=== PATIENT | female | born 1935 | race Caucasian/White ===

== ENCOUNTER 2017-12-07 13:45 | Outpatient (RCR) | payer BC, MEDICARE, SELFPAY ==
[2017-12-07 14:36] VITALS: BP 143/75; PULSE 75; RESP 22; TEMP 36.1; BMI 40.5
--- NOTE | 2017-12-07 19:37 | PCM.WC.HP ---
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 Status: Chronic Current Visit: Yes Code(s): I87.332 - Chronic venous hypertension (idiopathic) with ulcer and inflammation of left lower extremity; L97.929 - Non-pressure chronic ulcer of unspecified part of left lower leg with unspecified severity (3) Chronic kidney disease, stage III (moderate) Status: Chronic Current Visit: Yes Code(s): N18.3 - Chronic kidney disease, stage 3 (moderate) (4) HTN (hypertension) Status: Chronic Current Visit: Yes Qualifiers: Hypertension type: unspecified Qualified Code(s): I10 - Essential (primary) hypertension Code(s): I10 - Essential (primary) hypertension (5) CAD (coronary artery disease) Status: Chronic Current Visit: No Code(s): I25.10 - Atherosclerotic heart disease of [place] coronary artery without angina pectoris History of Present Illness Date of Service: 12/07/17 Chief Complaint: nonhealing wound of left lower leg History of Wound: Stacey presents to the wound healing center for evaluation and treatment of lower extremity edema and nonhealing ulcers of her left lower extremity. She is a poor historian. The wounds have been present for approximately 1 month and she has a long standing history of lower extremity edema preceding the wounds but denies having any vascular testing done in the past. She is on Keflex for treatment of the wounds but has not had improvement. No wound culture has been done prior to her treatment with Keflex. She is unable to wear compression stockings due to not being able to place them. She has erythema of her left great toe but it is not painful. MELISA bandage has been being applied to her leg to keep bandages on the wounds but not for compression. She sits in her recliner with her legs hanging down frequently. She does sleep in a bed. She denies fever or chills. 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) HTN (hypertension) (Chronic) CAD (coronary artery disease) (Chronic) Surgical History: angioplasty, total hip arthroplasty, - Allergies/Adverse Reactions: Allergies No Known Allergies Allergy (Verified 12/07/17 15:07) Home Medications: Ambulatory Orders Medication Instructions Recorded Ferrous Sulfate 325 mg PO DAILY 12/23/15 Metoprolol Tartrate [Lopressor 50 mg PO BID 12/23/15 (beta jignesh)] Omeprazole [Prilosec] 20 mg PO BID 12/23/15 Warfarin [Coumadin] 3.5 mg PO DAILY 12/23/15 Ergocalciferol [Vitamin D] 50,000 unit PO TU 01/13/16 Acetaminophen [Mapap] 500 mg PO DAILY 02/08/17 Guaifenesin [Robitussin] 10 ml PO Q4H PRN PRN 02/08/17 Bisacodyl [Dulcolax] 10 mg PO DAILY PRN #7 tablet 02/11/17 Calcium (Elemental) [Os-Roger 500] 1,000 mg PO DAILY@0800 #30 tablet 02/11/17 Cholecalciferol (VIT D3) [Vitamin 1,000 unit PO DAILY #30 tablet 02/11/17 D3] Docusate Sodium [Colace] 200 mg PO BID #60 capsule 02/11/17 Hydrocodone Bitart/Apap 5-325 1 - 2 tablet PO Q6H PRN PRN #20 02/11/17 [[place] 5/325] tablet Bumetanide 1 mg PO DAILY #30 02/14/17 - Family History Maternal Pulmonary Disease, - Paternal - - father had gangrene in his foot Sibling Diabetes - one with ESRD due to diabetes on HD Lives: Snf Smoking Status: Former smoker Tobacco Use: Non-smoker Alcohol: None Drugs: None Review of Systems Constitutional: Denies: Chills, Fever, Weight Change Eyes: Denies: Pain, Vision Change HEENT: Denies: Difficulty Hearing, Difficulty Swallowing, Sinus Congestion Cardiovascular: Reports: Edema. Denies: Chest Pain, Palpitations Respiratory: Denies: Cough, Shortness of Breath Gastrointestinal: Denies: Diarrhea, Nausea, Vomiting Genitourinary: Denies: Dysuria, Hematuria Skin: Reports: Wounds Hematologic/ Lymphatic: Denies: Easy Bruising, Easy Bleeding - Physical Exam Vital Signs Temp Pulse Resp BP 96.9 F L 75 22 H 143/75 H 12/07/17 14:36 12/07/17 14:36 12/07/17 14:36 12/07/17 14:36 General: Alert, Oriented x3, Cooperative, No apparent distress HEENT: Atraumatic, Normocephalic Oral: Moist Mucosa Lungs: Clear to auscultation Cardiovascular: Regular rate, Regular Rhythm Abdomen: Soft, Non Tender, Obese Extremities: Edema Skin: Ulcer/ Wound Wound Measurements and Assessment WC - Nurse 1 - General Ulcer Measurement Start: 12/07/17 14:23 Freq: Status: Active Protocol: Activity Type Activity Date Activity User E-Sign Co-Sign Detail Recorded Client Recorded Date Recorded By Document 12/07/17 14:36 DL [id number] 12/07/17 15:04 DL 12/07/17 14:36 Wound Center Nurse 1 [Ulcer Assessment] #2 L Post LE -Current Size (cm) - Length 3 -Current Size (cm) - Width 2.6 -Current Size (cm) - Depth 0.2 -Total Square Cm 7.8 -Photo Taken Yes -Classification - Thickness Partial Thickness -Exudate Amt Medium (34-66%) -Exudate Type Serosanguineous -Wound Margin Distinct, Outline Attached -Granulation Amt Medium (34-66%) -Granulation Quality [place] -Necrosis Amt Medium (34-66%) -Necrotic Tissue Type Adherent Slough -Structure Exposed N/A -Texture (Gabby-wound Skin Appearance) Localized Edema Scarring -Moisture (Gabby-wound Skin Appearance No Abnormality ) -Color (Gabyb-wound Skin Appearance) Erythema Hemosiderin Staining -Temperature (Gabby-wound Skin No Abnormality Appearance) (Pt Warm) -Ulcer Cleansing Rinsed/ Irrigated with Saline -Foul Odor after Cleansing No -Anesthetic Used 4% Lidocaine Solution #1 L Med LE -Current Size (cm) - Length 4.2 -Current Size (cm) - Width 5.5 -Current Size (cm) - Depth 0.1 -Total Square Cm 23.10 -Photo Taken Yes -Classification - Thickness Partial Thickness -Exudate Amt Medium (34-66%) -Exudate Type Serosanguineous -Wound Margin Distinct, Outline Attached -Granulation Amt Medium (34-66%) -Granulation Quality [place] -Necrosis Amt Medium (34-66%) -Necrotic Tissue Type Adherent Slough -Structure Exposed N/A -Texture (Gabby-wound Skin Appearance) Localized Edema -Moisture (Gabby-wound Skin Appearance No Abnormality ) -Color (Gabby-wound Skin Appearance) Erythema Hemosiderin Staining -Temperature (Gabby-wound Skin No Abnormality Appearance) (Pt Warm) -Tenderness on Palpation (Gabby-wound No Skin Appearance) -Ulcer Cleansing Rinsed/ Irrigated with Saline -Foul Odor after Cleansing No -Anesthetic Used 4% Lidocaine Solution [Edema Assessment] -Right Calf (cm) 52 -Right Ankle (cm) 28 -Left Calf (cm) 51 -Left Ankle (cm) 27.5 WC - Nurse 2 - General Ulcer CM Notes Start: 12/07/17 14:23 Freq: Status: Active Protocol: Activity Type Activity Date Activity User E-Sign Co-Sign Detail Recorded Client Recorded Date Recorded By Document 12/07/17 15:28 [id number] 12/07/17 15:39 12/07/17 15:28 Wound Center Nurse 2 [Procedure/Treatment] #2 L Post LE -Time 15:33 -Correct Patient Yes -Correct Side, Site, Position Yes -Correct Procedure Yes -Procedure Performed Yes -Type of Procedure Debridement -Clinical Debridement Subcutaneous -Post Debridement Size (cm) - Length 2.7 -Post Debridement Size (cm) - Width 2.3 -Post Debridement Size (cm) - Depth 0.1 -Total Square Cm 6.21 -Wound/Ulcer Outcome Not Healed -Ulcer Cleansing Rinsed/ Irrigated with Saline -Foul Odor after Cleansing No -Bioengineered Tissue No -Bleeding Controlled with NA -Treatment Response Procedure Tolerated Well #1 L Med LE -Time 15:35 -Correct Patient Yes -Correct Side, Site, Position Yes -Correct Procedure Yes -Procedure Performed Yes -Type of Procedure Debridement -Clinical Debridement Subcutaneous -Post Debridement Size (cm) - Length 4.6 -Post Debridement Size (cm) - Width 7.1 -Post Debridement Size (cm) - Depth 0.1 -Total Square Cm 32.66 -Wound/Ulcer Outcome Not Healed -Ulcer Cleansing Rinsed/ Irrigated with Saline -Foul Odor after Cleansing No -Bioengineered Tissue No -Bleeding Controlled with NA -Treatment Response Procedure Tolerated Well [See Physician Procedure note for Specifics] Pain Scale: 0-10 Numeric [Pain] -Is Patient Pain Free? Yes Psych/Mental Status: Normal Affect, Appropriate Debridement Note Post-Debridement Measurements/Treatment WC - Nurse 2 - General Ulcer CM Notes Start: 12/07/17 14:23 Freq: Status: Active Protocol: Activity Type Activity Date Activity User E-Sign Co-Sign Detail Recorded Client Recorded Date Recorded By Document 12/07/17 15:28 [id number] 12/07/17 15:39 12/07/17 15:28 Wound Center Nurse 2 #2 L Post LE -Time 15:33 -Correct Patient Yes -Correct Side, Site, Position Yes -Correct Procedure Yes -Procedure Performed Yes -Type of Procedure Debridement -Clinical Debridement Subcutaneous -Post Debridement Size (cm) - Length 2.7 -Post Debridement Size (cm) - Width 2.3 -Post Debridement Size (cm) - Depth 0.1 -Total Square Cm 6.21 -Wound/Ulcer Outcome Not Healed -Ulcer Cleansing Rinsed/ Irrigated with Saline -Foul Odor after Cleansing No -Bioengineered Tissue No -Bleeding Controlled with NA -Treatment Response Procedure Tolerated Well #1 L Med LE -Time 15:35 -Correct Patient Yes -Correct Side, Site, Position Yes -Correct Procedure Yes -Procedure Performed Yes -Type of Procedure Debridement -Clinical Debridement Subcutaneous -Post Debridement Size (cm) - Length 4.6 -Post Debridement Size (cm) - Width 7.1 -Post Debridement Size (cm) - Depth 0.1 -Total Square Cm 32.66 -Wound/Ulcer Outcome Not Healed -Ulcer Cleansing Rinsed/ Irrigated with Saline -Foul Odor after Cleansing No -Bioengineered Tissue No -Bleeding Controlled with NA -Treatment Response Procedure Tolerated Well Pain Scale: 0-10 Numeric Is Patient Pain Free? Yes Wound debrided: left posterior LE Laterality: Left Type of Debridement: Excisional debridement Anesthesia Used: 4% Lidocaine Solution Depth: Down to and including healthy tissue, in the subcutaneous layer Percentage of wound debrided: 100 Instrument Used: 5mm curette Tissue Removed: yellow slough, devitalized tissue Severity: Fat Layer Exposed Amount of bleeding with debridement: Mild Bleeding Controlled with: Compression and gauze Patient tolerated procedure well - Additional Wound Wound debrided: left medial LE Laterality: Left Type of Debridement: Excisional debridement Anesthesia Used: 4% Lidocaine Solution Depth: Down to and including healthy tissue, in the subcutaneous layer Percentage of wound debrided: 100 Instrument Used: 5mm curette Tissue Removed: yellow slough, devitalized tissue Severity: Fat Layer Exposed Amount of bleeding with debridement: Mild Bleeding Controlled with: Compression and gauze Patient tolerated procedure: Patient tolerated procedure well Assessment/Plan Active Problems Lymphedema of both lower extremities (Chronic) 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) Chronic kidney disease, stage III (moderate) (Chronic) HTN (hypertension) (Chronic) Assessment: lymphedema. venous ulcers of left LE. morbid obesity Plan: Stacey's wounds were evaluated and debrided today. Wound cultures were taken due to odor and erythema which persists although she is taking Keflex for over 1 week. Labs were requested from [facility]. Vascular testing was ordered to be completed prior to her next visit. Will adjust antibiotic based on wound culture results. Will treat her wounds with Aquacel Ag and use Surepress for compression. If her vascular studies are ok would consider using 3M or UNNA compression wraps. F/U in 1 week.
--- NOTE | 2017-12-07 20:40 | HP.PCM_ITS ---
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 Status: Chronic Current Visit: Yes Code(s): I87.332 - Chronic venous hypertension (idiopathic) with ulcer and inflammation of left lower extremity; L97.929 - Non-pressure chronic ulcer of unspecified part of left lower leg with unspecified severity (3) Chronic kidney disease, stage III (moderate) Status: Chronic Current Visit: Yes Code(s): N18.3 - Chronic kidney disease, stage 3 (moderate) (4) HTN (hypertension) Status: Chronic Current Visit: Yes Qualifiers: Hypertension type: unspecified Qualified Code(s): I10 - Essential (primary ) hypertension Code(s): I10 - Essential (primary) hypertension (5) CAD (coronary artery disease) Status: Chronic Current Visit: No Code(s): I25.10 - Atherosclerotic heart disease of [place] coronary artery without angina pectoris History of Present Illness Date of Service: 12/07/17 Chief Complaint: nonhealing wound of left lower leg History of Wound: Stacey presents to the wound healing center for evaluation and treatment of lower extremity edema and nonhealing ulcers of her left lower extremity. She is a poor historian. The wounds have been present for approximately 1 month and she has a long standing history of lower extremity edema preceding the wounds but denies having any vascular testing done in the past. She is on Keflex for treatment of the wounds but has not had improvement. No wound culture has been done prior to her treatment with Keflex. She is unable to wear compression stockings due to not being able to place them. She has erythema of her left great toe but it is not painful. MELISA bandage has been being applied to her leg to keep bandages on the wounds but not for compression. She sits in her recliner with her legs hanging down frequently. She does sleep in a bed. She denies fever or chills. 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) HTN (hypertension) (Chronic) CAD (coronary artery disease) (Chronic) Surgical History: angioplasty, total hip arthroplasty, - Allergies/Adverse Reactions: Allergies No Known Allergies Allergy (Verified 12/07/17 15:07) Home Medications: Ambulatory Orders Medication Instructions Recorded Ferrous Sulfate 325 mg PO DAILY 12/23/15 Metoprolol Tartrate [Lopressor 50 mg PO BID 12/23/15 (beta jignesh)] Omeprazole [Prilosec] 20 mg PO BID 12/23/15 Warfarin [Coumadin] 3.5 mg PO DAILY 12/23/15 Ergocalciferol [Vitamin D] 50,000 unit PO TU 01/13/16 Acetaminophen [Mapap] 500 mg PO DAILY 02/08/17 Guaifenesin [Robitussin] 10 ml PO Q4H PRN PRN 02/08/17 Bisacodyl [Dulcolax] 10 mg PO DAILY PRN #7 tablet 02/11/17 Calcium (Elemental) [Os-Roger 500] 1,000 mg PO DAILY@0800 #30 tablet 02/11/17 Cholecalciferol (VIT D3) [Vitamin 1,000 unit PO DAILY #30 tablet 02/11/17 D3] Docusate Sodium [Colace] 200 mg PO BID #60 capsule 02/11/17 Hydrocodone Bitart/Apap 5-325 1 - 2 tablet PO Q6H PRN PRN #20 02/11/17 [[place] 5/325] tablet Bumetanide 1 mg PO DAILY #30 02/14/17 - Family History Maternal Pulmonary Disease, - Paternal - - father had gangrene in his foot Sibling Diabetes - one with ESRD due to diabetes on HD Lives: [facility] Smoking Status: Former smoker Tobacco Use: Non-smoker Alcohol: None Drugs: None Review of Systems Constitutional: Denies: Chills, Fever, Weight Change Eyes: Denies: Pain, Vision Change HEENT: Denies: Difficulty Hearing, Difficulty Swallowing, Sinus Congestion Cardiovascular: Reports: Edema. Denies: Chest Pain, Palpitations Respiratory: Denies: Cough, Shortness of Breath Gastrointestinal: Denies: Diarrhea, Nausea, Vomiting Genitourinary: Denies: Dysuria, Hematuria Skin: Reports: Wounds Hematologic/ Lymphatic: Denies: Easy Bruising, Easy Bleeding - Physical Exam Vital Signs Temp Pulse Resp BP 96.9 F L 75 22 H 143/75 H 12/07/17 14:36 12/07/17 14:36 12/07/17 14:36 12/07/17 14:36 General: Alert, Oriented x3, Cooperative, No apparent distress HEENT: Atraumatic, Normocephalic Oral: Moist Mucosa Lungs: Clear to auscultation Cardiovascular: Regular rate, Regular Rhythm Abdomen: Soft, Non Tender, Obese Extremities: Edema Skin: Ulcer/ Wound Wound Measurements and Assessment WC - Nurse 1 - General Ulcer Measurement Start: 12/07/17 14:23 Freq: Status: Active Protocol: Activity Type Activity Date Activity User E-Sign Co-Sign Detail Recorded Client Recorded Date Recorded By Document 12/07/17 14:36 DL [id number] 12/07/17 15:04 DL 12/07/17 14:36 Wound Center Nurse 1 [Ulcer Assessment] #2 L Post LE -Current Size (cm) - Length 3 -Current Size (cm) - Width 2.6 -Current Size (cm) - Depth 0.2 -Total Square Cm 7.8 -Photo Taken Yes -Classification - Thickness Partial Thickness -Exudate Amt Medium (34-66%) -Exudate Type Serosanguineous -Wound Margin Distinct, Outline Attached -Granulation Amt Medium (34-66%) -Granulation Quality [place] -Necrosis Amt Medium (34-66%) -Necrotic Tissue Type Adherent Slough -Structure Exposed N/A -Texture (Gabby-wound Skin Appearance) Localized Edema Scarring -Moisture (Gabby-wound Skin Appearance No Abnormality ) -Color (Gabby-wound Skin Appearance) Erythema Hemosiderin Staining -Temperature (Gabby-wound Skin No Abnormality Appearance) (Pt Warm) -Ulcer Cleansing Rinsed/ Irrigated with Saline -Foul Odor after Cleansing No -Anesthetic Used 4% Lidocaine Solution #1 L Med LE -Current Size (cm) - Length 4.2 -Current Size (cm) - Width 5.5 -Current Size (cm) - Depth 0.1 -Total Square Cm 23.10 -Photo Taken Yes -Classification - Thickness Partial Thickness -Exudate Amt Medium (34-66%) -Exudate Type Serosanguineous -Wound Margin Distinct, Outline Attached -Granulation Amt Medium (34-66%) -Granulation Quality [place] -Necrosis Amt Medium (34-66%) -Necrotic Tissue Type Adherent Slough -Structure Exposed N/A -Texture (Gabby-wound Skin Appearance) Localized Edema -Moisture (Gabby-wound Skin Appearance No Abnormality ) -Color (Gabby-wound Skin Appearance) Erythema Hemosiderin Staining -Temperature (Gabby-wound Skin No Abnormality Appearance) (Pt Warm) -Tenderness on Palpation (Gabby-wound No Skin Appearance) -Ulcer Cleansing Rinsed/ Irrigated with Saline -Foul Odor after Cleansing No -Anesthetic Used 4% Lidocaine Solution [Edema Assessment] -Right Calf (cm) 52 -Right Ankle (cm) 28 -Left Calf (cm) 51 -Left Ankle (cm) 27.5 WC - Nurse 2 - General Ulcer CM Notes Start: 12/07/17 14:23 Freq: Status: Active Protocol: Activity Type Activity Date Activity User E-Sign Co-Sign Detail Recorded Client Recorded Date Recorded By Document 12/07/17 15:28 [id number] 12/07/17 15:39 12/07/17 15:28 Wound Center Nurse 2 [Procedure/Treatment] #2 L Post LE -Time 15:33 -Correct Patient Yes -Correct Side, Site, Position Yes -Correct Procedure Yes -Procedure Performed Yes -Type of Procedure Debridement -Clinical Debridement Subcutaneous -Post Debridement Size (cm) - Length 2.7 -Post Debridement Size (cm) - Width 2.3 -Post Debridement Size (cm) - Depth 0.1 -Total Square Cm 6.21 -Wound/Ulcer Outcome Not Healed -Ulcer Cleansing Rinsed/ Irrigated with Saline -Foul Odor after Cleansing No -Bioengineered Tissue No -Bleeding Controlled with NA -Treatment Response Procedure Tolerated Well #1 L Med LE -Time 15:35 -Correct Patient Yes -Correct Side, Site, Position Yes -Correct Procedure Yes -Procedure Performed Yes -Type of Procedure Debridement -Clinical Debridement Subcutaneous -Post Debridement Size (cm) - Length 4.6 -Post Debridement Size (cm) - Width 7.1 -Post Debridement Size (cm) - Depth 0.1 -Total Square Cm 32.66 -Wound/Ulcer Outcome Not Healed -Ulcer Cleansing Rinsed/ Irrigated with Saline -Foul Odor after Cleansing No -Bioengineered Tissue No -Bleeding Controlled with NA -Treatment Response Procedure Tolerated Well [See Physician Procedure note for Specifics] Pain Scale: 0-10 Numeric [Pain] -Is Patient Pain Free? Yes Psych/Mental Status: Normal Affect, Appropriate Debridement Note Post-Debridement Measurements/Treatment WC - Nurse 2 - General Ulcer CM Notes Start: 12/07/17 14:23 Freq: Status: Active Protocol: Activity Type Activity Date Activity User E-Sign Co-Sign Detail Recorded Client Recorded Date Recorded By Document 12/07/17 15:28 [id number] 12/07/17 15:39 12/07/17 15:28 Wound Center Nurse 2 #2 L Post LE -Time 15:33 -Correct Patient Yes -Correct Side, Site, Position Yes -Correct Procedure Yes -Procedure Performed Yes -Type of Procedure Debridement -Clinical Debridement Subcutaneous -Post Debridement Size (cm) - Length 2.7 -Post Debridement Size (cm) - Width 2.3 -Post Debridement Size (cm) - Depth 0.1 -Total Square Cm 6.21 -Wound/Ulcer Outcome Not Healed -Ulcer Cleansing Rinsed/ Irrigated with Saline -Foul Odor after Cleansing No -Bioengineered Tissue No -Bleeding Controlled with NA -Treatment Response Procedure Tolerated Well #1 L Med LE -Time 15:35 -Correct Patient Yes -Correct Side, Site, Position Yes -Correct Procedure Yes -Procedure Performed Yes -Type of Procedure Debridement -Clinical Debridement Subcutaneous -Post Debridement Size (cm) - Length 4.6 -Post Debridement Size (cm) - Width 7.1 -Post Debridement Size (cm) - Depth 0.1 -Total Square Cm 32.66 -Wound/Ulcer Outcome Not Healed -Ulcer Cleansing Rinsed/ Irrigated with Saline -Foul Odor after Cleansing No -Bioengineered Tissue No -Bleeding Controlled with NA -Treatment Response Procedure Tolerated Well Pain Scale: 0-10 Numeric Is Patient Pain Free? Yes Wound debrided: left posterior LE Laterality: Left Type of Debridement: Excisional debridement Anesthesia Used: 4% Lidocaine Solution Depth: Down to and including healthy tissue, in the subcutaneous layer Percentage of wound debrided: 100 Instrument Used: 5mm curette Tissue Removed: yellow slough, devitalized tissue Severity: Fat Layer Exposed Amount of bleeding with debridement: Mild Bleeding Controlled with: Compression and gauze Patient tolerated procedure well - Additional Wound Wound debrided: left medial LE Laterality: Left Type of Debridement: Excisional debridement Anesthesia Used: 4% Lidocaine Solution Depth: Down to and including healthy tissue, in the subcutaneous layer Percentage of wound debrided: 100 Instrument Used: 5mm curette Tissue Removed: yellow slough, devitalized tissue Severity: Fat Layer Exposed Amount of bleeding with debridement: Mild Bleeding Controlled with: Compression and gauze Patient tolerated procedure: Patient tolerated procedure well Assessment/Plan Active Problems Lymphedema of both lower extremities (Chronic) 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) Chronic kidney disease, stage III (moderate) (Chronic) HTN (hypertension) (Chronic) Assessment: lymphedema. venous ulcers of left LE. morbid obesity Plan: Stacey's wounds were evaluated and debrided today. Wound cultures were taken due to odor and erythema which persists although she is taking Keflex for over 1 week. Labs were requested from [facility]. Vascular testing was ordered to be completed prior to her next visit. Will adjust antibiotic based on wound culture results. Will treat her wounds with Aquacel Ag and use Surepress for compression. If her vascular studies are ok would consider using 3M or UNNA compression wraps. F/U in 1 week.
== END 2017-12-15 23:59 ==
LOC: WC 13:45
PROVIDERS: Family Provider Internal Medicine; PCP Internal Medicine; Visit Provider Family Medicine
DX: I87.332 Chronic venous hypertension (idiopathic) with ulcer and inflammation of left lower extremity (principal); L97.822 Non-pressure chronic ulcer of other part of left lower leg with fat layer exposed; I12.9 Hypertensive chronic kidney disease with stage 1 through stage 4 chronic kidney disease, or unspecified chronic kidney disease; N18.3 Chronic kidney disease, stage 3 (moderate); I89.0 Lymphedema, not elsewhere classified; E66.01 Morbid (severe) obesity due to excess calories; Z68.41 Body mass index [BMI] 40.0-44.9, adult; Z71.3 Dietary counseling and surveillance; I25.10 Atherosclerotic heart disease of native coronary artery without angina pectoris; Z87.891 Personal history of nicotine dependence
CPT/HCPCS: 11042; 87070; 87075; 87076; 87077; 87186; 87205; 99214; G0463

== ENCOUNTER 2018-01-11 14:00 | Outpatient (RCR) | payer BC, MEDICARE, SELFPAY ==
[2017-12-16 01:14] VITALS: BP 143/75; PULSE 75; RESP 22; TEMP 36.1
[2017-12-28 13:49] VITALS: BP 159/74; PULSE 76; RESP 18; TEMP 36.7
--- NOTE | 2017-12-28 18:13 | PCM.WC.PN ---
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 Status: Chronic Current Visit: Yes Code(s): I87.332 - Chronic venous hypertension (idiopathic) with ulcer and inflammation of left lower extremity; L97.929 - Non-pressure chronic ulcer of unspecified part of left lower leg with unspecified severity Type of Wound Date of Service: 12/28/17 Chief Complaint: nonhealing wound of left lower leg History of Wound: Stacey presents to the wound healing center for evaluation and treatment of lower extremity edema and nonhealing ulcers of her left lower extremity. She is a poor historian. The wounds have been present for approximately 1 month and she has a long standing history of lower extremity edema preceding the wounds but denies having any vascular testing done in the past. She is on Keflex for treatment of the wounds but has not had improvement. No wound culture has been done prior to her treatment with Keflex. She is unable to wear compression stockings due to not being able to place them. She has erythema of her left great toe but it is not painful. MELISA bandage has been being applied to her leg to keep bandages on the wounds but not for compression. She sits in her recliner with her legs hanging down frequently. She does sleep in a bed. She denies fever or chills. Progress of Wound: Stacey's wounds have improved. She completed course of Bactrim DS but was unable to tolerate Flagyl due to itching. She has been having her legs wrapped with MELISA bandages. She denies fever, chills or increased pain. - Physical Exam Vital Signs Temp Pulse Resp BP 98.0 F 76 18 159/74 H 12/28/17 13:49 12/28/17 13:49 12/28/17 13:49 12/28/17 13:49 General: Alert, Oriented x3, Cooperative, No apparent distress HEENT: Atraumatic, Normocephalic Oral: Moist Mucosa Abdomen: Soft, Non-Distended, Obese Extremities: Edema Skin: Ulcer/ Wound Wound Measurements and Assessment WC - Nurse 1 - General Ulcer Measurement Start: 12/28/17 10:38 Freq: Status: Active Protocol: Activity Type Activity Date Activity User E-Sign Co-Sign Detail Recorded Client Recorded Date Recorded By Document 12/28/17 13:49 [id number] 12/28/17 13:53 CS 12/28/17 13:49 Wound Center Nurse 1 [Ulcer Assessment] #2 L Post LE -Combined with other wound No -Current Size (cm) - Length 2.4 -Current Size (cm) - Width 2.2 -Current Size (cm) - Depth 0 -Total Square Cm 5.28 -Photo Taken No -Epithelialization Small 1-33% -Tunneling No -Undermining/Tunneling No -Circular Undermining No -Exudate Amt Small (1-33%) -Exudate Type Serosanguineous -Wound Margin Distinct, Outline Attached -Granulation Amt Small (1-33%) -Granulation Quality [place] -Necrosis Amt None Present (0 %) -Necrotic Tissue Type Adherent Slough -Structure Exposed None/Limited to Skin Breakdown -Texture (Gabby-wound Skin Appearance) Assessed Not Assessed -Moisture (Gabby-wound Skin Appearance Assessed ) Maceration -Color (Gabby-wound Skin Appearance) Assessed Erythema -Temperature (Gabby-wound Skin No Abnormality Appearance) (Pt Warm) -Tenderness on Palpation (Gabby-wound No Skin Appearance) -Ulcer Cleansing Wound Cleanser -Foul Odor after Cleansing No -Anesthetic Used 4% Lidocaine Solution #1 L Med LE -Combined with other wound No -Current Size (cm) - Length 4.5 -Current Size (cm) - Width 3.4 -Current Size (cm) - Depth 0 -Total Square Cm 15.30 -Photo Taken No -Epithelialization Medium 34-66% -Tunneling No -Undermining/Tunneling No -Circular Undermining No -Exudate Amt Small (1-33%) -Exudate Type Serosanguineous -Wound Margin Distinct, Outline Attached -Granulation Amt Large (67-100%) -Granulation Quality [place] -Slough/Fibrin No -Necrosis Amt None Present (0 %) -Necrotic Tissue Type Adherent Slough -Structure Exposed None/Limited to Skin Breakdown -Texture (Gabby-wound Skin Appearance) Assessed Scarring -Moisture (Gabby-wound Skin Appearance No Abnormality ) Assessed -Color (Gabby-wound Skin Appearance) Assessed Erythema -Temperature (Gabby-wound Skin No Abnormality Appearance) (Pt Warm) -Tenderness on Palpation (Gabby-wound No Skin Appearance) -Ulcer Cleansing Wound Cleanser -Foul Odor after Cleansing No -Anesthetic Used 4% Lidocaine Solution [Edema Assessment] -Lower Limb Edema Present Yes -Right Calf (cm) 45.4 -Right Ankle (cm) 28.2 -Left Calf (cm) 45.0 -Left Ankle (cm) 28.5 WC - Nurse 2 - General Ulcer CM Notes Start: 12/28/17 10:38 Freq: Status: Active Protocol: Activity Type Activity Date Activity User E-Sign Co-Sign Detail Recorded Client Recorded Date Recorded By Document 12/28/17 14:48 [id number] 12/28/17 14:54 12/28/17 14:48 Wound Center Nurse 2 [Procedure/Treatment] #2 L Post LE -Time 14:53 -Correct Patient Yes -Correct Side, Site, Position Yes -Correct Procedure Yes -Procedure Performed Yes -Type of Procedure Debridement -Clinical Debridement Subcutaneous -Post Debridement Size (cm) - Length 1.4 -Post Debridement Size (cm) - Width 0.5 -Post Debridement Size (cm) - Depth 0.1 -Total Square Cm 0.70 -Wound/Ulcer Outcome Not Healed -Ulcer Cleansing Rinsed/ Irrigated with Saline -Foul Odor after Cleansing No -Bioengineered Tissue No -Topical Lidocaine (%) 4 -Bleeding Controlled with Pressure -Treatment Response Procedure Tolerated Well #1 L Med LE -Time 14:53 -Correct Patient Yes -Correct Side, Site, Position Yes -Correct Procedure Yes -Procedure Performed Yes -Type of Procedure Debridement -Clinical Debridement Subcutaneous -Post Debridement Size (cm) - Length 1.2 -Post Debridement Size (cm) - Width 4.8 -Post Debridement Size (cm) - Depth 0.1 -Total Square Cm 5.76 -Wound/Ulcer Outcome Not Healed -Ulcer Cleansing Rinsed/ Irrigated with Saline -Foul Odor after Cleansing No -Bioengineered Tissue No -Topical Lidocaine (%) 4 -Bleeding Controlled with Pressure -Treatment Response Procedure Tolerated Well [See Physician Procedure note for Specifics] Pain Scale: 0-10 Numeric [Pain] -Is Patient Pain Free? Yes Psych/Mental Status: Normal Affect, Appropriate Debridement Note Post-Debridement Measurements/Treatment VALENTINA - Nurse 2 - General Ulcer CM Notes Start: 12/28/17 10:38 Freq: Status: Active Protocol: Activity Type Activity Date Activity User E-Sign Co-Sign Detail Recorded Client Recorded Date Recorded By Document 12/28/17 14:48 [id number] 12/28/17 14:54 12/28/17 14:48 Wound Center Nurse 2 #2 L Post LE -Time 14:53 -Correct Patient Yes -Correct Side, Site, Position Yes -Correct Procedure Yes -Procedure Performed Yes -Type of Procedure Debridement -Clinical Debridement Subcutaneous -Post Debridement Size (cm) - Length 1.4 -Post Debridement Size (cm) - Width 0.5 -Post Debridement Size (cm) - Depth 0.1 -Total Square Cm 0.70 -Wound/Ulcer Outcome Not Healed -Ulcer Cleansing Rinsed/ Irrigated with Saline -Foul Odor after Cleansing No -Bioengineered Tissue No -Topical Lidocaine (%) 4 -Bleeding Controlled with Pressure -Treatment Response Procedure Tolerated Well #1 L Med LE -Time 14:53 -Correct Patient Yes -Correct Side, Site, Position Yes -Correct Procedure Yes -Procedure Performed Yes -Type of Procedure Debridement -Clinical Debridement Subcutaneous -Post Debridement Size (cm) - Length 1.2 -Post Debridement Size (cm) - Width 4.8 -Post Debridement Size (cm) - Depth 0.1 -Total Square Cm 5.76 -Wound/Ulcer Outcome Not Healed -Ulcer Cleansing Rinsed/ Irrigated with Saline -Foul Odor after Cleansing No -Bioengineered Tissue No -Topical Lidocaine (%) 4 -Bleeding Controlled with Pressure -Treatment Response Procedure Tolerated Well Pain Scale: 0-10 Numeric Is Patient Pain Free? Yes Wound debrided: left posterior LE Laterality: Left Type of Debridement: Excisional debridement Anesthesia Used: 4% Lidocaine Solution Depth: Down to and including healthy tissue, in the subcutaneous layer Percentage of wound debrided: 100 Instrument Used: 5mm curette Tissue Removed: yellow slough, devitalized tissue Severity: Fat Layer Exposed Amount of bleeding with debridement: Mild Bleeding Controlled with: Compression and gauze Patient tolerated procedure well - Additional Wound Wound debrided: left medial LE cluster Laterality: Left Type of Debridement: Excisional debridement Anesthesia Used: 4% Lidocaine Solution Depth: Down to and including healthy tissue, in the subcutaneous layer Percentage of wound debrided: 100 Instrument Used: 5mm curette Tissue Removed: yellow slough, devitalized tissue Severity: Fat Layer Exposed Amount of bleeding with debridement: Mild Bleeding Controlled with: Compression and gauze Patient tolerated procedure: Patient tolerated procedure well Assessment/Plan Active Problems Lymphedema of both lower extremities (Chronic) 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) Assessment: lymphedema. venous ulcers of left LE. morbid obesity Plan: [place]'s wounds were evaluated and debrided today. Labs were requested from [facility] but have not been received. Vascular testing was ordered to be completed prior to her next visit but this was not done. Will continue to treat her wounds with Aquacel Ag and use Surepress for compression. Encouraged increased protein and offloading of her posterior left leg. F/U in 1 week.
--- NOTE | 2017-12-28 18:19 | PN.PCM_ITS ---
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 Status: Chronic Current Visit: Yes Code(s): I87.332 - Chronic venous hypertension (idiopathic) with ulcer and inflammation of left lower extremity; L97.929 - Non-pressure chronic ulcer of unspecified part of left lower leg with unspecified severity Type of Wound Date of Service: 12/28/17 Chief Complaint: nonhealing wound of left lower leg History of Wound: Stacey presents to the wound healing center for evaluation and treatment of lower extremity edema and nonhealing ulcers of her left lower extremity. She is a poor historian. The wounds have been present for approximately 1 month and she has a long standing history of lower extremity edema preceding the wounds but denies having any vascular testing done in the past. She is on Keflex for treatment of the wounds but has not had improvement. No wound culture has been done prior to her treatment with Keflex. She is unable to wear compression stockings due to not being able to place them. She has erythema of her left great toe but it is not painful. MELISA bandage has been being applied to her leg to keep bandages on the wounds but not for compression. She sits in her recliner with her legs hanging down frequently. She does sleep in a bed. She denies fever or chills. Progress of Wound: Stacey's wounds have improved. She completed course of Bactrim DS but was unable to tolerate Flagyl due to itching. She has been having her legs wrapped with MELISA bandages. She denies fever, chills or increased pain. - Physical Exam Vital Signs Temp Pulse Resp BP 98.0 F 76 18 159/74 H 12/28/17 13:49 12/28/17 13:49 12/28/17 13:49 12/28/17 13:49 General: Alert, Oriented x3, Cooperative, No apparent distress HEENT: Atraumatic, Normocephalic Oral: Moist Mucosa Abdomen: Soft, Non-Distended, Obese Extremities: Edema Skin: Ulcer/ Wound Wound Measurements and Assessment WC - Nurse 1 - General Ulcer Measurement Start: 12/28/17 10:38 Freq: Status: Active Protocol: Activity Type Activity Date Activity User E-Sign Co-Sign Detail Recorded Client Recorded Date Recorded By Document 12/28/17 13:49 [id number] 12/28/17 13:53 CS 12/28/17 13:49 Wound Center Nurse 1 [Ulcer Assessment] #2 L Post LE -Combined with other wound No -Current Size (cm) - Length 2.4 -Current Size (cm) - Width 2.2 -Current Size (cm) - Depth 0 -Total Square Cm 5.28 -Photo Taken No -Epithelialization Small 1-33% -Tunneling No -Undermining/Tunneling No -Circular Undermining No -Exudate Amt Small (1-33%) -Exudate Type Serosanguineous -Wound Margin Distinct, Outline Attached -Granulation Amt Small (1-33%) -Granulation Quality [place] -Necrosis Amt None Present (0 %) -Necrotic Tissue Type Adherent Slough -Structure Exposed None/Limited to Skin Breakdown -Texture (Gabby-wound Skin Appearance) Assessed Not Assessed -Moisture (Gabby-wound Skin Appearance Assessed ) Maceration -Color (Gabby-wound Skin Appearance) Assessed Erythema -Temperature (Gabby-wound Skin No Abnormality Appearance) (Pt Warm) -Tenderness on Palpation (Gabby-wound No Skin Appearance) -Ulcer Cleansing Wound Cleanser -Foul Odor after Cleansing No -Anesthetic Used 4% Lidocaine Solution #1 L Med LE -Combined with other wound No -Current Size (cm) - Length 4.5 -Current Size (cm) - Width 3.4 -Current Size (cm) - Depth 0 -Total Square Cm 15.30 -Photo Taken No -Epithelialization Medium 34-66% -Tunneling No -Undermining/Tunneling No -Circular Undermining No -Exudate Amt Small (1-33%) -Exudate Type Serosanguineous -Wound Margin Distinct, Outline Attached -Granulation Amt Large (67-100%) -Granulation Quality [place] -Slough/Fibrin No -Necrosis Amt None Present (0 %) -Necrotic Tissue Type Adherent Slough -Structure Exposed None/Limited to Skin Breakdown -Texture (Gabby-wound Skin Appearance) Assessed Scarring -Moisture (Gabby-wound Skin Appearance No Abnormality ) Assessed -Color (Gabby-wound Skin Appearance) Assessed Erythema -Temperature (Gabby-wound Skin No Abnormality Appearance) (Pt Warm) -Tenderness on Palpation (Gabby-wound No Skin Appearance) -Ulcer Cleansing Wound Cleanser -Foul Odor after Cleansing No -Anesthetic Used 4% Lidocaine Solution [Edema Assessment] -Lower Limb Edema Present Yes -Right Calf (cm) 45.4 -Right Ankle (cm) 28.2 -Left Calf (cm) 45.0 -Left Ankle (cm) 28.5 WC - Nurse 2 - General Ulcer CM Notes Start: 12/28/17 10:38 Freq: Status: Active Protocol: Activity Type Activity Date Activity User E-Sign Co-Sign Detail Recorded Client Recorded Date Recorded By Document 12/28/17 14:48 [id number] 12/28/17 14:54 12/28/17 14:48 Wound Center Nurse 2 [Procedure/Treatment] #2 L Post LE -Time 14:53 -Correct Patient Yes -Correct Side, Site, Position Yes -Correct Procedure Yes -Procedure Performed Yes -Type of Procedure Debridement -Clinical Debridement Subcutaneous -Post Debridement Size (cm) - Length 1.4 -Post Debridement Size (cm) - Width 0.5 -Post Debridement Size (cm) - Depth 0.1 -Total Square Cm 0.70 -Wound/Ulcer Outcome Not Healed -Ulcer Cleansing Rinsed/ Irrigated with Saline -Foul Odor after Cleansing No -Bioengineered Tissue No -Topical Lidocaine (%) 4 -Bleeding Controlled with Pressure -Treatment Response Procedure Tolerated Well #1 L Med LE -Time 14:53 -Correct Patient Yes -Correct Side, Site, Position Yes -Correct Procedure Yes -Procedure Performed Yes -Type of Procedure Debridement -Clinical Debridement Subcutaneous -Post Debridement Size (cm) - Length 1.2 -Post Debridement Size (cm) - Width 4.8 -Post Debridement Size (cm) - Depth 0.1 -Total Square Cm 5.76 -Wound/Ulcer Outcome Not Healed -Ulcer Cleansing Rinsed/ Irrigated with Saline -Foul Odor after Cleansing No -Bioengineered Tissue No -Topical Lidocaine (%) 4 -Bleeding Controlled with Pressure -Treatment Response Procedure Tolerated Well [See Physician Procedure note for Specifics] Pain Scale: 0-10 Numeric [Pain] -Is Patient Pain Free? Yes Psych/Mental Status: Normal Affect, Appropriate Debridement Note Post-Debridement Measurements/Treatment VALENTINA - Nurse 2 - General Ulcer CM Notes Start: 12/28/17 10:38 Freq: Status: Active Protocol: Activity Type Activity Date Activity User E-Sign Co-Sign Detail Recorded Client Recorded Date Recorded By Document 12/28/17 14:48 [id number] 12/28/17 14:54 12/28/17 14:48 Wound Center Nurse 2 #2 L Post LE -Time 14:53 -Correct Patient Yes -Correct Side, Site, Position Yes -Correct Procedure Yes -Procedure Performed Yes -Type of Procedure Debridement -Clinical Debridement Subcutaneous -Post Debridement Size (cm) - Length 1.4 -Post Debridement Size (cm) - Width 0.5 -Post Debridement Size (cm) - Depth 0.1 -Total Square Cm 0.70 -Wound/Ulcer Outcome Not Healed -Ulcer Cleansing Rinsed/ Irrigated with Saline -Foul Odor after Cleansing No -Bioengineered Tissue No -Topical Lidocaine (%) 4 -Bleeding Controlled with Pressure -Treatment Response Procedure Tolerated Well #1 L Med LE -Time 14:53 -Correct Patient Yes -Correct Side, Site, Position Yes -Correct Procedure Yes -Procedure Performed Yes -Type of Procedure Debridement -Clinical Debridement Subcutaneous -Post Debridement Size (cm) - Length 1.2 -Post Debridement Size (cm) - Width 4.8 -Post Debridement Size (cm) - Depth 0.1 -Total Square Cm 5.76 -Wound/Ulcer Outcome Not Healed -Ulcer Cleansing Rinsed/ Irrigated with Saline -Foul Odor after Cleansing No -Bioengineered Tissue No -Topical Lidocaine (%) 4 -Bleeding Controlled with Pressure -Treatment Response Procedure Tolerated Well Pain Scale: 0-10 Numeric Is Patient Pain Free? Yes Wound debrided: left posterior LE Laterality: Left Type of Debridement: Excisional debridement Anesthesia Used: 4% Lidocaine Solution Depth: Down to and including healthy tissue, in the subcutaneous layer Percentage of wound debrided: 100 Instrument Used: 5mm curette Tissue Removed: yellow slough, devitalized tissue Severity: Fat Layer Exposed Amount of bleeding with debridement: Mild Bleeding Controlled with: Compression and gauze Patient tolerated procedure well - Additional Wound Wound debrided: left medial LE cluster Laterality: Left Type of Debridement: Excisional debridement Anesthesia Used: 4% Lidocaine Solution Depth: Down to and including healthy tissue, in the subcutaneous layer Percentage of wound debrided: 100 Instrument Used: 5mm curette Tissue Removed: yellow slough, devitalized tissue Severity: Fat Layer Exposed Amount of bleeding with debridement: Mild Bleeding Controlled with: Compression and gauze Patient tolerated procedure: Patient tolerated procedure well Assessment/Plan Active Problems Lymphedema of both lower extremities (Chronic) 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) Assessment: lymphedema. venous ulcers of left LE. morbid obesity Plan: [place]'s wounds were evaluated and debrided today. Labs were requested from [facility] but have not been received. Vascular testing was ordered to be completed prior to her next visit but this was not done. Will continue to treat her wounds with Aquacel Ag and use Surepress for compression. Encouraged increased protein and offloading of her posterior left leg. F/U in 1 week.
[2018-01-11 14:23] VITALS: BP 152/76; PULSE 83; RESP 18; TEMP 36.4
--- NOTE | 2018-01-11 18:56 | PCM.WC.PN ---
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 Status: Chronic Current Visit: Yes Code(s): I87.332 - Chronic venous hypertension (idiopathic) with ulcer and inflammation of left lower extremity; L97.929 - Non-pressure chronic ulcer of unspecified part of left lower leg with unspecified severity Type of Wound Date of Service: 01/11/18 Chief Complaint: nonhealing wound of left lower leg History of Wound: Stacey presents to the wound healing center for evaluation and treatment of lower extremity edema and nonhealing ulcers of her left lower extremity. She is a poor historian. The wounds have been present for approximately 1 month and she has a long standing history of lower extremity edema preceding the wounds but denies having any vascular testing done in the past. She is on Keflex for treatment of the wounds but has not had improvement. No wound culture has been done prior to her treatment with Keflex. She is unable to wear compression stockings due to not being able to place them. She has erythema of her left great toe but it is not painful. MELISA bandage has been being applied to her leg to keep bandages on the wounds but not for compression. She sits in her recliner with her legs hanging down frequently. She does sleep in a bed. She denies fever or chills. Progress of Wound: Stacey's wounds have improved. Her medial LE is healed. Posterior calf is being offloaded per patient. She has been having her legs wrapped with MELISA bandages. She denies fever, chills or increased pain. - Physical Exam Vital Signs Temp Pulse Resp BP 97.5 F L 83 18 152/76 H 01/11/18 14:23 01/11/18 14:23 01/11/18 14:23 01/11/18 14:23 General: Alert, Oriented x3, Cooperative, No apparent distress HEENT: Atraumatic, Normocephalic Oral: Moist Mucosa Neck: Supple Lungs: Clear to auscultation Abdomen: Obese Extremities: Edema Skin: Ulcer/ Wound Wound Measurements and Assessment WC - Nurse 1 - General Ulcer Measurement Start: 12/28/17 10:38 Freq: Status: Active Protocol: Activity Type Activity Date Activity User E-Sign Co-Sign Detail Recorded Client Recorded Date Recorded By Document 01/11/18 14:23 [id number] 01/11/18 14:25 01/11/18 14:23 Wound Center Nurse 1 [Ulcer Assessment] #2 L Post LE -Combined with other wound No -Current Size (cm) - Length 2.3 -Current Size (cm) - Width 2.2 -Current Size (cm) - Depth 0.1 -Total Square Cm 5.06 -Date of Last Picture (Recall this 01/11/18 field) -Photo Taken Yes -Epithelialization None Present -Tunneling No -Undermining/Tunneling No -Circular Undermining No -Exudate Amt Small (1-33%) -Exudate Type Serosanguineous -Wound Margin Distinct, Outline Attached -Granulation Amt Small (1-33%) -Granulation Quality [place] Red -Temperature (Gabby-wound Skin No Abnormality Appearance) (Pt Warm) -Tenderness on Palpation (Gabby-wound No Skin Appearance) -Ulcer Cleansing Rinsed/ Irrigated with Saline -Foul Odor after Cleansing No -Anesthetic Used 4% Lidocaine Solution #1 L Med LE -Combined with other wound No -Current Size (cm) - Length 0.1 -Current Size (cm) - Width 0.1 -Current Size (cm) - Depth 0.1 -Total Square Cm 0.01 -Date of Last Picture (Recall this 01/11/18 field) -Photo Taken Yes -Epithelialization Large 67-100% -Tunneling No -Undermining/Tunneling No -Circular Undermining No [Edema Assessment] -Lower Limb Edema Present Yes -Left Calf (cm) 52.5 -Left Ankle (cm) 27.6 WC - Nurse 2 - General Ulcer CM Notes Start: 12/28/17 10:38 Freq: Status: Active Protocol: Activity Type Activity Date Activity User E-Sign Co-Sign Detail Recorded Client Recorded Date Recorded By Document 01/11/18 15:10 [id number] 01/11/18 15:12 01/11/18 15:10 Wound Center Nurse 2 [Procedure/Treatment] #2 L Post LE -Time 15:11 -Correct Patient Yes -Correct Side, Site, Position Yes -Correct Procedure Yes -Procedure Performed Yes -Type of Procedure Debridement -Clinical Debridement Subcutaneous -Post Debridement Size (cm) - Length 1.8 -Post Debridement Size (cm) - Width 2.4 -Post Debridement Size (cm) - Depth 0.1 -Total Square Cm 4.32 -Wound/Ulcer Outcome Not Healed -Ulcer Cleansing Rinsed/ Irrigated with Saline -Foul Odor after Cleansing No -Bioengineered Tissue No -Topical Lidocaine (%) 4 -Bleeding Controlled with Pressure -Treatment Response Procedure Tolerated Well #1 L Med LE -Time 15:11 -Correct Patient Yes -Correct Side, Site, Position Yes -Correct Procedure Yes -Procedure Performed Yes -Post Debridement Size (cm) - Length 0 -Post Debridement Size (cm) - Width 0 -Post Debridement Size (cm) - Depth 0 -Total Square Cm 0 -Wound/Ulcer Outcome Healed- Epithelialized -Ulcer Cleansing Rinsed/ Irrigated with Saline -Foul Odor after Cleansing No -Bioengineered Tissue No -Topical Lidocaine (%) 4 -Bleeding Controlled with NA -Treatment Response Procedure Tolerated Well [See Physician Procedure note for Specifics] Pain Scale: 0-10 Numeric [Pain] -Is Patient Pain Free? Yes Psych/Mental Status: Normal Affect, Appropriate Debridement Note Post-Debridement Measurements/Treatment WC - Nurse 2 - General Ulcer CM Notes Start: 12/28/17 10:38 Freq: Status: Active Protocol: Activity Type Activity Date Activity User E-Sign Co-Sign Detail Recorded Client Recorded Date Recorded By Document 12/28/17 14:48 [id number] 12/28/17 14:54 TM Document 01/11/18 15:10 [id number] 01/11/18 15:12 TM 12/28/17 01/11/18 14:48 15:10 Wound Center Nurse 2 #2 L Post LE -Time 14:53 15:11 -Correct Patient Yes Yes -Correct Side, Site, Position Yes Yes -Correct Procedure Yes Yes -Procedure Performed Yes Yes -Type of Procedure Debridement Debridement -Clinical Debridement Subcutaneous Subcutaneous -Post Debridement Size (cm) - Length 1.4 1.8 -Post Debridement Size (cm) - Width 0.5 2.4 -Post Debridement Size (cm) - Depth 0.1 0.1 -Total Square Cm 0.70 4.32 -Wound/Ulcer Outcome Not Healed Not Healed -Ulcer Cleansing Rinsed/ Rinsed/ Irrigated with Irrigated with Saline Saline -Foul Odor after Cleansing No No -Bioengineered Tissue No No -Topical Lidocaine (%) 4 4 -Bleeding Controlled with Pressure Pressure -Treatment Response Procedure Procedure Tolerated Well Tolerated Well #1 L Med LE -Time 14:53 15:11 -Correct Patient Yes Yes -Correct Side, Site, Position Yes Yes -Correct Procedure Yes Yes -Procedure Performed Yes Yes -Type of Procedure Debridement -Clinical Debridement Subcutaneous -Post Debridement Size (cm) - Length 1.2 0 -Post Debridement Size (cm) - Width 4.8 0 -Post Debridement Size (cm) - Depth 0.1 0 -Total Square Cm 5.76 0 -Wound/Ulcer Outcome Not Healed Healed- Epithelialized -Ulcer Cleansing Rinsed/ Rinsed/ Irrigated with Irrigated with Saline Saline -Foul Odor after Cleansing No No -Bioengineered Tissue No No -Topical Lidocaine (%) 4 4 -Bleeding Controlled with Pressure NA -Treatment Response Procedure Procedure Tolerated Well Tolerated Well Pain Scale: 0-10 Numeric Is Patient Pain Free? Yes Yes Wound debrided: left medial LE Laterality: Left No debridement was completed today - due to wound is healed - Additional Wound Wound debrided: left posterior calf Laterality: Left Type of Debridement: Excisional debridement Anesthesia Used: 4% Lidocaine Solution Depth: Down to and including healthy tissue, in the subcutaneous layer Percentage of wound debrided: 100 Instrument Used: 5mm curette Tissue Removed: yellow slough, devitalized tissue Severity: Fat Layer Exposed Amount of bleeding with debridement: Mild Bleeding Controlled with: Compression and gauze Patient tolerated procedure: Patient tolerated procedure well Assessment/Plan Active Problems Lymphedema of both lower extremities (Chronic) 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) Assessment: lymphedema. venous ulcers of left LE. morbid obesity Plan: [place] wounds were evaluated and debrided today. Vascular testing was ordered to be completed prior to her next visit but this was not done. Will continue to treat her wounds with Aquacel Ag and use Surepress for compression. Encouraged increased protein and offloading of her posterior left leg. F/U in 1 week.
== END 2018-01-15 23:59 ==
LOC: WC 14:00
PROVIDERS: Family Provider Internal Medicine; PCP Internal Medicine; Visit Provider Family Medicine
DX: I87.332 Chronic venous hypertension (idiopathic) with ulcer and inflammation of left lower extremity (principal); L97.822 Non-pressure chronic ulcer of other part of left lower leg with fat layer exposed; I89.0 Lymphedema, not elsewhere classified; E66.01 Morbid (severe) obesity due to excess calories; Z68.41 Body mass index [BMI] 40.0-44.9, adult; Z71.3 Dietary counseling and surveillance
CPT/HCPCS: 11042

== ENCOUNTER 2018-02-08 15:00 | Outpatient (RCR) | payer BC, MEDICARE, SELFPAY ==
[2018-01-16 01:09] VITALS: BP 152/76; PULSE 83; RESP 18; TEMP 36.4
[2018-01-18 14:09] VITALS: BP 121/60; PULSE 85; RESP 18; TEMP 36.3
[2018-01-25 14:35] VITALS: BP 140/62; PULSE 75; RESP 18; TEMP 36.7
--- NOTE | 2018-01-25 18:00 | PN.PCM_ITS ---
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 Status: Chronic Current Visit: Yes Code(s): I87.332 - Chronic venous hypertension (idiopathic) with ulcer and inflammation of left lower extremity; L97.929 - Non-pressure chronic ulcer of unspecified part of left lower leg with unspecified severity (3) On anticoagulant therapy Status: Chronic Current Visit: Yes Code(s): Z79.01 - moth exterminator (current) use of anticoagulants Type of Wound Date of Service: 01/25/18 Chief Complaint: nonhealing wound of left lower leg History of Wound: Stacey presents to the wound healing center for evaluation and treatment of lower extremity edema and nonhealing ulcers of her left lower extremity. She is a poor historian. The wounds have been present for approximately 1 month and she has a long standing history of lower extremity edema preceding the wounds but denies having any vascular testing done in the past. She is on Keflex for treatment of the wounds but has not had improvement. No wound culture has been done prior to her treatment with Keflex. She is unable to wear compression stockings due to not being able to place them. She has erythema of her left great toe but it is not painful. MELISA bandage has been being applied to her leg to keep bandages on the wounds but not for compression. She sits in her recliner with her legs hanging down frequently. She does sleep in a bed. She denies fever or chills. Progress of Wound: Stacey's wound has improved minimally. Her medial LE is healed. Posterior calf is being offloaded per patient. She has been having her legs wrapped with MELISA bandages. She denies fever, chills or increased pain. - Physical Exam Vital Signs Temp Pulse Resp BP 98.0 F 75 18 140/62 H 01/25/18 14:35 01/25/18 14:35 01/25/18 14:35 01/25/18 14:35 General: Alert, Oriented x3, Cooperative, No apparent distress HEENT: Atraumatic, Normocephalic Oral: Moist Mucosa Abdomen: Obese Extremities: Edema Skin: Ulcer/ Wound Wound Measurements and Assessment WC - Nurse 1 - General Ulcer Measurement Start: 01/18/18 13:59 Freq: Status: Active Protocol: Activity Type Activity Date Activity User E-Sign Co-Sign Detail Recorded Client Recorded Date Recorded By Document 01/25/18 14:35 [id number] 01/25/18 14:38 01/25/18 14:35 Wound Center Nurse 1 [Ulcer Assessment] #2 L Post LE -Current Size (cm) - Length 1.3 -Current Size (cm) - Width 2.4 -Current Size (cm) - Depth 0.1 -Total Square Cm 3.12 -Photo Taken No -Epithelialization Small 1-33% -Tunneling No -Undermining/Tunneling No -Circular Undermining No -Exudate Amt Small (1-33%) -Exudate Type Serosanguineous -Wound Margin Distinct, Outline Attached -Granulation Amt Medium (34-66%) -Granulation Quality [place] -Slough/Fibrin Yes -Necrosis Amt None Present (0 %) -Necrotic Tissue Type Adherent Slough -Structure Exposed None/Limited to Skin Breakdown -Texture (Gabby-wound Skin Appearance) No Abnormality Assessed -Moisture (Gabby-wound Skin Appearance No Abnormality ) Assessed -Temperature (Gabby-wound Skin No Abnormality Appearance) (Pt Warm) -Tenderness on Palpation (Gabby-wound Yes Skin Appearance) -Ulcer Cleansing Rinsed/ Irrigated with Saline -Foul Odor after Cleansing No -Anesthetic Used 5% Lidocaine Gel [Edema Assessment] -Lower Limb Edema Present Yes -Right Calf (cm) 49 -Right Ankle (cm) 29.5 -Left Calf (cm) 51.5 -Left Ankle (cm) 30 WC - Nurse 2 - General Ulcer CM Notes Start: 01/18/18 13:59 Freq: Status: Active Protocol: Activity Type Activity Date Activity User E-Sign Co-Sign Detail Recorded Client Recorded Date Recorded By Document 01/25/18 15:12 [id number] 01/25/18 15:15 01/25/18 15:12 Wound Center Nurse 2 [Procedure/Treatment] #2 L Post LE -Time 15:14 -Correct Patient Yes -Correct Side, Site, Position Yes -Correct Procedure Yes -Procedure Performed Yes -Type of Procedure Debridement -Clinical Debridement Subcutaneous -Post Debridement Size (cm) - Length 2.2 -Post Debridement Size (cm) - Width 2.4 -Post Debridement Size (cm) - Depth 0.1 -Total Square Cm 5.28 -Wound/Ulcer Outcome Not Healed -Ulcer Cleansing Rinsed/ Irrigated with Saline -Foul Odor after Cleansing No -Bioengineered Tissue No -Topical Lidocaine (%) 4 -Bleeding Controlled with Pressure -Treatment Response Procedure Tolerated Well [See Physician Procedure note for Specifics] Pain Scale: 0-10 Numeric [Pain] -Is Patient Pain Free? Yes Psych/Mental Status: Normal Affect, Appropriate Debridement Note Post-Debridement Measurements/Treatment WC - Nurse 2 - General Ulcer CM Notes Start: 01/18/18 13:59 Freq: Status: Active Protocol: Activity Type Activity Date Activity User E-Sign Co-Sign Detail Recorded Client Recorded Date Recorded By Document 01/25/18 15:12 [id number] 01/25/18 15:15 01/25/18 15:12 Wound Center Nurse 2 #2 L Post LE -Time 15:14 -Correct Patient Yes -Correct Side, Site, Position Yes -Correct Procedure Yes -Procedure Performed Yes -Type of Procedure Debridement -Clinical Debridement Subcutaneous -Post Debridement Size (cm) - Length 2.2 -Post Debridement Size (cm) - Width 2.4 -Post Debridement Size (cm) - Depth 0.1 -Total Square Cm 5.28 -Wound/Ulcer Outcome Not Healed -Ulcer Cleansing Rinsed/ Irrigated with Saline -Foul Odor after Cleansing No -Bioengineered Tissue No -Topical Lidocaine (%) 4 -Bleeding Controlled with Pressure -Treatment Response Procedure Tolerated Well Pain Scale: 0-10 Numeric Is Patient Pain Free? Yes Wound debrided: left posterior LE Laterality: Left Type of Debridement: Excisional debridement Anesthesia Used: 4% Lidocaine Solution Depth: Down to and including healthy tissue, in the subcutaneous layer Percentage of wound debrided: 100 Instrument Used: 5mm curette Tissue Removed: yellow slough, devitalized tissue Severity: Fat Layer Exposed Amount of bleeding with debridement: Mild Bleeding Controlled with: Compression and gauze Patient tolerated procedure well Assessment/Plan Active Problems Lymphedema of both lower extremities (Chronic) 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) On anticoagulant therapy (Chronic) Assessment: lymphedema. venous ulcers of left LE. morbid obesity Plan: [place]'s wounds were evaluated and debrided today. Will change treatment to [place] and continue to use Surepress for compression. Encouraged increased protein and offloading of her posterior left leg. F/U in 1 week.
== END 2018-02-15 23:59 ==
LOC: WC 15:00
PROVIDERS: Family Provider Internal Medicine; PCP Internal Medicine; Visit Provider Family Medicine
DX: I87.332 Chronic venous hypertension (idiopathic) with ulcer and inflammation of left lower extremity (principal); I89.0 Lymphedema, not elsewhere classified; L97.822 Non-pressure chronic ulcer of other part of left lower leg with fat layer exposed
CPT/HCPCS: 11042; 99213; G0463

== ENCOUNTER 2018-03-15 15:00 | Outpatient (RCR) | payer BC, MEDICARE, SELFPAY ==
[2018-02-16 01:14] VITALS: BP 140/62; PULSE 75; RESP 18; TEMP 36.7
[2018-02-22 15:20] VITALS: BP 141/67; PULSE 72; RESP 20; TEMP 36.4
--- NOTE | 2018-02-22 18:10 | PCM.WC.PN ---
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 Status: Chronic Current Visit: Yes Code(s): I87.332 - Chronic venous hypertension (idiopathic) with ulcer and inflammation of left lower extremity; L97.929 - Non-pressure chronic ulcer of unspecified part of left lower leg with unspecified severity Type of Wound Date of Service: 02/22/18 Chief Complaint: nonhealing wound of left lower leg History of Wound: Stacey presents to the wound healing center for evaluation and treatment of lower extremity edema and nonhealing ulcers of her left lower extremity. She is a poor historian. The wounds have been present for approximately 1 month and she has a long standing history of lower extremity edema preceding the wounds but denies having any vascular testing done in the past. She is on Keflex for treatment of the wounds but has not had improvement. No wound culture has been done prior to her treatment with Keflex. She is unable to wear compression stockings due to not being able to place them. She has erythema of her left great toe but it is not painful. MELISA bandage has been being applied to her leg to keep bandages on the wounds but not for compression. She sits in her recliner with her legs hanging down frequently. She does sleep in a bed. She denies fever or chills. Progress of Wound: Stacey's wound has gotten slightly larger. She has not been seen for 3 weeks. Her medial LE remains healed. Posterior calf is being offloaded per patient. She has been having her legs wrapped with Surepress. She denies fever, chills or increased pain. - Physical Exam Vital Signs Temp Pulse Resp BP 97.5 F L 72 20 H 141/67 H 02/22/18 15:20 02/22/18 15:20 02/22/18 15:20 02/22/18 15:20 General: Alert, Oriented x3, Cooperative, No apparent distress HEENT: Atraumatic, Normocephalic Oral: Moist Mucosa Abdomen: Obese Extremities: Edema Skin: Ulcer/ Wound Wound Measurements and Assessment WC - Nurse 1 - General Ulcer Measurement Start: 02/22/18 15:20 Freq: Status: Active Protocol: Activity Type Activity Date Activity User E-Sign Co-Sign Detail Recorded Client Recorded Date Recorded By Document 02/22/18 15:20 [id number] 02/22/18 15:23 Document 02/22/18 16:24 [id number] 02/22/18 16:24 02/22/18 02/22/18 15:20 16:24 Wound Center Nurse 1 [Ulcer Assessment] #2 L Post LE -Combined with other wound No -Current Size (cm) - Length 3.0 -Current Size (cm) - Width 2.3 -Current Size (cm) - Depth 0.1 -Total Square Cm 6.90 -Date of Last Picture (Recall this 02/22/18 field) -Photo Taken Yes -Epithelialization None Present -Tunneling No -Undermining/Tunneling No -Circular Undermining No -Exudate Amt Medium (34-66%) -Exudate Type Serosanguineous -Wound Margin Distinct, Outline Attached -Granulation Amt Medium (34-66%) -Granulation Quality [place] -Slough/Fibrin Yes -Necrosis Amt Medium (34-66%) -Necrotic Tissue Type Adherent Slough -Structure Exposed None/Limited to Skin Breakdown -Texture (Gabby-wound Skin Appearance) No Abnormality Assessed -Moisture (Gabby-wound Skin Appearance No Abnormality ) Assessed -Color (Gabby-wound Skin Appearance) No Abnormality Assessed -Temperature (Gabby-wound Skin No Abnormality Appearance) (Pt Warm) -Tenderness on Palpation (Gabby-wound No Skin Appearance) -Ulcer Cleansing Rinsed/ Irrigated with Saline -Foul Odor after Cleansing No -Anesthetic Used 4% Lidocaine Solution [Edema Assessment] -Lower Limb Edema Present Yes Yes -Right Calf (cm) 52.3 -Right Ankle (cm) 27.5 -Left Calf (cm) 52.6 -Left Ankle (cm) 26.6 WC - Nurse 2 - General Ulcer CM Notes Start: 02/22/18 15:20 Freq: Status: Active Protocol: Activity Type Activity Date Activity User E-Sign Co-Sign Detail Recorded Client Recorded Date Recorded By Document 02/22/18 16:06 [id number] 02/22/18 16:10 02/22/18 16:06 Wound Center Nurse 2 [Procedure/Treatment] #2 L Post LE -Time 16:07 -Correct Patient Yes -Correct Side, Site, Position Yes -Correct Procedure Yes -Procedure Performed Yes -Type of Procedure Debridement -Clinical Debridement Subcutaneous -Post Debridement Size (cm) - Length 2.5 -Post Debridement Size (cm) - Width 2.5 -Post Debridement Size (cm) - Depth 0.1 -Total Square Cm 6.25 -Wound/Ulcer Outcome Not Healed -Ulcer Cleansing Rinsed/ Irrigated with Saline -Foul Odor after Cleansing No -Bioengineered Tissue No -Topical Lidocaine (%) 4 -Lidocaine (ml) 5 -Bleeding Controlled with NA -Treatment Response Procedure Tolerated Well [See Physician Procedure note for Specifics] Pain Scale: 0-10 Numeric [Pain] -Is Patient Pain Free? Yes Psych/Mental Status: Normal Affect, Appropriate Debridement Note Post-Debridement Measurements/Treatment WC - Nurse 2 - General Ulcer CM Notes Start: 02/22/18 15:20 Freq: Status: Active Protocol: Activity Type Activity Date Activity User E-Sign Co-Sign Detail Recorded Client Recorded Date Recorded By Document 02/22/18 16:06 ALINA [id number] 02/22/18 16:10 ALINA 02/22/18 16:06 Wound Center Nurse 2 #2 L Post LE -Time 16:07 -Correct Patient Yes -Correct Side, Site, Position Yes -Correct Procedure Yes -Procedure Performed Yes -Type of Procedure Debridement -Clinical Debridement Subcutaneous -Post Debridement Size (cm) - Length 2.5 -Post Debridement Size (cm) - Width 2.5 -Post Debridement Size (cm) - Depth 0.1 -Total Square Cm 6.25 -Wound/Ulcer Outcome Not Healed -Ulcer Cleansing Rinsed/ Irrigated with Saline -Foul Odor after Cleansing No -Bioengineered Tissue No -Topical Lidocaine (%) 4 -Lidocaine (ml) 5 -Bleeding Controlled with NA -Treatment Response Procedure Tolerated Well Pain Scale: 0-10 Numeric Is Patient Pain Free? Yes Wound debrided: left posterior LE Laterality: Left Type of Debridement: Excisional debridement Anesthesia Used: 4% Lidocaine Solution Depth: Down to and including healthy tissue, in the subcutaneous layer Percentage of wound debrided: 100 Instrument Used: 5mm curette Tissue Removed: yellow slough, devitalized tissue Severity: Fat Layer Exposed Amount of bleeding with debridement: Mild Bleeding Controlled with: Compression and gauze Patient tolerated procedure well Assessment/Plan Active Problems Lymphedema of both lower extremities (Chronic) 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) Assessment: lymphedema. venous ulcers of left LE. morbid obesity Plan: [place]'s wounds were evaluated and debrided today. Will change treatment to Aquacel Extra and continue to use Surepress for compression. Encouraged increased protein and offloading of her posterior left leg. F/U in 1 week.
[2018-03-01 16:16] VITALS: BP 137/71; PULSE 69; RESP 18; TEMP 36.9
--- NOTE | 2018-03-01 18:59 | PCM.WC.PN ---
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 Status: Chronic Current Visit: Yes Code(s): I87.332 - Chronic venous hypertension (idiopathic) with ulcer and inflammation of left lower extremity; L97.929 - Non-pressure chronic ulcer of unspecified part of left lower leg with unspecified severity Type of Wound Date of Service: 03/01/18 Chief Complaint: nonhealing wound of left lower leg History of Wound: Stacey presents to the wound healing center for evaluation and treatment of lower extremity edema and nonhealing ulcers of her left lower extremity. She is a poor historian. The wounds have been present for approximately 1 month and she has a long standing history of lower extremity edema preceding the wounds but denies having any vascular testing done in the past. She is on Keflex for treatment of the wounds but has not had improvement. No wound culture has been done prior to her treatment with Keflex. She is unable to wear compression stockings due to not being able to place them. She has erythema of her left great toe but it is not painful. MELISA bandage has been being applied to her leg to keep bandages on the wounds but not for compression. She sits in her recliner with her legs hanging down frequently. She does sleep in a bed. She denies fever or chills. Progress of Wound: Stacey's wound has not improved. Her medial LE remains healed. Posterior calf is being offloaded per patient. She has been having her legs wrapped with Surepress. She denies fever, chills or increased pain. - Physical Exam Vital Signs Temp Pulse Resp BP 98.4 F 69 18 137/71 H 03/01/18 16:16 03/01/18 16:16 03/01/18 16:16 03/01/18 16:16 General: Alert, Oriented x3, Cooperative, No apparent distress HEENT: Atraumatic, Normocephalic Oral: Moist Mucosa Abdomen: Obese Extremities: Edema Skin: Ulcer/ Wound Wound Measurements and Assessment WC - Nurse 1 - General Ulcer Measurement Start: 02/22/18 15:20 Freq: Status: Active Protocol: Activity Type Activity Date Activity User E-Sign Co-Sign Detail Recorded Client Recorded Date Recorded By Document 03/01/18 16:16 [id number] 03/01/18 16:17 03/01/18 16:16 Wound Center Nurse 1 [Ulcer Assessment] #2 L Post LE -Combined with other wound No -Current Size (cm) - Length 2.9 -Current Size (cm) - Width 3 -Current Size (cm) - Depth 0.1 -Total Square Cm 8.7 -Photo Taken No -Epithelialization Small 1-33% -Tunneling No -Undermining/Tunneling No -Circular Undermining No -Exudate Amt Medium (34-66%) -Exudate Type Serosanguineous -Wound Margin Distinct, Outline Attached -Granulation Amt Medium (34-66%) -Granulation Quality Pale [place] -Necrosis Amt Medium (34-66%) -Necrotic Tissue Type Adherent Slough -Structure Exposed None/Limited to Skin Breakdown -Moisture (Gabby-wound Skin Appearance Maceration ) Weeping -Color (Gabby-wound Skin Appearance) No Abnormality Assessed -Temperature (Gabby-wound Skin No Abnormality Appearance) (Pt Warm) -Tenderness on Palpation (Gabby-wound No Skin Appearance) -Ulcer Cleansing Wound Cleanser -Foul Odor after Cleansing No -Anesthetic Used 4% Lidocaine Solution [Edema Assessment] -Lower Limb Edema Present Yes -Left Calf (cm) 51 -Left Ankle (cm) 28 WC - Nurse 2 - General Ulcer CM Notes Start: 02/22/18 15:20 Freq: Status: Active Protocol: Activity Type Activity Date Activity User E-Sign Co-Sign Detail Recorded Client Recorded Date Recorded By Document 03/01/18 16:39 [id number] 03/01/18 16:40 03/01/18 16:39 Wound Center Nurse 2 [Procedure/Treatment] #2 L Post LE -Time 16:39 -Correct Patient Yes -Correct Side, Site, Position Yes -Correct Procedure Yes -Procedure Performed Yes -Type of Procedure Debridement -Clinical Debridement Subcutaneous -Post Debridement Size (cm) - Length 3.3 -Post Debridement Size (cm) - Width 3.5 -Post Debridement Size (cm) - Depth 0.1 -Total Square Cm 11.55 -Wound/Ulcer Outcome Not Healed -Ulcer Cleansing Rinsed/ Irrigated with Saline -Foul Odor after Cleansing No -Bioengineered Tissue No -Topical Lidocaine (%) 5 -Bleeding Controlled with Pressure -Treatment Response Procedure Tolerated Well [See Physician Procedure note for Specifics] Pain Scale: 0-10 Numeric [Pain] -Is Patient Pain Free? Yes Psych/Mental Status: Normal Affect, Appropriate Debridement Note Post-Debridement Measurements/Treatment WC - Nurse 2 - General Ulcer CM Notes Start: 02/22/18 15:20 Freq: Status: Active Protocol: Activity Type Activity Date Activity User E-Sign Co-Sign Detail Recorded Client Recorded Date Recorded By Document 02/22/18 16:06 JS [id number] 02/22/18 16:10 JS Document 03/01/18 16:39 TM [id number] 03/01/18 16:40 TM 02/22/18 03/01/18 16:06 16:39 Wound Center Nurse 2 #2 L Post LE -Time 16:07 16:39 -Correct Patient Yes Yes -Correct Side, Site, Position Yes Yes -Correct Procedure Yes Yes -Procedure Performed Yes Yes -Type of Procedure Debridement Debridement -Clinical Debridement Subcutaneous Subcutaneous -Post Debridement Size (cm) - Length 2.5 3.3 -Post Debridement Size (cm) - Width 2.5 3.5 -Post Debridement Size (cm) - Depth 0.1 0.1 -Total Square Cm 6.25 11.55 -Wound/Ulcer Outcome Not Healed Not Healed -Ulcer Cleansing Rinsed/ Rinsed/ Irrigated with Irrigated with Saline Saline -Foul Odor after Cleansing No No -Bioengineered Tissue No No -Topical Lidocaine (%) 4 5 -Lidocaine (ml) 5 -Bleeding Controlled with NA Pressure -Treatment Response Procedure Procedure Tolerated Well Tolerated Well Pain Scale: 0-10 Numeric Is Patient Pain Free? Yes Yes Wound debrided: Left posterior LE Laterality: Left Type of Debridement: Excisional debridement Anesthesia Used: 4% Lidocaine Solution Depth: Down to and including healthy tissue, in the subcutaneous layer Percentage of wound debrided: 100 Instrument Used: 5mm curette Tissue Removed: yellow slough, devitalized tissue Severity: Fat Layer Exposed Amount of bleeding with debridement: Mild Bleeding Controlled with: Compression and gauze Patient tolerated procedure well Assessment/Plan Active Problems Lymphedema of both lower extremities (Chronic) 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) Assessment: lymphedema. venous ulcers of left LE. morbid obesity Plan: [facility] wounds were evaluated and debrided today. Will change treatment to Hydrofera blue and continue to use Surepress for compression. Encouraged increased protein and offloading of her posterior left leg. F/U in 2 weeks.
[2018-03-15 15:12] VITALS: BP 135/81; PULSE 81; RESP 16; TEMP 35.9
--- NOTE | 2018-03-15 18:19 | PCM.WC.PN ---
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 Status: Chronic Current Visit: Yes Code(s): I87.332 - Chronic venous hypertension (idiopathic) with ulcer and inflammation of left lower extremity; L97.929 - Non-pressure chronic ulcer of unspecified part of left lower leg with unspecified severity Type of Wound Chief Complaint: nonhealing wound of left lower leg History of Wound: Stacey presents to the wound healing center for evaluation and treatment of lower extremity edema and nonhealing ulcers of her left lower extremity. She is a poor historian. The wounds have been present for approximately 1 month and she has a long standing history of lower extremity edema preceding the wounds but denies having any vascular testing done in the past. She is on Keflex for treatment of the wounds but has not had improvement. No wound culture has been done prior to her treatment with Keflex. She is unable to wear compression stockings due to not being able to place them. She has erythema of her left great toe but it is not painful. MELISA bandage has been being applied to her leg to keep bandages on the wounds but not for compression. She sits in her recliner with her legs hanging down frequently. She does sleep in a bed. She denies fever or chills. Progress of Wound: Stacey's wound has not improved. Her medial LE remains healed. Posterior calf is being offloaded per patient. She has been having her legs wrapped with Surepress. She denies fever, chills or increased pain. - Physical Exam Vital Signs Temp Pulse Resp BP 96.6 F L 81 16 135/81 H 03/15/18 15:12 03/15/18 15:12 03/15/18 15:12 03/15/18 15:12 General: Alert, Oriented x3, Cooperative, No apparent distress HEENT: Atraumatic, Normocephalic Oral: Moist Mucosa Abdomen: Obese Extremities: Edema Skin: Ulcer/ Wound Wound Measurements and Assessment WC - Nurse 1 - General Ulcer Measurement Start: 02/22/18 15:20 Freq: Status: Active Protocol: Activity Type Activity Date Activity User E-Sign Co-Sign Detail Recorded Client Recorded Date Recorded By Document 03/15/18 15:12 [id number] 03/15/18 15:17 03/15/18 15:12 Wound Center Nurse 1 [Ulcer Assessment] #2 L Post LE -Combined with other wound No -Current Size (cm) - Length 3.3 -Current Size (cm) - Width 2.5 -Current Size (cm) - Depth 0.2 -Total Square Cm 8.25 -Photo Taken No -Tunneling No -Undermining/Tunneling No -Circular Undermining No -Exudate Amt Small (1-33%) -Exudate Type Serous -Wound Margin Distinct, Outline Attached -Granulation Amt Medium (34-66%) -Granulation Quality Red -Slough/Fibrin Yes -Necrosis Amt Medium (34-66%) -Necrotic Tissue Type Adherent Slough -Texture (Gabby-wound Skin Appearance) Scarring -Moisture (Gabby-wound Skin Appearance Dry/Scaly ) -Color (Gabby-wound Skin Appearance) Hemosiderin Staining -Temperature (Gabby-wound Skin No Abnormality Appearance) (Pt Warm) -Tenderness on Palpation (Gabby-wound No Skin Appearance) -Ulcer Cleansing Rinsed/ Irrigated with Saline -Foul Odor after Cleansing No -Anesthetic Used 4% Lidocaine Solution [Edema Assessment] -Lower Limb Edema Present Yes -Left Calf (cm) 50 -Left Ankle (cm) 27 WC - Nurse 2 - General Ulcer CM Notes Start: 02/22/18 15:20 Freq: Status: Active Protocol: Activity Type Activity Date Activity User E-Sign Co-Sign Detail Recorded Client Recorded Date Recorded By Document 03/15/18 15:57 [id number] 03/15/18 15:58 03/15/18 15:57 Wound Center Nurse 2 [Procedure/Treatment] #2 L Post LE -Time 15:57 -Correct Patient Yes -Correct Side, Site, Position Yes -Correct Procedure Yes -Procedure Performed Yes -Type of Procedure Debridement -Clinical Debridement Subcutaneous -Post Debridement Size (cm) - Length 3.3 -Post Debridement Size (cm) - Width 2.5 -Post Debridement Size (cm) - Depth 0.1 -Total Square Cm 8.25 -Wound/Ulcer Outcome Not Healed -Ulcer Cleansing Rinsed/ Irrigated with Saline -Foul Odor after Cleansing No -Bioengineered Tissue No -Topical Lidocaine (%) 4 -Bleeding Controlled with Pressure -Treatment Response Procedure Tolerated Well [See Physician Procedure note for Specifics] Pain Scale: 0-10 Numeric [Pain] -Is Patient Pain Free? Yes Psych/Mental Status: Normal Affect, Appropriate Debridement Note Post-Debridement Measurements/Treatment WC - Nurse 2 - General Ulcer CM Notes Start: 02/22/18 15:20 Freq: Status: Active Protocol: Activity Type Activity Date Activity User E-Sign Co-Sign Detail Recorded Client Recorded Date Recorded By Document 02/22/18 16:06 [id number] 02/22/18 16:10 Document 03/01/18 16:39 [id number] 03/01/18 16:40 Document 03/15/18 15:57 [id number] 03/15/18 15:58 02/22/18 03/01/18 03/15/18 16:06 16:39 15:57 Wound Center Nurse 2 #2 L Post LE -Time 16:07 16:39 15:57 -Correct Patient Yes Yes Yes -Correct Side, Site, Position Yes Yes Yes -Correct Procedure Yes Yes Yes -Procedure Performed Yes Yes Yes -Type of Procedure Debridement Debridement Debridement -Clinical Debridement Subcutaneous Subcutaneous Subcutaneous -Post Debridement Size (cm) - Length 2.5 3.3 3.3 -Post Debridement Size (cm) - Width 2.5 3.5 2.5 -Post Debridement Size (cm) - Depth 0.1 0.1 0.1 -Total Square Cm 6.25 11.55 8.25 -Wound/Ulcer Outcome Not Healed Not Healed Not Healed -Ulcer Cleansing Rinsed/ Rinsed/ Rinsed/ Irrigated with Irrigated with Irrigated with Saline Saline Saline -Foul Odor after Cleansing No No No -Bioengineered Tissue No No No -Topical Lidocaine (%) 4 5 4 -Lidocaine (ml) 5 -Bleeding Controlled with NA Pressure Pressure -Treatment Response Procedure Procedure Procedure Tolerated Well Tolerated Well Tolerated Well Pain Scale: 0-10 Numeric Is Patient Pain Free? Yes Yes Yes Wound debrided: left posterior LE Laterality: Left Type of Debridement: Excisional debridement Anesthesia Used: 4% Lidocaine Solution Depth: Down to and including healthy tissue, in the subcutaneous layer Percentage of wound debrided: 100 Instrument Used: 5mm curette Tissue Removed: yellow slough, devitalized tissue Severity: Fat Layer Exposed Amount of bleeding with debridement: Mild Bleeding Controlled with: Compression and gauze Patient tolerated procedure well Assessment/Plan Active Problems Lymphedema of both lower extremities (Chronic) 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) Assessment: lymphedema. venous ulcers of left LE. morbid obesity Plan: [place]'s wounds were evaluated and debrided today. Will continue treatment with Hydrofera blue and continue to use Surepress for compression. Encouraged increased protein and offloading of her posterior left leg. F/U in 2 weeks.
== END 2018-03-17 23:59 ==
LOC: WC 15:00
PROVIDERS: Family Provider Internal Medicine; PCP Internal Medicine; Visit Provider Family Medicine
DX: I87.332 Chronic venous hypertension (idiopathic) with ulcer and inflammation of left lower extremity (principal); L97.822 Non-pressure chronic ulcer of other part of left lower leg with fat layer exposed; E66.01 Morbid (severe) obesity due to excess calories; Z68.41 Body mass index [BMI] 40.0-44.9, adult; Z71.3 Dietary counseling and surveillance; I89.0 Lymphedema, not elsewhere classified
CPT/HCPCS: 11042; 29581; 87070; 87075; 87077; 87186; 87205

== ENCOUNTER 2018-04-12 12:30 | Outpatient (RCR) | payer BC, MEDICARE, SELFPAY ==
[2018-03-18 00:57] VITALS: BP 135/81; PULSE 81; RESP 16; TEMP 35.9
[2018-04-05 14:34] VITALS: BP 143/69; PULSE 79; RESP 20; TEMP 36.4
--- NOTE | 2018-04-05 18:10 | PCM.WC.PN ---
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 Status: Chronic Current Visit: Yes Code(s): I87.332 - Chronic venous hypertension (idiopathic) with ulcer and inflammation of left lower extremity; L97.929 - Non-pressure chronic ulcer of unspecified part of left lower leg with unspecified severity (3) Chronic kidney disease, stage III (moderate) Status: Chronic Current Visit: Yes Code(s): N18.3 - Chronic kidney disease, stage 3 (moderate) (4) On anticoagulant therapy Status: Chronic Current Visit: Yes Code(s): Z79.01 - [facility] (current) use of anticoagulants Type of Wound Date of Service: 04/05/18 Chief Complaint: nonhealing ulcer of left lower leg History of Wound: Stacey presents to the wound healing center for evaluation and treatment of lower extremity edema and nonhealing ulcers of her left lower extremity. She is a poor historian. The wounds have been present for approximately 1 month and she has a long standing history of lower extremity edema preceding the wounds but denies having any vascular testing done in the past. She is on Keflex for treatment of the wounds but has not had improvement. No wound culture has been done prior to her treatment with Keflex. She is unable to wear compression stockings due to not being able to place them. She has erythema of her left great toe but it is not painful. MELISA bandage has been being applied to her leg to keep bandages on the wounds but not for compression. She sits in her recliner with her legs hanging down frequently. She does sleep in a bed. She denies fever or chills. Progress of Wound: Stacey's ulcer/wound has not improved. Her medial LE remains healed. Posterior calf is being offloaded per patient. She has been having her legs wrapped with Surepress but still appear very edematous. She denies fever, chills or increased pain. She did not have vascular testing completed. Scheduled previously but she was hospitalized and it was cancelled and not rescheduled. - Physical Exam Vital Signs Temp Pulse Resp BP 97.5 F L 79 20 H 143/69 H 04/05/18 14:34 04/05/18 14:34 04/05/18 14:34 04/05/18 14:34 General: Alert, Oriented x3, Cooperative, No apparent distress HEENT: Atraumatic, Normocephalic Oral: Moist Mucosa Abdomen: Obese Extremities: Edema Skin: Ulcer/ Wound Wound Measurements and Assessment WC - Nurse 1 - General Ulcer Measurement Start: 04/02/18 16:41 Freq: Status: Active Protocol: Activity Type Activity Date Activity User E-Sign Co-Sign Detail Recorded Client Recorded Date Recorded By Document 04/05/18 14:34 DL [id number] 04/05/18 14:46 DL 04/05/18 14:34 Wound Center Nurse 1 [Ulcer Assessment] #2 L Post LE -Current Size (cm) - Length 2.4 -Current Size (cm) - Width 2.5 -Current Size (cm) - Depth 0.2 -Total Square Cm 6.00 -Photo Taken No -Exudate Amt Large (67-100%) -Exudate Type Serosanguineous -Wound Margin Thickened & Rolled Under -Granulation Amt Medium (34-66%) -Granulation Quality Pale [place] -Necrosis Amt Medium (34-66%) -Necrotic Tissue Type Adherent Slough -Structure Exposed N/A -Texture (Gabby-wound Skin Appearance) Scarring -Moisture (Gabby-wound Skin Appearance Maceration ) -Color (Gabby-wound Skin Appearance) Erythema Hemosiderin Staining Rubor -Temperature (Gabby-wound Skin Cool/Cold Appearance) -Tenderness on Palpation (Gabby-wound No Skin Appearance) -Ulcer Cleansing Wound Cleanser -Foul Odor after Cleansing No -Anesthetic Used 4% Lidocaine Solution [Edema Assessment] -Right Calf (cm) 48.5 -Right Ankle (cm) 28 -Left Calf (cm) 50 -Left Ankle (cm) 28.5 WC - Nurse 2 - General Ulcer CM Notes Start: 04/02/18 16:41 Freq: Status: Active Protocol: Activity Type Activity Date Activity User E-Sign Co-Sign Detail Recorded Client Recorded Date Recorded By Document 04/05/18 14:57 CS [id number] 04/05/18 14:58 CS 04/05/18 14:57 Wound Center Nurse 2 [Procedure/Treatment] #2 L Post LE -Time 14:57 -Correct Patient Yes -Correct Side, Site, Position Yes -Correct Procedure Yes -Procedure Performed Yes -Type of Procedure Debridement -Clinical Debridement Subcutaneous -Post Debridement Size (cm) - Length 2.9 -Post Debridement Size (cm) - Width 2.5 -Post Debridement Size (cm) - Depth 0.1 -Total Square Cm 7.25 -Wound/Ulcer Outcome Not Healed -Ulcer Cleansing Not Cleansed -Foul Odor after Cleansing No -Bioengineered Tissue No -Bleeding Controlled with NA -Treatment Response Procedure Tolerated Well [See Physician Procedure note for Specifics] Pain Scale: 0-10 Numeric [Pain] -Is Patient Pain Free? Yes Psych/Mental Status: Normal Affect, Appropriate Debridement Note Post-Debridement Measurements/Treatment WC - Nurse 2 - General Ulcer CM Notes Start: 04/02/18 16:41 Freq: Status: Active Protocol: Activity Type Activity Date Activity User E-Sign Co-Sign Detail Recorded Client Recorded Date Recorded By Document 04/05/18 14:57 [id number] 04/05/18 14:58 04/05/18 14:57 Wound Center Nurse 2 #2 L Post LE -Time 14:57 -Correct Patient Yes -Correct Side, Site, Position Yes -Correct Procedure Yes -Procedure Performed Yes -Type of Procedure Debridement -Clinical Debridement Subcutaneous -Post Debridement Size (cm) - Length 2.9 -Post Debridement Size (cm) - Width 2.5 -Post Debridement Size (cm) - Depth 0.1 -Total Square Cm 7.25 -Wound/Ulcer Outcome Not Healed -Ulcer Cleansing Not Cleansed -Foul Odor after Cleansing No -Bioengineered Tissue No -Bleeding Controlled with NA -Treatment Response Procedure Tolerated Well Pain Scale: 0-10 Numeric Is Patient Pain Free? Yes Wound debrided: left posterior LE Laterality: Left Type of Debridement: Excisional debridement Anesthesia Used: 4% Lidocaine Solution Depth: Down to and including healthy tissue, in the subcutaneous layer Percentage of wound debrided: 100 Instrument Used: 7mm curette Tissue Removed: yellow slough, devitalized tissue Severity: Fat Layer Exposed Amount of bleeding with debridement: Mild Bleeding Controlled with: Compression and gauze Patient tolerated procedure well Assessment/Plan Active Problems Lymphedema of both lower extremities (Chronic) 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) Chronic kidney disease, stage III (moderate) (Chronic) On anticoagulant therapy (Chronic) Assessment: lymphedema. venous ulcers of left LE. morbid obesity Plan: [place]'s wounds were evaluated and debrided today. Will continue treatment with Hydrofera blue but will incraese compression with 3M compression wrap applied lightly. Will have this changed on Sunday. IF her SNF is unable to change then she will come here for a nurse visit to have her 3 M dressing changed. Discussed ongoing treatment of her chronic venous insufficiency and lymphedema with Circaids and these were demonstrated to her. She feels that this may be a good option for treatment for her. Will send order for Circaids with measurements after treatment with 3M x 1 week. Encouraged increased protein intake and offloading of her posterior left leg as well as elevation of legs and avoiding idle standing. F/U in 1 week.
--- NOTE | 2018-04-05 18:17 | PN.PCM_ITS ---
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 Status: Chronic Current Visit: Yes Code(s): I87.332 - Chronic venous hypertension (idiopathic) with ulcer and inflammation of left lower extremity; L97.929 - Non-pressure chronic ulcer of unspecified part of left lower leg with unspecified severity (3) Chronic kidney disease, stage III (moderate) Status: Chronic Current Visit: Yes Code(s): N18.3 - Chronic kidney disease, stage 3 (moderate) (4) On anticoagulant therapy Status: Chronic Current Visit: Yes Code(s): Z79.01 - [facility] (current[facility] use of anticoagulants Type of Wound Date of Service: 04/05/18 Chief Complaint: nonhealing ulcer of left lower leg History of Wound: Stacey presents to the wound healing center for evaluation and treatment of lower extremity edema and nonhealing ulcers of her left lower extremity. She is a poor historian. The wounds have been present for approximately 1 month and she has a long standing history of lower extremity edema preceding the wounds but denies having any vascular testing done in the past. She is on Keflex for treatment of the wounds but has not had improvement. No wound culture has been done prior to her treatment with Keflex. She is unable to wear compression stockings due to not being able to place them. She has erythema of her left great toe but it is not painful. MELISA bandage has been being applied to her leg to keep bandages on the wounds but not for compression. She sits in her recliner with her legs hanging down frequently. She does sleep in a bed. She denies fever or chills. Progress of Wound: Stacey's ulcer/wound has not improved. Her medial LE remains healed. Posterior calf is being offloaded per patient. She has been having her legs wrapped with Surepress but still appear very edematous. She denies fever, chills or increased pain. She did not have vascular testing completed. Scheduled previously but she was hospitalized and it was cancelled and not rescheduled. - Physical Exam Vital Signs Temp Pulse Resp BP 97.5 F L 79 20 H 143/69 H 04/05/18 14:34 04/05/18 14:34 04/05/18 14:34 04/05/18 14:34 General: Alert, Oriented x3, Cooperative, No apparent distress HEENT: Atraumatic, Normocephalic Oral: Moist Mucosa Abdomen: Obese Extremities: Edema Skin: Ulcer/ Wound Wound Measurements and Assessment WC - Nurse 1 - General Ulcer Measurement Start: 04/02/18 16:41 Freq: Status: Active Protocol: Activity Type Activity Date Activity User E-Sign Co-Sign Detail Recorded Client Recorded Date Recorded By Document 04/05/18 14:34 DL [id number] 04/05/18 14:46 DL 04/05/18 14:34 Wound Center Nurse 1 [Ulcer Assessment] #2 L Post LE -Current Size (cm) - Length 2.4 -Current Size (cm) - Width 2.5 -Current Size (cm) - Depth 0.2 -Total Square Cm 6.00 -Photo Taken No -Exudate Amt Large (67-100%) -Exudate Type Serosanguineous -Wound Margin Thickened & Rolled Under -Granulation Amt Medium (34-66%) -Granulation Quality Pale [place] -Necrosis Amt Medium (34-66%) -Necrotic Tissue Type Adherent Slough -Structure Exposed N/A -Texture (Gabby-wound Skin Appearance) Scarring -Moisture (Gabby-wound Skin Appearance Maceration ) -Color (Gabby-wound Skin Appearance) Erythema Hemosiderin Staining Rubor -Temperature (Gabby-wound Skin Cool/Cold Appearance) -Tenderness on Palpation (Gabby-wound No Skin Appearance) -Ulcer Cleansing Wound Cleanser -Foul Odor after Cleansing No -Anesthetic Used 4% Lidocaine Solution [Edema Assessment] -Right Calf (cm) 48.5 -Right Ankle (cm) 28 -Left Calf (cm) 50 -Left Ankle (cm) 28.5 WC - Nurse 2 - General Ulcer CM Notes Start: 04/02/18 16:41 Freq: Status: Active Protocol: Activity Type Activity Date Activity User E-Sign Co-Sign Detail Recorded Client Recorded Date Recorded By Document 04/05/18 14:57 CS [id number] 04/05/18 14:58 CS 04/05/18 14:57 Wound Center Nurse 2 [Procedure/Treatment] #2 L Post LE -Time 14:57 -Correct Patient Yes -Correct Side, Site, Position Yes -Correct Procedure Yes -Procedure Performed Yes -Type of Procedure Debridement -Clinical Debridement Subcutaneous -Post Debridement Size (cm) - Length 2.9 -Post Debridement Size (cm) - Width 2.5 -Post Debridement Size (cm) - Depth 0.1 -Total Square Cm 7.25 -Wound/Ulcer Outcome Not Healed -Ulcer Cleansing Not Cleansed -Foul Odor after Cleansing No -Bioengineered Tissue No -Bleeding Controlled with NA -Treatment Response Procedure Tolerated Well [See Physician Procedure note for Specifics] Pain Scale: 0-10 Numeric [Pain] -Is Patient Pain Free? Yes Psych/Mental Status: Normal Affect, Appropriate Debridement Note Post-Debridement Measurements/Treatment WC - Nurse 2 - General Ulcer CM Notes Start: 04/02/18 16:41 Freq: Status: Active Protocol: Activity Type Activity Date Activity User E-Sign Co-Sign Detail Recorded Client Recorded Date Recorded By Document 04/05/18 14:57 [id number] 04/05/18 14:58 04/05/18 14:57 Wound Center Nurse 2 #2 L Post LE -Time 14:57 -Correct Patient Yes -Correct Side, Site, Position Yes -Correct Procedure Yes -Procedure Performed Yes -Type of Procedure Debridement -Clinical Debridement Subcutaneous -Post Debridement Size (cm) - Length 2.9 -Post Debridement Size (cm) - Width 2.5 -Post Debridement Size (cm) - Depth 0.1 -Total Square Cm 7.25 -Wound/Ulcer Outcome Not Healed -Ulcer Cleansing Not Cleansed -Foul Odor after Cleansing No -Bioengineered Tissue No -Bleeding Controlled with NA -Treatment Response Procedure Tolerated Well Pain Scale: 0-10 Numeric Is Patient Pain Free? Yes Wound debrided: left posterior LE Laterality: Left Type of Debridement: Excisional debridement Anesthesia Used: 4% Lidocaine Solution Depth: Down to and including healthy tissue, in the subcutaneous layer Percentage of wound debrided: 100 Instrument Used: 7mm curette Tissue Removed: yellow slough, devitalized tissue Severity: Fat Layer Exposed Amount of bleeding with debridement: Mild Bleeding Controlled with: Compression and gauze Patient tolerated procedure well Assessment/Plan Active Problems Lymphedema of both lower extremities (Chronic) 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) Chronic kidney disease, stage III (moderate) (Chronic) On anticoagulant therapy (Chronic) Assessment: lymphedema. venous ulcers of left LE. morbid obesity Plan: [place]'s wounds were evaluated and debrided today. Will continue treatment with Hydrofera blue but will incraese compression with 3M compression wrap applied lightly. Will have this changed on Sunday. IF her SNF is unable to change then she will come here for a nurse visit to have her 3 M dressing change d. Discussed ongoing treatment of her chronic venous insufficiency and lymphedema with Circaids and these were demonstrated to her. She feels that this may be a good option for treatment for her. Will send order for Circaids with measurements after treatment with 3M x 1 week. Encouraged increased protein intake and offloading of her posterior left leg as well as elevation of legs and avoiding idle standing. F/U in 1 week.
[2018-04-12 12:38] VITALS: BP 104/48; PULSE 84; RESP 16; TEMP 36.1
--- NOTE | 2018-04-12 17:15 | PCM.WC.PN ---
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 Status: Chronic Current Visit: Yes Code(s): I87.332 - Chronic venous hypertension (idiopathic) with ulcer and inflammation of left lower extremity; L97.929 - Non-pressure chronic ulcer of unspecified part of left lower leg with unspecified severity (3) Chronic kidney disease, stage III (moderate) Status: Chronic Current Visit: Yes Code(s): N18.3 - Chronic kidney disease, stage 3 (moderate) (4) On anticoagulant therapy Status: Chronic Current Visit: Yes Code(s): Z79.01 - [facility] (current) use of anticoagulants Type of Wound Date of Service: 04/12/18 Chief Complaint: nonhealing ulcer of left lower leg History of Wound: Stacey presents to the wound healing center for evaluation and treatment of lower extremity edema and nonhealing ulcers of her left lower extremity. She is a poor historian. The wounds have been present for approximately 1 month and she has a long standing history of lower extremity edema preceding the wounds but denies having any vascular testing done in the past. She was on Keflex for treatment of the wounds but has not had improvement. No wound culture had been done prior to her treatment with Keflex. She is unable to wear compression stockings due to not being able to place them. She has erythema of her left great toe but it is not painful. MELISA bandage has been being applied to her leg to keep bandages on the wounds but not for compression. She sits in her recliner with her legs hanging down frequently. She does sleep in a bed. She denies fever or chills. Progress of Wound: Stacey's ulcer/wound has not improved. Her medial LE remains healed. Posterior calf is being offloaded per patient. She has been having her legs wrapped with 3M compression but still appear very edematous. She denies fever, chills or increased pain. She did not have vascular testing completed. Scheduled previously but she was hospitalized and it was cancelled and not rescheduled. This was reordered but she has not had this done yet. She states that she can't tolerate the 3M on her right leg. She states that it is too painful. - Physical Exam Vital Signs Temp Pulse Resp BP 96.9 F L 84 16 104/48 L 04/12/18 12:38 04/12/18 12:38 04/12/18 12:38 04/12/18 12:38 General: Alert, Oriented x3, Cooperative, No apparent distress HEENT: Atraumatic, Normocephalic Oral: Moist Mucosa Abdomen: Soft, Non Tender, Obese Extremities: Edema Skin: Ulcer/ Wound Wound Measurements and Assessment WC - Nurse 1 - General Ulcer Measurement Start: 04/02/18 16:41 Freq: Status: Active Protocol: Activity Type Activity Date Activity User E-Sign Co-Sign Detail Recorded Client Recorded Date Recorded By Document 04/12/18 12:38 [facility] [id number] 04/12/18 12:49 [facility] 04/12/18 12:38 Wound Center Nurse 1 [Ulcer Assessment] #2 L Post LE -Combined with other wound No -Current Size (cm) - Length 2.1 -Current Size (cm) - Width 2.4 -Current Size (cm) - Depth 0.2 -Total Square Cm 5.04 -Photo Taken No -Epithelialization None Present -Tunneling No -Undermining/Tunneling No -Circular Undermining No -Exudate Amt Medium (34-66%) -Exudate Type Serosanguineous -Wound Margin Distinct, Outline Attached -Granulation Amt Small (1-33%) -Granulation Quality Red -Slough/Fibrin Yes -Necrosis Amt Large (67-100%) -Necrotic Tissue Type Adherent Slough -Texture (Gabby-wound Skin Appearance) Scarring -Moisture (Gabby-wound Skin Appearance Weeping ) Dry/Scaly -Color (Gabby-wound Skin Appearance) Hemosiderin Staining -Temperature (Gabby-wound Skin No Abnormality Appearance) (Pt Warm) -Tenderness on Palpation (Gabby-wound No Skin Appearance) -Ulcer Cleansing Wound Cleanser -Foul Odor after Cleansing No -Anesthetic Used 4% Lidocaine Solution [Edema Assessment] -Lower Limb Edema Present Yes -Right Calf (cm) 46.6 -Right Ankle (cm) 28 -Left Calf (cm) 50.4 -Left Ankle (cm) 30 WC - Nurse 2 - General Ulcer CM Notes Start: 04/02/18 16:41 Freq: Status: Active Protocol: Activity Type Activity Date Activity User E-Sign Co-Sign Detail Recorded Client Recorded Date Recorded By Document 04/12/18 13:20 MW [id number] 04/12/18 13:21 MW 04/12/18 13:20 Wound Center Nurse 2 [Procedure/Treatment] #2 L Post LE -Time 13:20 -Correct Patient Yes -Correct Side, Site, Position Yes -Correct Procedure Yes -Procedure Performed Yes -Type of Procedure Debridement -Clinical Debridement Subcutaneous -Post Debridement Size (cm) - Length 3.0 -Post Debridement Size (cm) - Width 2.5 -Post Debridement Size (cm) - Depth 0.1 -Total Square Cm 7.50 -Wound/Ulcer Outcome Not Healed -Ulcer Cleansing Rinsed/ Irrigated with Saline -Foul Odor after Cleansing No -Bioengineered Tissue No -Bleeding Controlled with Pressure -Treatment Response Procedure Tolerated Well [See Physician Procedure note for Specifics] Pain Scale: 0-10 Numeric [Pain] -Is Patient Pain Free? Yes Psych/Mental Status: Normal Affect, Appropriate Debridement Note Post-Debridement Measurements/Treatment WC - Nurse 2 - General Ulcer CM Notes Start: 04/02/18 16:41 Freq: Status: Active Protocol: Activity Type Activity Date Activity User E-Sign Co-Sign Detail Recorded Client Recorded Date Recorded By Document 04/05/18 14:57 CS [id number] 04/05/18 14:58 CS Document 04/12/18 13:20 MW [id number] 04/12/18 13:21 MW 04/05/18 04/12/18 14:57 13:20 Wound Center Nurse 2 #2 L Post LE -Time 14:57 13:20 -Correct Patient Yes Yes -Correct Side, Site, Position Yes Yes -Correct Procedure Yes Yes -Procedure Performed Yes Yes -Type of Procedure Debridement Debridement -Clinical Debridement Subcutaneous Subcutaneous -Post Debridement Size (cm) - Length 2.9 3.0 -Post Debridement Size (cm) - Width 2.5 2.5 -Post Debridement Size (cm) - Depth 0.1 0.1 -Total Square Cm 7.25 7.50 -Wound/Ulcer Outcome Not Healed Not Healed -Ulcer Cleansing Not Cleansed Rinsed/ Irrigated with Saline -Foul Odor after Cleansing No No -Bioengineered Tissue No No -Bleeding Controlled with NA Pressure -Treatment Response Procedure Procedure Tolerated Well Tolerated Well Pain Scale: 0-10 Numeric Is Patient Pain Free? Yes Yes Wound debrided: left posterior LE Laterality: Left Type of Debridement: Excisional debridement Anesthesia Used: 4% Lidocaine Solution Depth: Down to and including healthy tissue, in the subcutaneous layer Percentage of wound debrided: 100 Instrument Used: 5mm curette Tissue Removed: devitalized tissue, yellow slough Severity: Fat Layer Exposed Amount of bleeding with debridement: Mild Bleeding Controlled with: Compression and gauze Patient tolerated procedure well Assessment/Plan Active Problems Lymphedema of both lower extremities (Chronic) 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) Chronic kidney disease, stage III (moderate) (Chronic) On anticoagulant therapy (Chronic) Assessment: lymphedema. venous ulcers of left LE. morbid obesity Plan: Stacey's wounds were evaluated and debrided today. Will continue treatment with Hydrofera blue but will increase compression with 3M compression wrap applied lightly. Will have her keep on for the entire week since she was able to tolerate it this week. Discussed ongoing treatment of her chronic venous insufficiency and lymphedema with Circaids or Farrow wraps and these were demonstrated to her. She feels that this may be a good option for treatment for her. Will send order for Circaids/Farrow wraps. Encouraged increased protein intake and offloading of her posterior left leg as well as elevation of legs and avoiding idle standing. F/U in 1 week.
--- NOTE | 2018-04-12 17:19 | PN.PCM_ITS ---
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 Status: Chronic Current Visit: Yes Code(s): I87.332 - Chronic venous hypertension (idiopathic) with ulcer and inflammation of left lower extremity; L97.929 - Non-pressure chronic ulcer of unspecified part of left lower leg with unspecified severity (3) Chronic kidney disease, stage III (moderate) Status: Chronic Current Visit: Yes Code(s): N18.3 - Chronic kidney disease, stage 3 (moderate) (4) On anticoagulant therapy Status: Chronic Current Visit: Yes Code(s): Z79.01 - [facility] (current) use of anticoagulants Type of Wound Date of Service: 04/12/18 Chief Complaint: nonhealing ulcer of left lower leg History of Wound: Stacey presents to the wound healing center for evaluation and treatment of lower extremity edema and nonhealing ulcers of her left lower extremity. She is a poor historian. The wounds have been present for approximately 1 month and she has a long standing history of lower extremity edema preceding the wounds but denies having any vascular testing done in the past. She was on Keflex for treatment of the wounds but has not had improvement. No wound culture had been done prior to her treatment with Keflex. She is unable to wear compression stockings due to not being able to place them. She has erythema of her left great toe but it is not painful. MELISA bandage has been being applied to her leg to keep bandages on the wounds but not for compression. She sits in her recliner with her legs hanging down frequently. She does sleep in a bed. She denies fever or chills. Progress of Wound: Stacey's ulcer/wound has not improved. Her medial LE remains healed. Posterior calf is being offloaded per patient. She has been having her legs wrapped with 3M compression but still appear very edematous. She denies fever, chills or increased pain. She did not have vascular testing completed. Scheduled previously but she was hospitalized and it was cancelled and not rescheduled. This was reordered but she has not had this done yet. She states that she can't tolerate the 3M on her right leg. She states that it is too painful. - Physical Exam Vital Signs Temp Pulse Resp BP 96.9 F L 84 16 104/48 L 04/12/18 12:38 04/12/18 12:38 04/12/18 12:38 04/12/18 12:38 General: Alert, Oriented x3, Cooperative, No apparent distress HEENT: Atraumatic, Normocephalic Oral: Moist Mucosa Abdomen: Soft, Non Tender, Obese Extremities: Edema Skin: Ulcer/ Wound Wound Measurements and Assessment WC - Nurse 1 - General Ulcer Measurement Start: 04/02/18 16:41 Freq: Status: Active Protocol: Activity Type Activity Date Activity User E-Sign Co-Sign Detail Recorded Client Recorded Date Recorded By Document 04/12/18 12:38 [facility] [id number] 04/12/18 12:49 [facility] 04/12/18 12:38 Wound Center Nurse 1 [Ulcer Assessment] #2 L Post LE -Combined with other wound No -Current Size (cm) - Length 2.1 -Current Size (cm) - Width 2.4 -Current Size (cm) - Depth 0.2 -Total Square Cm 5.04 -Photo Taken No -Epithelialization None Present -Tunneling No -Undermining/Tunneling No -Circular Undermining No -Exudate Amt Medium (34-66%) -Exudate Type Serosanguineous -Wound Margin Distinct, Outline Attached -Granulation Amt Small (1-33%) -Granulation Quality Red -Slough/Fibrin Yes -Necrosis Amt Large (67-100%) -Necrotic Tissue Type Adherent Slough -Texture (Gabby-wound Skin Appearance) Scarring -Moisture (Gabby-wound Skin Appearance Weeping ) Dry/Scaly -Color (Gabby-wound Skin Appearance) Hemosiderin Staining -Temperature (Gabby-wound Skin No Abnormality Appearance) (Pt Warm) -Tenderness on Palpation (Gabby-wound No Skin Appearance) -Ulcer Cleansing Wound Cleanser -Foul Odor after Cleansing No -Anesthetic Used 4% Lidocaine Solution [Edema Assessment] -Lower Limb Edema Present Yes -Right Calf (cm) 46.6 -Right Ankle (cm) 28 -Left Calf (cm) 50.4 -Left Ankle (cm) 30 WC - Nurse 2 - General Ulcer CM Notes Start: 04/02/18 16:41 Freq: Status: Active Protocol: Activity Type Activity Date Activity User E-Sign Co-Sign Detail Recorded Client Recorded Date Recorded By Document 04/12/18 13:20 MW [id number] 04/12/18 13:21 MW 04/12/18 13:20 Wound Center Nurse 2 [Procedure/Treatment] #2 L Post LE -Time 13:20 -Correct Patient Yes -Correct Side, Site, Position Yes -Correct Procedure Yes -Procedure Performed Yes -Type of Procedure Debridement -Clinical Debridement Subcutaneous -Post Debridement Size (cm) - Length 3.0 -Post Debridement Size (cm) - Width 2.5 -Post Debridement Size (cm) - Depth 0.1 -Total Square Cm 7.50 -Wound/Ulcer Outcome Not Healed -Ulcer Cleansing Rinsed/ Irrigated with Saline -Foul Odor after Cleansing No -Bioengineered Tissue No -Bleeding Controlled with Pressure -Treatment Response Procedure Tolerated Well [See Physician Procedure note for Specifics] Pain Scale: 0-10 Numeric [Pain] -Is Patient Pain Free? Yes Psych/Mental Status: Normal Affect, Appropriate Debridement Note Post-Debridement Measurements/Treatment WC - Nurse 2 - General Ulcer CM Notes Start: 04/02/18 16:41 Freq: Status: Active Protocol: Activity Type Activity Date Activity User E-Sign Co-Sign Detail Recorded Client Recorded Date Recorded By Document 04/05/18 14:57 CS [id number] 04/05/18 14:58 CS Document 04/12/18 13:20 MW [id number] 04/12/18 13:21 MW 04/05/18 04/12/18 14:57 13:20 Wound Center Nurse 2 #2 L Post LE -Time 14:57 13:20 -Correct Patient Yes Yes -Correct Side, Site, Position Yes Yes -Correct Procedure Yes Yes -Procedure Performed Yes Yes -Type of Procedure Debridement Debridement -Clinical Debridement Subcutaneous Subcutaneous -Post Debridement Size (cm) - Length 2.9 3.0 -Post Debridement Size (cm) - Width 2.5 2.5 -Post Debridement Size (cm) - Depth 0.1 0.1 -Total Square Cm 7.25 7.50 -Wound/Ulcer Outcome Not Healed Not Healed -Ulcer Cleansing Not Cleansed Rinsed/ Irrigated with Saline -Foul Odor after Cleansing No No -Bioengineered Tissue No No -Bleeding Controlled with NA Pressure -Treatment Response Procedure Procedure Tolerated Well Tolerated Well Pain Scale: 0-10 Numeric Is Patient Pain Free? Yes Yes Wound debrided: left posterior LE Laterality: Left Type of Debridement: Excisional debridement Anesthesia Used: 4% Lidocaine Solution Depth: Down to and including healthy tissue, in the subcutaneous layer Percentage of wound debrided: 100 Instrument Used: 5mm curette Tissue Removed: devitalized tissue, yellow slough Severity: Fat Layer Exposed Amount of bleeding with debridement: Mild Bleeding Controlled with: Compression and gauze Patient tolerated procedure well Assessment/Plan Active Problems Lymphedema of both lower extremities (Chronic) 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) Chronic kidney disease, stage III (moderate) (Chronic) On anticoagulant therapy (Chronic) Assessment: lymphedema. venous ulcers of left LE. morbid obesity Plan: Stacey's wounds were evaluated and debrided today. Will continue treatment with Hydrofera blue but will increase compression with 3M compression wrap applied lightly. Will have her keep on for the entire week since she was able to tolerate it this week. Discussed ongoing treatment of her chronic venous insufficiency and lymphedema with Circaids or Farrow wraps and these were demonstrated to her. She feels that this may be a good option for treatment for her. Will send order for Circaids/Farrow wraps. Encouraged increased protein intake and offloading of her posterior left leg as well as elevation of legs and avoiding idle standing. F/U in 1 week.
== END 2018-04-17 23:59 ==
LOC: WC 12:30
PROVIDERS: Family Provider Internal Medicine; PCP Internal Medicine; Visit Provider Family Medicine
DX: I87.332 Chronic venous hypertension (idiopathic) with ulcer and inflammation of left lower extremity (principal); L97.822 Non-pressure chronic ulcer of other part of left lower leg with fat layer exposed; I89.0 Lymphedema, not elsewhere classified; Z79.01 Long term (current) use of anticoagulants; N18.3 Chronic kidney disease, stage 3 (moderate); R60.0 Localized edema; E66.01 Morbid (severe) obesity due to excess calories; Z68.41 Body mass index [BMI] 40.0-44.9, adult; Z71.3 Dietary counseling and surveillance
CPT/HCPCS: 11042; 29581

== ENCOUNTER 2018-04-13 11:37 | Inpatient (IN) | payer MEDICARE, SELFPAY ==
[2018-04-13] VITALS (16 sets, daily range): BP systolic 92–110; BP diastolic 55–90; PULSE 79–101; RESP 12–35; TEMP 36.7–37.8; O2SAT 90–98; BMI 49.6; BMI 40.4
--- NOTE | 2018-04-13 12:41 | EKG12_ITS ---
Test Reason : SOB Blood Pressure : / mmHG Vent. Rate : 094 BPM Atrial Rate : 102 BPM P-R Int : 000 ms QRS Dur : 084 ms QT Int : 380 ms P-R-T Axes : 000 079 061 degrees QTc Int : 475 ms Normal sinus rhythm Low voltage QRS Nonspecific ST abnormality Abnormal ECG Confirmed by CASSIE FISHER, REBECA ([id number]), content editor REGINA LINTON ([id number] on 04/22/2018 3:59:56 PM Referred By: HERSON Confirmed By:REBECA MATTHEWS MD
--- NOTE | 2018-04-13 12:55 | RAD_ITS ---
STUDY: X-RAY CHEST REASON FOR EXAM: Female, 82 years old. Shortness of breath. TECHNIQUE: Single AP portable view of the chest. COMPARISON: 02/08/2017. FINDINGS: There are prominent markings in the perihilar and lower lung zones bilaterally worse than the previous exam by hypoventilatory changes. No focal infiltrate is seen. There is no demonstrated pleural abnormality. Sternal cerclage wires are present from a prior sternotomy. There is a prostatic valve likely mitral. Normal mediastinum and alva. Normal visualized pulmonary arteries. There is atherosclerotic tortuosity of the aortic arch and descending thoracic aorta. The thoracic spine is obscured. There is degenerative osteoarthritis of the bilateral shoulders. There is no demonstrated abnormality of the visualized soft tissue structures of the upper abdomen. RAD/Chest 1 View (Portable) IMPRESSION: 1. Prominent markings consistent with mild pulmonary venous congestion. 2. Status post mediastinotomy and valve replacement. Electronically Signed: Elijah Milner MD at 13:23 EDT Tel , Service support ,
--- NOTE | 2018-04-13 13:05 | ED.RN ---
BIPAP: 05/23, RATE 14 AND DECREASED TO 35% BY RT
[2018-04-13 13:16] LABS: Prothrombin Time (Protime)PT. 39.5 SECONDS (11.7-14.9)
[2018-04-13 13:17] LABS: Absolute Lymphocyte Count 0.55 X10^3/ul (0.83-4.51); Absolute Neutrophil Count 26.5 X10^3/uL (2.0-7.7); Basophil# 0.01 X10^3/uL; Hematocrit 37.9 % (37-47); Hemoglobin 12.1 g/dl (12.0-15.0); Lymphocyte # 0.55 X10^3/ul (4.0); Lymphocyte % 1.9 % (19-41); Mean Corp Hgb Conc 31.9 g/gl (32-36); Mean Corpuscular Hgb 28.6 pg (27.0-32.0); Mean Corpuscular Volume 89.6 fL (81-99); Monocyte# 0.79 X10^3/uL; Monocyte% 2.8 % (0-10); Neutrophil # 26.52 X10^3/uL (2.7-7.7); Neutrophil % 93.2 % (47-70); Partial Thromboplast Time 45.2 Seconds (24.1-36.2); Platelet Count 127 K/mm3 (150-450); RBC Distribution Width SD 48.9 fl (35.1-43.9); Red Blood Count 4.23 M/mm3 (4.2-5.4); White Blood Count 28.5 K/mm3 (4.4-11.0)
[2018-04-13 13:21] LABS: Differential Indicated SCAN CRITERIA MET; POSITIVE COUNT NO; POSITIVE DIFFERENTIAL YES; POSITIVE MORPHOLOGY YES
[2018-04-13 13:22] LABS: Absolute Nucleated RBC Count 0.05 10^3/uL (0-5); NRBC Flagged by Analyzer 0.2 % (0-5)
[2018-04-13 13:28] LABS: ALB/GLOB Ratio 0.5 RATIO (0.9-2.4); AST(SGOT) 42 U/L (15-37); Alanine Aminotransfer ALT/SGPT 19 U/L (13-56); Albumin, Serum 2.6 g/dL (3.2-5.0); Alkaline Phosphatase 168 U/L (45-117); Anion Gap 17 (5-15); BUN 91 mg/dL (7-18); BUN/Creat Ratio 22.1 RATIO (10-20); Calcium,Total 8.8 mg/dL (8.5-10.1); Chloride 91 mmol/L (98-107); Creatinine, Serum 4.12 mg/dL (0.55-1.02); EST Glomerular Filtration Rate 11 mL/min (>60); Est Glom Filt Rate - Afr Amer 13 mL/min (>60); Estimated Creatinine Clearance 7.69 ml/min; Globulin 5.2 g/dL (2.2-4.2); Glucose 91 mg/dL (74-106); Potassium 3.5 mmol/L (3.5-5.1); Protein, Total 7.8 g/dL (6.4-8.2); Sodium Level 135 mmol/L (136-145)
--- NOTE | 2018-04-13 13:35 | CT_ITS ---
STUDY: CT CHEST WITHOUT CONTRAST REASON FOR EXAM: Female, 82 years old. SOB RADIATION DOSAGE (If Supplied By Facility): CTDIvol = ( 20.15 ) mGy, DLP = ( 629.31 ) mGycm TECHNIQUE: Transaxial imaging was performed without the administration of intravenous contrast material. Individualized dose optimization techniques were used for this CT. COMPARISON: None. FINDINGS: Median sternotomy wires. Chronic interstitial lung changes without superimposed acute alveolar disease. There is no demonstrated pleural abnormality. Cardiomegaly. Prosthetic mitral valve. Tracheobronchial calcifications. Normal mediastinum. Normal hilar regions. Normal unenhanced pulmonary arteries. Normal aorta arch and descending thoracic aorta. Degenerative shoulder changes. Multiple remote thoracic and lumbar compression fractures, including T5, T6, T7, and T12. Moderate retropulsion at the T12 level. Remote left rib trauma. There is no demonstrated abnormality of the visualized upper abdomen. CT/Chest without Contrast IMPRESSION: Chronic interstitial lung changes without superimposed acute alveolar disease. Cardiomegaly. Multiple remote thoracic and lumbar compression fractures, including T5, T6, T7, and T12. Moderate retropulsion at the T12 level. Electronically Signed: Dean Medina MD at 15:29 EDT Tel , Service support ,
[2018-04-13 13:43] LABS: Lactic Acid 3.1 mmol/L (0.4-2.0)
[2018-04-13] MEDS: 0.9% Normal Saline 1,000 ML 999 ML IV (13:43)
[2018-04-13 14:50] LABS: Mucous, Urine 0 SEEN /hpf (<or=2+); Red Blood Cells-Urine 0 SEEN /hpf (0-5)
[2018-04-13 14:53] LABS: Color, Urine Yellow (Yellow); Glucose, Dipstick Normal (Normal); Ketone-Dipstick Negative (Negative); Leukocyte Esterase-Dipstick 500 /ul (Negative); Nitrite-Dipstick Positive (Negative); Occult Blood-Urine 150 /ul (Negative); Protein-Dipstick 30 mg/dl (Negative); Urine Clarity Sl. Cloudy (Clear); Urine Urobilinogen 1 mg/dl (Normal)
[2018-04-13 14:56] LABS: Urine Bilirubin Dipstick 3 mg/dL (Negative)
[2018-04-13 15:05] LABS: Bacteria 3+ /hpf (None Seen); Squamous Epithelial Cells - UA 0-5 SEEN /hpf (5-10); White Blood Cells 0-5 SEEN /hpf (0-5)
--- NOTE | 2018-04-13 15:37 | ED.VISSUMM ---
- ER Visit Summary Date of Service: 04/13/18 Chief Complaint: Shortness of breath History of Present Illness: The patient is a 82 F had a cough for about a week. Today found to be very short of breath and continued cough. Noted leg swelling. History of A. fib, coronary artery disease, hypertension, stage III chronic kidney disease, pulmonary hypertension. She has had prior aortic valve placement and mitral valve repair. She is on Coumadin. Physical Examination: On my oral temperature is 100.0. She is 82% on room air. Heart rate of 100. Respirations are 30. Blood pressure 110/90. Gen: Well-nourished well-developed obese Head: Normocephalic atraumatic Eyes: Perrl EOMI ENT: TMs clear no rhinorrhea moist mucous membranes Neck: Supple no lymphadenopathy no JVD nontender CVS: Irregularly irregular rhythm and tachycardic Respiratory: Patient is tachypneic clear to auscultation bilaterally chest nontender Abdomen: Soft nontender nondistended normal bowel sounds no masses Back: Nontender Extremity: Bilateral leg swelling. Left anterior thigh erythematous. The lower legs show chronic changes. Skin: Normal color no rash Neuro: alert orientated ?3 CN II-XII intact Psych: Normal affect normal mood Test Results: Chest x-ray shows no obvious infiltrative changes. EKG shows A. fib at a rate of 94. White count 28.5. Creatinine 4.12 which is significantly off its baseline and constitutes re-acute renal failure. Troponin 0 0.412. Lactic acid 3.1. INR supratherapeutic at 4. CT of the chest noncontrast shows no obvious infiltrate or significant vascular congestion. Emergency Department Course and Treatment: Patient was initially placed on BiPAP and then weaned to nasal cannula. Blood and urine cultures obtained. She received fluids and vancomycin. Plan is admission into the hospital. Impression: 1. Dyspnea 2. Left leg cellulitis 3. Sepsis 4. Hypoxemia 5. Supratherapeutic INR 6. Acute renal failure 7. Elevated troponin This note was generated with Freebee dictation software. It may contain incorrect words, spelling, and punctuation that were not noted in review of the chart prior to signing ED Disposition - Plan for ED Patient: Chief Complaint: Shortness of Breath Referrals: Shelby Pena MD [Primary Care Provider] -
--- NOTE | 2018-04-13 15:53 | NURSING ---
PCU [facility] LEFT LEG CELLULITIS, ACUTE RENAL FAILURE, HYPOXEMIA, SEPSIS
--- NOTE | 2018-04-13 16:58 | PCM.HP.STD ---
Problem List (1) Shortness of breath Status: Acute History of Present Illness Date of Admission: 04/13/18 Chief Complaint: shortness of breath The patient is a 82 year old F with an extensive past medical history as listed below. She was admitted to the ED on 04/13/2018 from extended care facility with complaint of shortness of breath which started about a few days ago. Patient could not give much of history and history was mainly taken from her [id number]. States she was called the patient was getting short of breath and requiring increasing amounts of oxygen and so they decided to bring her here. She had noted that she had a cough but I do not that it been productive. Patient was able to nod her head and respond to questions as a speech was not very clear which is chronic. She denied any fever or chills, any chest pain, any abdominal pain, any diarrhea vomiting. She did have lower extremity edema which is chronic but [id number] had noticed that the swelling had become worse and she had redness on the left lower extremity. Patient was noted to have fever of 100 Fahrenheit in the ED D and she was breathing at 33 at time of review. Labs were significant for sodium of 135 and creatinine of 4.12 with baseline being less than 1. Lactic acid was elevated at 3.1 initial troponin was 0.412. CBC showed white cell count of 28.5 and platelets of 127. INR was supratherapeutic at 4 chest x-ray showed pulmonary congestion with CT of the chest showing no obvious infiltrate or significant vascular congestion. She was started on BiPAP in the ED on account of hypoxia which was saturating at 82% on room air at time of admission in the ED and she was gradually weaned to 4 L of oxygen by nasal cannula. She received a dose of IV vancomycin and she is been admitted to be managed for severe sepsis possibly due to left lower extremity cellulitis, shortness of breath as well as KIMBERLEY. 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) HTN (hypertension) (Chronic) CAD (coronary artery disease) (Chronic) Allergies No Known Allergies Allergy (Verified 04/13/18 11:41) Home Medications: Ambulatory Orders Medication Instructions Recorded Ferrous Sulfate 325 mg PO DAILY 12/23/15 Metoprolol Tartrate [Lopressor 50 mg PO BID 12/23/15 (beta jignesh)] Ergocalciferol [Vitamin D] 50,000 unit PO TU 01/13/16 Acetaminophen [Mapap] 1,000 mg PO DINNER 02/08/17 Cholecalciferol (VIT D3) [Vitamin 1,000 unit PO DAILY #30 tablet 02/11/17 D3] Docusate Sodium [Colace] 200 mg PO BID #60 capsule 02/11/17 Bumetanide 1 mg PO DAILY #30 02/14/17 Bumetanide [Bumex] 2 mg NG LUNCH 04/13/18 Calcium (Elemental) [Os-Roger 500] 1,000 mg PO DAILY 04/13/18 Magnesium Oxide [Mag-Ox 400] 400 mg PO QODAY 04/13/18 Omeprazole [Prilosec] 20 mg PO BID 04/13/18 Spironolactone [Aldactone] 25 mg PO BID 04/13/18 Warfarin Sodium [Coumadin] 4 mg PO [id number] 04/13/18 Warfarin [Coumadin (PBKC)] 6 mg PO DILLON@1700 04/13/18 Surgical History: angioplasty, total hip arthroplasty, - Lives: - - extended care facility Smoking Status: Former smoker Alcohol: None - *Family History Maternal History Items: Pulmonary Disease, - Paternal History Items: - - father had gangrene in his foot Sibling History Items: Diabetes - one with ESRD due to diabetes on HD Review of Systems Constitutional: Denies: Chills, Fever, Weight Change Eyes: Denies: Blurred vision HEENT: Denies: Head Aches, Sinus Congestion, Sinus Drainage Cardiovascular: Reports: Edema. Denies: Chest Pain, Orthopnea, Palpitations, Paroxysmal Noc. Dyspnea, Syncope Respiratory: Reports: Cough, Shortness of Breath, Shortness of breath at rest. Denies: Shortness of breath upon exertion, Sputum production, Wheezing Gastrointestinal: Denies: Abdominal Pain, Nausea, Vomiting Genitourinary: Denies: Dysuria Musculoskeletal: Denies: Joint Pain, Joint Tenderness Skin: Denies: Rash, Wounds Neurological: Denies: Numbness, Tingling, Focal weakness Psychiatric: Denies: Anxiety, Depression, Homicidal Ideations, Suicidal Ideations Hematologic/ Lymphatic: Denies: Easy Bruising, Easy Bleeding VTE Information - Inpt Only VTE Present on Admission: No VTE Mechan Device Prophylaxis: SCD's Patient Problems: Active and Suspected Problems Shortness of breath (Acute) - Physical Exam General: Alert, Cooperative, No apparent distress HEENT: Atraumatic, PERRLA, EOMI, Normocephalic Oral: Dry Mucosa Neck: Supple, No JVD, Negative Carotid Bruits Lungs: - - mildly decreased breath sounds bibasally, with few crackles and Cardiovascular: Regular rate, Normal S1, Normal S2, - - grade 3 systolic murmur in aortic and pulmonary valve areas Abdomen: Bowel Sounds Present, Soft, Non Tender, Non-Distended, No Hepato-splenomegaly Extremities: No clubbing, No cyanosis, Edema, - - bilateral 2+ LE pitting pedal edema; erythema of the LLE, extending up to the knee; LLE wrapped in bandage Skin: No rashes, No breakdown Musculoskeletal: No Tenderness to Palpation of Joints or Extremities Lymphatic: No Cervical, Supraclavicular, or Inguinal Adenopathy Neurological: Cranial nerves II-XII grossly intact Psych/Mental Status: Normal Affect, Appropriate, Alert and oriented to time, place, person, mood and affect Vital Signs Temp Pulse Resp BP Pulse Ox 100.0 F H 93 33 H 103/63 95 04/13/18 13:03 04/13/18 16:04 04/13/18 16:04 04/13/18 16:04 04/13/18 16:04 Oxygen Flow Rate (L/min) 4 Oxygen Delivery Method Nasal Cannula Weight: 254 lb 3.2 oz Body Mass Index (BMI) 49.6 Laboratory Tests Past 24 Hrs 04/13/18 04/13/18 04/13/18 12:05 12:05 12:05 WBC 28.5 H RBC 4.23 Hgb 12.1 Hct 37.9 MCV 89.6 MCH 28.6 MCHC 31.9 L RDW 15.0 H RDW Differential 48.9 H Plt Count 127 L MPV 11.0 Immature Gran % (Auto) 2.100 H Neut % (Auto) 93.2 H Lymph % (Auto) 1.9 L [place] % (Auto) 2.8 Eos % (Auto) 0.0 Baso % (Auto) 0.0 Absolute Neuts (auto) 26.5 H Absolute Lymphs (auto) 0.55 L Total Counted Not Reportable Nucleated RBC % 0.2 Differential Comment COMMENT Diff Path Review May foll Absolute Retic 0.05 PT 39.5 H INR 4.0 H* APTT 45.2 H Sodium 135 L Potassium 3.5 Chloride 91 L Carbon Dioxide 27.0 Anion Gap 17 H BUN 91 H Creatinine 4.12 H Estim Creat Clear Calc 7.69 Est GFR (MDRD) Af Amer 13 L Est GFR (MDRD) Non-Af 11 L BUN/Creatinine Ratio 22.1 H Glucose 91 Lactic Acid Calcium 8.8 Total Bilirubin 1.00 AST 42 H ALT 19 Alkaline Phosphatase 168 H Troponin I 0.412 H Total Protein 7.8 Albumin 2.6 L Globulin 5.2 H Albumin/Globulin Ratio 0.5 L Urine Color Urine Clarity Urine pH Ur Specific [place] Urine Protein Urine Glucose (UA) Urine Ketones Urine Occult Blood Urine Nitrite Urine Bilirubin Urine Urobilinogen Ur Leukocyte Esterase Urine RBC Urine WBC Ur Squamous Epith Cells Urine Bacteria Urine Mucus 04/13/18 04/13/18 12:05 14:40 WBC RBC Hgb Hct MCV MCH MCHC RDW RDW Differential Plt Count MPV Immature Gran % (Auto) Neut % (Auto) Lymph % (Auto) [place] % (Auto) Eos % (Auto) Baso % (Auto) Absolute Neuts (auto) Absolute Lymphs (auto) Total Counted Nucleated RBC % Differential Comment Diff Path Review Absolute Retic PT INR APTT Sodium Potassium Chloride Carbon Dioxide Anion Gap BUN Creatinine Estim Creat Clear Calc Est GFR (MDRD) Af Amer Est GFR (MDRD) Non-Af BUN/Creatinine Ratio Glucose Lactic Acid 3.1 H Calcium Total Bilirubin AST ALT Alkaline Phosphatase Troponin I Total Protein Albumin Globulin Albumin/Globulin Ratio Urine Color Yellow Urine Clarity Sl. Cloudy Urine pH 5.0 Ur Specific [place] 1.020 Urine Protein 30 H Urine Glucose (UA) Normal Urine Ketones Negative Urine Occult Blood 150 H Urine Nitrite Positive H Urine Bilirubin 3 H Urine Urobilinogen 1 H Ur Leukocyte Esterase 500 H Urine RBC 0 SEEN Urine WBC 0-5 SEEN Ur Squamous Epith Cells 0-5 SEEN Urine Bacteria 3+ Urine Mucus 0 SEEN Diagnostic Data Chest X-Ray 04/13/18 12:55 IMPRESSION: 1. Prominent markings consistent with mild pulmonary venous congestion. 2. Status post mediastinotomy and valve replacement. Electronically Signed: Elijah Milner MD at 13:23 EDT Tel , Service support , Chest CT 04/13/18 13:35 IMPRESSION: Chronic interstitial lung changes without superimposed acute alveolar disease. Cardiomegaly. Multiple remote thoracic and lumbar compression fractures, including T5, T6, T7, and T12. Moderate retropulsion at the T12 level. Electronically Signed: Dean Medina MD at 15:29 EDT Tel , Service support , Assessment/Plan All Active Problems Shortness of breath (Acute) Fracture of femoral neck, right, closed (Acute) Pre-op evaluation (Acute) 82-year-old female admitted through the ED with a complaint of worsening shortness of breath. 1. Severe sepsis due to LLE cellulitis and UTI LLE wrapped in MELISA bandage; erythematous up to knee UA shows 3+ bacteria and LE of 500 lactic acid elevated at 3.1 admit to PCU with telemetry SIRS criteria- 2/4 (elevated wbc, tachypnea) blood culture, urine culture received one dose of vancomycin in the ED. We will continue IV vancomycin-renally dosed, and IV cefepime ID consult will hydrate very gently with IVF as I suspect her SOB is due to chf exacerbation 2. Acute hypoxic respiratory failure due to CHF exacerbation and likely worsening of pulmonary hypertension Was saturating at 82% on room air in the ED. Patient is tachypneic and breathing at 33 at time of review. X-ray showed evidence of pulmonary congestion. Will check BNP to assess for heart failure We will give IV Lasix 40 mg twice daily. Gets 2D echo 3. NSTEMI: tropnin elevated at 0.412. EKG showed no acute ST changes. May also be due to troponin leak and also so decreased troponin clearance from [place] I Cycle troponins Cardiology consult SL nitroglycerin as needed; aspirin 81mg daily 4. KIMBERLEY: Cr is 4.12. Baseline is <1. unable to give IVF due to HFrEF. nephrology consult. check urine electrolytes to check FeUrea kidney USG 5. Lactic acidosis: Lactic acid is 3.1. Likely due to sepsis. Will repeat per sepsis protocol. 6. Acute CHF exacerbation: as under 2. last echo(04/29): EF of 55%, with normal LVSF, moderately enlarged LA and RA. moderate 2+ TI. Stable bioprosthetic aortic valve apparatus; RVSP of 71mmHg. also on bumetanide. WIll hold bumetanide for now. on metoprolol; will continue. also on spironolactone. 7. Pulmonary hypertension: RVSP per echo in 2011 was 71mmHg. This may have worsened. WIll repeat echo 8. Afib: on coumadin. INR is 4. Will hold coumadin and monitor INR DVT prophylaxis: SCDs Code Status: full code. Patient and daughter in law counseled about different types of CODE STATUS including full code, DNR CCA and DNR CCA. [id number] states that patient has CODE STATUS on file and is a DNR CCA. Asked to bring the papers so that we can confirm. Total [id number] time 60 minutes. Code Visit Inpatient E&M: 87195 Init Hosp L3 Procedures: 97147 Advncd Care Plan 30 Min
[2018-04-13 17:01] LABS: Reflex Lactate? Y
--- NOTE | 2018-04-13 17:02 | HP.PCM_ITS ---
Problem List (1) Shortness of breath Status: Acute History of Present Illness Date of Admission: 04/13/18 Chief Complaint: shortness of breath The patient is a 82 year old F with an extensive past medical history as listed below. She was admitted to the ED on 04/13/2018 from extended care facility with complaint of shortness of breath which started about a few days ago. Patient could not give much of history and history was mainly taken from her maría [id number]. States she was called the patient was getting short of breath and requiring increasing amounts of oxygen and so they decided to bring her here. She had noted that she had a cough but I do not that it been productive. Patient was able to nod her head and respond to questions as a speech was not very clear which is chronic. She denied any fever or chills, any chest pain, any abdominal pain, any diarrhea vomiting. She did have lower extremity edema which is chronic but [id number] had noticed that the swelling had become worse and she had redness on the left lower extremity. Patient was noted to have fever of 100 Fahrenheit in the ED D and she was breathing at 33 at time of review. Labs were significant for sodium of 135 and creatinine of 4.12 with baseline being less than 1. Lactic acid was elevated at 3.1 initial troponin was 0.412. CBC showed white cell count of 28.5 and platelets of 127. INR was supratherapeutic at 4 chest x-ray showed pulmonary congestion with CT of the chest showing no obvious infiltrate or significant vascular congestion. She was started on BiPAP in the ED on account of hypoxia which was saturating at 82% on room air at time of admission in the ED and she was gradually weaned to 4 L of oxygen by nasal cannula. She received a dose of IV vancomycin and she is been admitted to be managed for severe sepsis possibly due to left lower extremity cellulitis, shortness of breath as well as KIMBERLEY. 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) HTN (hypertension) (Chronic) CAD (coronary artery disease) (Chronic) Allergies No Known Allergies Allergy (Verified 04/13/18 11:41) Home Medications: Ambulatory Orders Medication Instructions Recorded Ferrous Sulfate 325 mg PO DAILY 12/23/15 Metoprolol Tartrate [Lopressor 50 mg PO BID 12/23/15 (beta jignesh)] Ergocalciferol [Vitamin D] 50,000 unit PO TU 01/13/16 Acetaminophen [Mapap] 1,000 mg PO DINNER 02/08/17 Cholecalciferol (VIT D3) [Vitamin 1,000 unit PO DAILY #30 tablet 02/11/17 D3] Docusate Sodium [Colace] 200 mg PO BID #60 capsule 02/11/17 Bumetanide 1 mg PO DAILY #30 02/14/17 Bumetanide [Bumex] 2 mg NG LUNCH 04/13/18 Calcium (Elemental) [Os-Roger 500] 1,000 mg PO DAILY 04/13/18 Magnesium Oxide [Mag-Ox 400] 400 mg PO QODAY 04/13/18 Omeprazole [Prilosec] 20 mg PO BID 04/13/18 Spironolactone [Aldactone] 25 mg PO BID 04/13/18 Warfarin Sodium [Coumadin] 4 mg PO [id number] 04/13/18 Warfarin [Coumadin (PBKC)] 6 mg PO DILLON@1700 04/13/18 Surgical History: angioplasty, total hip arthroplasty, - Lives: - - extended care facility Smoking Status: Former smoker Alcohol: None - *Family History Maternal History Items: Pulmonary Disease, - Paternal History Items: - - father had gangrene in his foot Sibling History Items: Diabetes - one with ESRD due to diabetes on HD Review of Systems Constitutional: Denies: Chills, Fever, Weight Change Eyes: Denies: Blurred vision HEENT: Denies: Head Aches, Sinus Congestion, Sinus Drainage Cardiovascular: Reports: Edema. Denies: Chest Pain, Orthopnea, Palpitations, Paroxysmal Noc. Dyspnea, Syncope Respiratory: Reports: Cough, Shortness of Breath, Shortness of breath at rest. Denies: Shortness of breath upon exertion, Sputum production, Wheezing Gastrointestinal: Denies: Abdominal Pain, Nausea, Vomiting Genitourinary: Denies: Dysuria Musculoskeletal: Denies: Joint Pain, Joint Tenderness Skin: Denies: Rash, Wounds Neurological: Denies: Numbness, Tingling, Focal weakness Psychiatric: Denies: Anxiety, Depression, Homicidal Ideations, Suicidal Ideations Hematologic/ Lymphatic: Denies: Easy Bruising, Easy Bleeding VTE Information - Inpt Only VTE Present on Admission: No VTE Mechan Device Prophylaxis: SCD's Patient Problems: Active and Suspected Problems Shortness of breath (Acute) - Physical Exam General: Alert, Cooperative, No apparent distress HEENT: Atraumatic, PERRLA, EOMI, Normocephalic Oral: Dry Mucosa Neck: Supple, No JVD, Negative Carotid Bruits Lungs: - - mildly decreased breath sounds bibasally, with few crackles and Cardiovascular: Regular rate, Normal S1, Normal S2, - - grade 3 systolic murmur in aortic and pulmonary valve areas Abdomen: Bowel Sounds Present, Soft, Non Tender, Non-Distended, No Hepato- splenomegaly Extremities: No clubbing, No cyanosis, Edema, - - bilateral 2+ LE pitting pedal edema; erythema of the LLE, extending up to the knee; LLE wrapped in bandage Skin: No rashes, No breakdown Musculoskeletal: No Tenderness to Palpation of Joints or Extremities Lymphatic: No Cervical, Supraclavicular, or Inguinal Adenopathy Neurological: Cranial nerves II-XII grossly intact Psych/Mental Status: Normal Affect, Appropriate, Alert and oriented to time, place, person, mood and affect Vital Signs Temp Pulse Resp BP Pulse Ox 100.0 F H 93 33 H 103/63 95 04/13/18 13:03 04/13/18 16:04 04/13/18 16:04 04/13/18 16:04 04/13/18 16:04 Oxygen Flow Rate (L/min) 4 Oxygen Delivery Method Nasal Cannula Weight: 254 lb 3.2 oz Body Mass Index (BMI) 49.6 Laboratory Tests Past 24 Hrs 04/13/18 04/13/18 04/13/18 12:05 12:05 12:05 WBC 28.5 H RBC 4.23 Hgb 12.1 Hct 37.9 MCV 89.6 MCH 28.6 MCHC 31.9 L RDW 15.0 H RDW Differential 48.9 H Plt Count 127 L MPV 11.0 Immature Gran % (Auto) 2.100 H Neut % (Auto) 93.2 H Lymph % (Auto) 1.9 L Gillespie % (Auto) 2.8 Eos % (Auto) 0.0 Baso % (Auto) 0.0 Absolute Neuts (auto) 26.5 H Absolute Lymphs (auto) 0.55 L Total Counted Not Reportable Nucleated RBC % 0.2 Differential Comment COMMENT Diff Path Review May foll Absolute Retic 0.05 PT 39.5 H INR 4.0 H* APTT 45.2 H Sodium 135 L Potassium 3.5 Chloride 91 L Carbon Dioxide 27.0 Anion Gap 17 H BUN 91 H Creatinine 4.12 H Estim Creat Clear Calc 7.69 Est GFR (MDRD) Af Amer 13 L Est GFR (MDRD) Non-Af 11 L BUN/Creatinine Ratio 22.1 H Glucose 91 Lactic Acid Calcium 8.8 Total Bilirubin 1.00 AST 42 H ALT 19 Alkaline Phosphatase 168 H Troponin I 0.412 H Total Protein 7.8 Albumin 2.6 L Globulin 5.2 H Albumin/Globulin Ratio 0.5 L Urine Color Urine Clarity Urine pH Ur Specific [place] Urine Protein Urine Glucose (UA) Urine Ketones Urine Occult Blood Urine Nitrite Urine Bilirubin Urine Urobilinogen Ur Leukocyte Esterase Urine RBC Urine WBC Ur Squamous Epith Cells Urine Bacteria Urine Mucus 04/13/18 04/13/18 12:05 14:40 WBC RBC Hgb Hct MCV MCH MCHC RDW RDW Differential Plt Count MPV Immature Gran % (Auto) Neut % (Auto) Lymph % (Auto) Gillespie % (Auto) Eos % (Auto) Baso % (Auto) Absolute Neuts (auto) Absolute Lymphs (auto) Total Counted Nucleated RBC % Differential Comment Diff Path Review Absolute Retic PT INR APTT Sodium Potassium Chloride Carbon Dioxide Anion Gap BUN Creatinine Estim Creat Clear Calc Est GFR (MDRD) Af Amer Est GFR (MDRD) Non-Af BUN/Creatinine Ratio Glucose Lactic Acid 3.1 H Calcium Total Bilirubin AST ALT Alkaline Phosphatase Troponin I Total Protein Albumin Globulin Albumin/Globulin Ratio Urine Color Yellow Urine Clarity Sl. Cloudy Urine pH 5.0 Ur Specific [place] 1.020 Urine Protein 30 H Urine Glucose (UA) Normal Urine Ketones Negative Urine Occult Blood 150 H Urine Nitrite Positive H Urine Bilirubin 3 H Urine Urobilinogen 1 H Ur Leukocyte Esterase 500 H Urine RBC 0 SEEN Urine WBC 0-5 SEEN Ur Squamous Epith Cells 0-5 SEEN Urine Bacteria 3+ Urine Mucus 0 SEEN Diagnostic Data Chest X-Ray 04/13/18 12:55 IMPRESSION: 1. Prominent markings consistent with mild pulmonary venous congestion. 2. Status post mediastinotomy and valve replacement. Electronically Signed: Elijah Milner MD at 13:23 EDT Tel , Service support , Chest CT 04/13/18 13:35 IMPRESSION: Chronic interstitial lung changes without superimposed acute alveolar disease. Cardiomegaly. Multiple remote thoracic and lumbar compression fractures, including T5, T6, T7, and T12. Moderate retropulsion at the T12 level. Electronically Signed: Dean Medina MD at 15:29 EDT Tel , Service support , Assessment/Plan All Active Problems Shortness of breath (Acute) Fracture of femoral neck, right, closed (Acute) Pre-op evaluation (Acute) 82-year-old female admitted through the ED with a complaint of worsening shortness of breath. 1. Severe sepsis due to LLE cellulitis and UTI * LLE wrapped in MELISA bandage; erythematous up to knee * UA shows 3+ bacteria and LE of 500 * lactic acid elevated at 3.1 * admit to PCU with telemetry * SIRS criteria- 2/4 (elevated wbc, tachypnea) * blood culture, urine culture * received one dose of vancomycin in the ED. We will continue IV vancomycin- renally dosed, and IV cefepime * ID consult * will hydrate very gently with IVF as I suspect her SOB is due to chf exacerbation * 2. Acute hypoxic respiratory failure due to CHF exacerbation and likely worsening of pulmonary hypertension * Was saturating at 82% on room air in the ED. Patient is tachypneic and breathing at 33 at time of review. * X-ray showed evidence of pulmonary congestion. Will check BNP to assess for heart failure * We will give IV Lasix 40 mg twice daily. * Gets 2D echo * 3. NSTEMI: * tropnin elevated at 0.412. EKG showed no acute ST changes. * May also be due to troponin leak and also so decreased troponin clearance from AK I * Cycle troponins * Cardiology consult * SL nitroglycerin as needed; aspirin 81mg daily * 4. KIMBERLEY: * Cr is 4.12. Baseline is <1. * unable to give IVF due to HFrEF. * nephrology consult. check urine electrolytes to check FeUrea * kidney USG * 5. Lactic acidosis: Lactic acid is 3.1. Likely due to sepsis. Will repeat per sepsis protocol. 6. Acute CHF exacerbation: * as under 2. * last echo(04/29): EF of 55%, with normal LVSF, moderately enlarged LA and RA. moderate 2+ TI. Stable bioprosthetic aortic valve apparatus; RVSP of 71mmHg. * also on bumetanide. * WIll hold bumetanide for now. on metoprolol; will continue. also on spironolactone. * 7. Pulmonary hypertension: RVSP per echo in 2011 was 71mmHg. This may have worsened. WIll repeat echo 8. Afib: on coumadin. INR is 4. Will hold coumadin and monitor INR DVT prophylaxis: SCDs Code Status: full code. * Patient and daughter in law counseled about different types of CODE STATUS including full code, DNR CCA and DNR CCA. [id number] states that patient has CODE STATUS on file and is a DNR CCA. Asked to bring the papers so that we can confirm. Total [id number] time 60 minutes. Code Visit Inpatient E&M: 22294 Init Hosp L3 Procedures: 48792 Advncd Care Plan 30 Min
[2018-04-13 17:52] LABS: Lactic Acid 1.8 mmol/L (0.4-2.0)
[2018-04-13] MEDS: 0.9% Saline Lock 10 ML Syringe IV (17:54)
[2018-04-13] MEDS: Furosemide 40 MG/4 ML Vial IV (17:54)
--- NOTE | 2018-04-13 19:21 | US_ITS ---
STUDY: RENAL ULTRASOUND - COMPLETE REASON FOR EXAM: Female, 82 years old. Acute renal failure TECHNIQUE: Ultrasound evaluation of the kidneys was performed with real-time and static rooney-scale imaging. COMPARISON: None. FINDINGS: RIGHT KIDNEY: Normal location of the right kidney, which is normal in size. The right kidney measures 9.3 x 5.3 x 4.2 cm. There is diffuse thinning of the renal cortex. The renal cortex measures 0.8 cm. There is no right renal mass or cyst. There are no right renal calculi. There is no right hydronephrosis. DISTAL RIGHT URETER: There is non-visualization of the distal right ureter. There is no demonstrated right ureterovesical junction calculus. There is no demonstrated right ureteral jet. LEFT KIDNEY: Normal location of the left kidney, which is normal in size. The left kidney measures 9.6 x 5.1 x 4.1 cm. There is diffuse thinning of the renal cortex. The renal cortex measures 0.7 cm. There is no left renal mass or cyst. There are no left renal calculi. There is no left hydronephrosis. DISTAL LEFT URETER: There is non-visualization of the distal left ureter. There is no demonstrated left ureterovesical junction calculus. There is a visualized left ureteral jet. AORTA: There is obscuration of the abdominal aorta by overlying bowel gas I.V.C.: The IVC is obscured. BLADDER: Not seen US/Kidney and Bladder IMPRESSION: There is mild cortical thinning of the kidneys Urinary bladder aorta and IVC cannot be seen because of overlying bowel gas. Electronically Signed: Chau Mayfield MD at 21:35 EDT , Service support ,
[2018-04-13 19:50] LABS: Urine Sodium 17 mmol/L (Not Establ.)
[2018-04-13] MEDS: 0.9% Normal Saline 1,000 ML 100 ML IV (20:15)
[2018-04-13] MEDS: Metoprolol Tartrate 50 MG Tablet PO (21:43)
[2018-04-13] MEDS: Docusate Sodium 100 MG Capsule 200 MG PO (21:44)
[2018-04-13] MEDS: Menthol/Lanolin/Calamine/Znox 113 GM Tube 1 APPLIC TOPICAL (21:44)
[2018-04-13] MEDS: Cefepime 1 GM in 0.9% NS 50 ML Minibag Q12 IV (21:45)
[2018-04-13] MEDS: Pantoprazole Sodium 20 MG Tablet PO (21:45)
[2018-04-13 23:32] LABS: Magnesium 2.5 mg/dL (1.6-2.6)
[2018-04-14] VITALS (17 sets, daily range): BP systolic 92–108; BP diastolic 47–65; PULSE 39–88; RESP 18–26; TEMP 36.4–36.7; O2SAT 94–97
[2018-04-14 07:13] LABS: Prothrombin Time (Protime)PT. 46.1 SECONDS (11.7-14.9)
[2018-04-14 07:14] LABS: Absolute Lymphocyte Count 1.37 X10^3/ul (0.83-4.51); Absolute Neutrophil Count 29.7 X10^3/uL (2.0-7.7); Basophil# 0.03 X10^3/uL; Basophil% 0.1 % (0-1); Hematocrit 36.4 % (37-47); Hemoglobin 11.3 g/dl (12.0-15.0); Lymphocyte # 1.37 X10^3/ul (4.0); Lymphocyte % 4.2 % (19-41); Mean Corpuscular Hgb 28.4 pg (27.0-32.0); Mean Corpuscular Volume 91.5 fL (81-99); Monocyte# 1.49 X10^3/uL; Monocyte% 4.6 % (0-10); Neutrophil # 29.69 X10^3/uL (2.7-7.7); Neutrophil % 90.7 % (47-70); Platelet Count 114 K/mm3 (150-450); RBC Distribution Width CV 15.3 % (11.6-14.6); RBC Distribution Width SD 51.1 fl (35.1-43.9); Red Blood Count 3.98 M/mm3 (4.2-5.4)
[2018-04-14 07:17] LABS: Differential Indicated SCAN CRITERIA MET; POSITIVE COUNT YES; POSITIVE DIFFERENTIAL YES; POSITIVE MORPHOLOGY NO; White Blood Count 32.7 K/mm3 (4.4-11.0)
[2018-04-14 07:18] LABS: Absolute Nucleated RBC Count 0.06 10^3/uL (0-5); NRBC Flagged by Analyzer 0.2 % (0-5)
[2018-04-14 07:46] LABS: International Normalized Ratio 4.9
[2018-04-14 07:47] LABS: Vancomycin, Random Level 17.1 ug/mL (0.0-15.0)
[2018-04-14 07:53] LABS: Anion Gap 17 (5-15); BUN 105 mg/dL (7-18); BUN/Creat Ratio 24.5 RATIO (10-20); Calcium,Total 8.6 mg/dL (8.5-10.1); Chloride 95 mmol/L (98-107); Creatinine, Serum 4.28 mg/dL (0.55-1.02); EST Glomerular Filtration Rate 11 mL/min (>60); Est Glom Filt Rate - Afr Amer 13 mL/min (>60); Estimated Creatinine Clearance 9.28 ml/min; Glucose 86 mg/dL (74-106); Potassium 3.9 mmol/L (3.5-5.1); Sodium Level 136 mmol/L (136-145)
--- NOTE | 2018-04-14 08:00 | ECHOD_ITS ---
[id number] ECHO^ECHOD^Echo Complete [id number] TAG_START [facility] Echocardiogram [address] [place] [address] [place], [place] [address] Ordering Physician: Edwina Graves TAG_ENDED TAG_START Name: NIRMALA SHETTY Study Date: 04/15/2018 12:07 PM BP: 110/68 mmHg Patient Location: [facility]^ZPC129^1 BSA: 2.1 m2 : 1935 Gender: Female Height: 65 in Age: 82 yrs Weight: 242 lb History: Lymphedema, Anemia, S/P AVR, PHTN, CKD stage III, Afib, Speech disorder, HTN, CAD, Previous smoker TAG_ENDED Reason For Study: Dyspnea/SOB Procedure This was a 2D Doppler, Color Flow transthoracic echocardiogram. Exam performed in department. Left Ventricle Moderate concentric left ventricular hypertrophy. The estimated ejection fraction is 65 %. Unable to assess diastolic dysfunction due to arrhythmia. No regional wall motion abnormalities noted. TAG_START I Segments Size 1-2 small X - Cannot 1 - Normal 2 - 3 - Akinetic 4 - Dyskinetic3-5 moderate Interpret Hypokinetic 6-14 large 5 - Aneurysmal 15-16 diffuse TAG_ENDED Right Ventricle Severely dilated right ventricle. Moderately severe global right ventricular systolic dysfunction. Atria The left atrium is moderately enlarged. The right atrium is severely enlarged. Normal atrial septum. Mitral Valve Rheumatic appearing mitral valve. Severe diffuse mitral valve thickening. Severe mitral valve stenosis. Peak transmitral valve gradient 28 mmHg. Mean transmitral valve gradient 10 mmHg. Mitral valve area. Tricuspid Valve Normal tricuspid valve. Moderate (2+) tricuspid valve insufficiency. Right ventricular systolic pressure estimated to be 86 mmHg. Severe pulmonary hypertension. Aortic Valve Peak aortic valve gradient 32 mmHg. Mean aortic valve gradient 16 mmHg. Stable appearing bioprosthetic aortic valve apparatus. Pulmonic Valve Normal pulmonic valve. Great Vessels Calcified aortic root. Mild atherosclerosis of the aortic arch. The inferior vena cava is dilated. No collapse of the inferior vena cava. Pericardium/Pleural No pericardial effusion. MMode/2D Measurements & Calculations LVIDd: 3.6 cm IVSd: 1.5 cm LVOT diam: 2.0 cm LVIDs: 2.3 cm LVPWd: 1.3 cm LVOT area: 3.2 cm2 RVDd: 5.7 cm FS: 35.9 % Ao root diam: 3.3 cm LAV(MOD-bp): 78.9 ml LA A4 area: 24.3 cm2 LAV(MOD-bp) Indexed: 36.8 ml/m2 LAV(MOD-sp2): 93.3 ml LAV(MOD-sp4): 68.9 ml LA dimension(2D): 4.2 cm RA A4 area: 25.5 cm2 Doppler Measurements & Calculations MV E max telma: 176.2 cm/sec MV V2 max: 262.4 cm/sec Ao V2 max: 282.8 cm/sec MV max P.6 mmHg Ao max P.1 mmHg MV V2 mean: 147.0 cm/sec Ao V2 mean: 186.0 cm/sec MV mean P.4 mmHg Ao mean P.0 mmHg MV V2 VTI: 67.7 cm Ao V2 VTI: 55.3 cm MVA(VTI): 1.2 cm2 MARGO(I,D): 1.4 cm2 MARGO(V,D): 1.5 cm2 LV V1 max: 133.3 cm/sec SV(LVOT): 79.7 ml PA V2 max: 104.3 cm/sec LV V1 max P.1 mmHg LV V1 mean P.6 mmHg LV V1 mean: 88.1 cm/sec LV V1 VTI: 24.6 cm TR max telma: 420.0 cm/sec TR max P.6 mmHg Interpretation Summary Moderate concentric left ventricular hypertrophy. The estimated ejection fraction is 65 %. Unable to assess diastolic dysfunction due to arrhythmia. Severely dilated right ventricle. Moderately severe global right ventricular systolic dysfunction. The right atrium is severely enlarged. The left atrium is moderately enlarged. Rheumatic appearing mitral valve. Severe mitral valve stenosis. Peak transmitral valve gradient 28 mmHg. Mean transmitral valve gradient 10 mmHg. Mitral valve area. Moderate (2+) tricuspid valve insufficiency. Right ventricular systolic pressure estimated to be 86 mmHg. Severe pulmonary hypertension. Stable and normal appearing bioprosthetic aortic valve apparatus. Compared to echo report dated 02/08/2017, LV function has remained the same, but RVSP has increased from 64 to 86 mm Hg. Pt now appears to be in atrial fibrillation. TAG_START TAG_ENDED Ordering Physician: Edwina Graves Referring Physician: Shelby Pena Performed By: Rubi Johnson, JOHANNE, RVT
--- NOTE | 2018-04-14 08:10 | PCM.RX.CS ---
Consult Pharmacy has been consulted to manage selected antiobiotic: Vancomycin Type of Consult: New start Suspected Infection: Sepsis Prior Doses of Antibiotics Received/Current Regimen: Vancomycin 1500mg IV x1 in ER 04/13/18 at 1600. Labs: Sodium 136 mmol/L (136-145) 04/14/18 05:55 Potassium 3.9 mmol/L (3.5-5.1) 04/14/18 05:55 Chloride 95 mmol/L (98-107) L 04/14/18 05:55 Carbon Dioxide 24.0 mmol/L (21.0-32.0) 04/14/18 05:55 Anion Gap 17 (5-15) H 04/14/18 05:55 BUN 105 mg/dL (7-18) H* 04/14/18 05:55 Creatinine 4.28 mg/dL (0.55-1.02) H 04/14/18 05:55 Est GFR (MDRD) Af Amer 13 mL/min (>60) L 04/14/18 05:55 Est GFR (MDRD) Non-Af 11 mL/min (>60) L 04/14/18 05:55 BUN/Creatinine Ratio 24.5 RATIO (10-20) H 04/14/18 05:55 Glucose 86 mg/dL (74-106) 04/14/18 05:55 Random Vancomycin 17.1 ug/mL (0.0-15.0) H 04/14/18 05:55 Microbiology: Microbiology 04/13/18 15:41 Blood Culture (Wb) - Anticubital Right Bacteria Detection (PCR) - Preliminary Streptococcus agalactiae (B) 04/13/18 15:41 Blood Culture (Wb) - Anticubital Right Blood Culture - Preliminary 04/13/18 17:15 Blood Culture (Wb) - Anticubital Right Blood Culture - Preliminary Weight used for dosin kg Estimated Creatinine Clearance: 9ml/min Goal Trough: 10-15 mcg/mL Pharmacy Plan for Drug Dosing: Vancomycin random level came back at 17.1 on 04/14/18. Recommend not giving any doses today (04/14/18) and getting another random level on 04/15/18 at 0600. Pharmacy Service will continue to monitor and adjust dosing as required. Follow-Up Labs: Trough Vancomycin - random 04/15/18 at 0600 Labs to be done on [date and time ordered]: Vancomycin random level on 04/15/18 at 0600
--- NOTE | 2018-04-14 08:13 | PCM.CONS.R ---
Consultation - Renal 04/14/18 PCP/ Referring MD: Requesting physician: Dr Graves Primary care physician: Shelby Pena Reason for Consultation:: KIMBERLEY - History of Present Illness History of Present Illness: The patient is a 82 year old F admitted via ED on 04/13/2018 from extended care facility with complaints of shortness of breath, leg swelling, and cough past few days. Patient is a poor historian, hard of hearing. Chart reviewed. Consulted for KIMBERLEY. Creatinine 4.1 on admit. She remains anuric but pt states she has been urinating a lot at [facility]. Baseline creatinine was 0.95 in February 2017. She had leukocytosis with fever, chills documented. Pancultured and started on iv cefepime and vanco. She had GPC on blood culture. She is on iv lasix. Patient was noted to have fever of 100 Fahrenheit with tachypnea on admission with RR of 33. CBC showed white cell count of 28.5 and platelets of 127. INR was supratherapeutic at 4 on coumadin for atrial fibrillation. She has a history of valvular disease. Chest x-ray showed pulmonary congestion with CT of the chest w/o iv contrast showing no obvious infiltrate or significant vascular congestion. She denies nausea, vomiting, diarrhea. Denies chest pain or shortness of breath despite mild dyspnea on exam. She is DNR [facility] according to hospitalist note. Discussed dialysis if renal fxn continues to decline. She did not want dialysis. - Allergies Allergies: Allergies No Known Allergies Allergy (Verified 04/13/18 11:41) - Current Medications Current Medications: Current Medications Acetaminophen (Tylenol) 1,000 mg PO [facility] Calamine/Phenol (Calmoseptine Ointment) 1 applic [facility]; Protocol Last Admin: 04/13/18 21:44 Dose: 1 applic Calcium Carbonate (Os-Roger 500) 1,000 mg PO DAILY@1200 [facility] Cholecalciferol (Vitamin D) 1,000 unit PO DAILY [facility] Docusate Sodium (Colace) 200 mg PO [facility]ID [facility] Last Admin: 04/13/18 21:44 Dose: 200 mg Ergocalciferol (Vitamin D) 50,000 unit PO Tu@1000 [facility] Ferrous Sulfate (Ferrous Sulfate) 325 mg PO DAILY@0800 [facility] Furosemide (Lasix) 40 mg IV BID@1000,1800 [facility] Last Admin: 04/13/18 17:54 Dose: 40 mg Vancomycin IV Pharmacy to Dose (1 ea/ Sodium Chloride) 500 mls @ 250 mls/hr IV X1 PRN; Protocol PRN Reason: Rx to Dose Cefepime HCl 1 gm/ Sodium (Chloride) 50 mls @ 100 mls/hr IV Q24 [facility] Last Admin: 04/13/18 21:45 Dose: 100 mls/hr Magnesium Hydroxide (Milk Of Magnesia) 30 ml PO DAILY PRN PRN PRN Reason: Constipation Magnesium Oxide (Mag-Ox 400) 400 [facility] Metoprolol Tartrate (Lopressor (Beta Noe)) 50 mg [facility] Last Admin: 04/13/18 21:43 Dose: 50 mg Pantoprazole Sodium (Protonix) 20 mg PO [facility]ID [facility] Last Admin: 04/13/18 21:45 Dose: 20 mg Sodium Chloride () 5 - 30 ml IV UD PRN PRN Reason: SALINE FLUSH Vancomycin HCl () 1 lab [facility]. DAILY@0600 [facility] Vancomycin HCl (Vancomycin Renal/Hd Dosing) 1 unit [facility] 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 Denies: Anorexia, Chills, Fever Eyes: Denies: Blurred vision HEENT: Reports: Difficulty Hearing. Denies: Difficulty Swallowing, Sore Throat Cardiovascular: Reports: Edema. Denies: Chest Pain, Syncope Respiratory: Reports: Cough, Shortness of Breath - per chart. Pt denies it Gastrointestinal: Denies: Abdominal Pain, Constipation, Diarrhea, Nausea, Vomiting Genitourinary: Reports: - - denied change in urine output. Denies: Dysuria Musculoskeletal: Denies: Joint stiffness, Joint swelling Skin: Denies: Rash Neurological: Reports: Balance problems - uses walker at [facility] Psychiatric: Denies: Depression Hematologic/ Lymphatic: Reports: Anemia Patient Problems: Active and Suspected Problems Shortness of breath (Acute) - Physical Exam General: Alert, Oriented x3, Cooperative, - - mild respiratory effort HEENT: EOMI Oral: Dry Mucosa Neck: Supple Lungs: Rales - faint rales in bases Cardiovascular: Irregular Rate - afib on monitor, No rub noted Abdomen: Bowel Sounds Present, Soft, Non Tender, Non-Distended Extremities: Edema - 2+, - - legs with SCD's applied Skin: - - mild erythema BLE Musculoskeletal: Muscle Wasting Lymphatic: - Neurological: - - generalized weakness, debilitated [facility] resident Psych/Mental Status: Normal Affect, Appropriate, Alert and oriented to time, place, person, mood and affect Vital Signs Temp Pulse Resp BP Pulse Ox 98.1 F 85 18 101/64 94 04/14/18 04:25 04/14/18 07:07 04/14/18 04:25 04/14/18 04:25 04/14/18 04:25 Oxygen Flow Rate (L/min) 1 Oxygen Delivery Method Nasal Cannula Weight: 110.223 kg Body Mass Index (BMI) 40.4 Intake and Output for Last 24 Hours 04/12/18 04/13/18 04/14/18 23:59 23:59 23:59 Intake Total 615 / 615 628 / 628 Output Total 100 / 100 Balance 615 / 615 528 / 528 Microbiology Past 72 Hours 04/13/18 15:41 Bacteria Detection (PCR) - Preliminary Blood Culture (Wb) - Anticubital Right Streptococcus agalactiae (B) Blood Culture - Preliminary 04/13/18 17:15 Blood Culture - Preliminary Blood Culture (Wb) - Anticubital Right Laboratory Tests Past 24 Hrs 04/13/18 04/13/18 04/13/18 12:05 12:05 12:05 WBC 28.5 H RBC 4.23 Hgb 12.1 Hct 37.9 MCV 89.6 MCH 28.6 MCHC 31.9 L RDW 15.0 H RDW Differential 48.9 H Plt Count 127 L MPV 11.0 Immature Gran % (Auto) 2.100 H Neut % (Auto) 93.2 H Lymph % (Auto) 1.9 L [place] % (Auto) 2.8 Eos % (Auto) 0.0 Baso % (Auto) 0.0 Absolute Neuts (auto) 26.5 H Absolute Lymphs (auto) 0.55 L Total Counted Not Reportable Nucleated RBC % 0.2 Differential Comment COMMENT Diff Path Review May foll Absolute Retic 0.05 PT 39.5 H INR 4.0 H* APTT 45.2 H Sodium 135 L Potassium 3.5 Chloride 91 L Carbon Dioxide 27.0 Anion Gap 17 H BUN 91 H Creatinine 4.12 H Estim Creat Clear Calc 7.69 Est GFR (MDRD) Af Amer 13 L Est GFR (MDRD) Non-Af 11 L BUN/Creatinine Ratio 22.1 H Glucose 91 Lactic Acid Calcium 8.8 Magnesium Total Bilirubin 1.00 AST 42 H ALT 19 Alkaline Phosphatase 168 H Troponin I 0.412 H B-Natriuretic Peptide Total Protein 7.8 Albumin 2.6 L Globulin 5.2 H Albumin/Globulin Ratio 0.5 L PTH Intact Urine Color Urine Clarity Urine pH Ur Specific [place] Urine Protein Urine Glucose (UA) Urine Ketones Urine Occult Blood Urine Nitrite Urine Bilirubin Urine Urobilinogen Ur Leukocyte Esterase Urine RBC Urine WBC Ur Squamous Epith Cells Urine Bacteria Urine Mucus Ur Random Sodium Urine Creatinine Random Vancomycin 04/13/18 04/13/18 04/13/18 12:05 12:50 14:40 WBC RBC Hgb Hct MCV MCH MCHC RDW RDW Differential Plt Count MPV Immature Gran % (Auto) Neut % (Auto) Lymph % (Auto) [place] % (Auto) Eos % (Auto) Baso % (Auto) Absolute Neuts (auto) Absolute Lymphs (auto) Total Counted Nucleated RBC % Differential Comment Diff Path Review Absolute Retic PT INR APTT Sodium Potassium Chloride Carbon Dioxide Anion Gap BUN Creatinine Estim Creat Clear Calc Est GFR (MDRD) Af Amer Est GFR (MDRD) Non-Af BUN/Creatinine Ratio Glucose Lactic Acid 3.1 H Calcium Magnesium Total Bilirubin AST ALT Alkaline Phosphatase Troponin I B-Natriuretic Peptide 748.0 H Total Protein Albumin Globulin Albumin/Globulin Ratio PTH Intact Urine Color Yellow Urine Clarity Sl. Cloudy Urine pH 5.0 Ur Specific [place] 1.020 Urine Protein 30 H Urine Glucose (UA) Normal Urine Ketones Negative Urine Occult Blood 150 H Urine Nitrite Positive H Urine Bilirubin 3 H Urine Urobilinogen 1 H Ur Leukocyte Esterase 500 H Urine RBC 0 SEEN Urine WBC 0-5 SEEN Ur Squamous Epith Cells 0-5 SEEN Urine Bacteria 3+ Urine Mucus 0 SEEN Ur Random Sodium Urine Creatinine Random Vancomycin 04/13/18 04/13/18 04/13/18 17:15 17:15 18:40 WBC RBC Hgb Hct MCV MCH MCHC RDW RDW Differential Plt Count MPV Immature Gran % (Auto) Neut % (Auto) Lymph % (Auto) [place] % (Auto) Eos % (Auto) Baso % (Auto) Absolute Neuts (auto) Absolute Lymphs (auto) Total Counted Nucleated RBC % Differential Comment Diff Path Review Absolute Retic PT INR APTT Sodium Potassium Chloride Carbon Dioxide Anion Gap BUN Creatinine Estim Creat Clear Calc Est GFR (MDRD) Af Amer Est GFR (MDRD) Non-Af BUN/Creatinine Ratio Glucose Lactic Acid 1.8 Calcium Magnesium Total Bilirubin AST ALT Alkaline Phosphatase Troponin I 0.410 H B-Natriuretic Peptide Total Protein Albumin Globulin Albumin/Globulin Ratio PTH Intact Urine Color Urine Clarity Urine pH Ur Specific [place] Urine Protein Urine Glucose (UA) Urine Ketones Urine Occult Blood Urine Nitrite Urine Bilirubin Urine Urobilinogen Ur Leukocyte Esterase Urine RBC Urine WBC Ur Squamous Epith Cells Urine Bacteria Urine Mucus Ur Random Sodium Urine Creatinine 194.00 Random Vancomycin 04/13/18 04/13/18 04/13/18 18:40 20:15 20:15 WBC RBC Hgb Hct MCV MCH MCHC RDW RDW Differential Plt Count MPV Immature Gran % (Auto) Neut % (Auto) Lymph % (Auto) [place] % (Auto) Eos % (Auto) Baso % (Auto) Absolute Neuts (auto) Absolute Lymphs (auto) Total Counted Nucleated RBC % Differential Comment Diff Path Review Absolute Retic PT INR APTT Sodium Potassium Chloride Carbon Dioxide Anion Gap BUN Creatinine Estim Creat Clear Calc Est GFR (MDRD) Af Amer Est GFR (MDRD) Non-Af BUN/Creatinine Ratio Glucose Lactic Acid Calcium Magnesium 2.5 Total Bilirubin AST ALT Alkaline Phosphatase Troponin I 0.325 H B-Natriuretic Peptide Total Protein Albumin Globulin Albumin/Globulin Ratio PTH Intact Urine Color Urine Clarity Urine pH Ur Specific [place] Urine Protein Urine Glucose (UA) Urine Ketones Urine Occult Blood Urine Nitrite Urine Bilirubin Urine Urobilinogen Ur Leukocyte Esterase Urine RBC Urine WBC Ur Squamous Epith Cells Urine Bacteria Urine Mucus Ur Random Sodium 17 Urine Creatinine Random Vancomycin 04/14/18 04/14/18 04/14/18 05:55 05:55 05:55 WBC 32.7 H* RBC 3.98 L Hgb 11.3 L Hct 36.4 L MCV 91.5 MCH 28.4 MCHC 31.0 L RDW 15.3 H RDW Differential 51.1 H Plt Count 114 L MPV 11.0 Immature Gran % (Auto) 0.400 Neut % (Auto) 90.7 H Lymph % (Auto) 4.2 L [place] % (Auto) 4.6 Eos % (Auto) 0.0 Baso % (Auto) 0.1 Absolute Neuts (auto) 29.7 H Absolute Lymphs (auto) 1.37 Total Counted Pending Nucleated RBC % Pending Differential Comment Diff Path Review Absolute Retic Pending PT 46.1 H INR 4.9 H* APTT Sodium 136 Potassium 3.9 Chloride 95 L Carbon Dioxide 24.0 Anion Gap 17 H BUN 105 H* Creatinine 4.28 H Estim Creat Clear Calc 9.28 Est GFR (MDRD) Af Amer 13 L Est GFR (MDRD) Non-Af 11 L BUN/Creatinine Ratio 24.5 H Glucose 86 Lactic Acid Calcium 8.6 Magnesium Total Bilirubin AST ALT Alkaline Phosphatase Troponin I B-Natriuretic Peptide Total Protein Albumin Globulin Albumin/Globulin Ratio PTH Intact Urine Color Urine Clarity Urine pH Ur Specific [place] Urine Protein Urine Glucose (UA) Urine Ketones Urine Occult Blood Urine Nitrite Urine Bilirubin Urine Urobilinogen Ur Leukocyte Esterase Urine RBC Urine WBC Ur Squamous Epith Cells Urine Bacteria Urine Mucus Ur Random Sodium Urine Creatinine Random Vancomycin 04/14/18 04/14/18 05:55 05:55 WBC RBC Hgb Hct MCV MCH MCHC RDW RDW Differential Plt Count MPV Immature Gran % (Auto) Neut % (Auto) Lymph % (Auto) [place] % (Auto) Eos % (Auto) Baso % (Auto) Absolute Neuts (auto) Absolute Lymphs (auto) Total Counted Nucleated RBC % Differential Comment Diff Path Review Absolute Retic PT INR APTT Sodium Potassium Chloride Carbon Dioxide Anion Gap BUN Creatinine Estim Creat Clear Calc Est GFR (MDRD) Af Amer Est GFR (MDRD) Non-Af BUN/Creatinine Ratio Glucose Lactic Acid Calcium Magnesium Total Bilirubin AST ALT Alkaline Phosphatase Troponin I B-Natriuretic Peptide Total Protein Albumin Globulin Albumin/Globulin Ratio PTH Intact Pending Urine Color Urine Clarity Urine pH Ur Specific [place] Urine Protein Urine Glucose (UA) Urine Ketones Urine Occult Blood Urine Nitrite Urine Bilirubin Urine Urobilinogen Ur Leukocyte Esterase Urine RBC Urine WBC Ur Squamous Epith Cells Urine Bacteria Urine Mucus Ur Random Sodium Urine Creatinine Random Vancomycin 17.1 H Clinical Impression(s) from Imaging Studies Chest X-Ray 04/13/18 12:55 IMPRESSION: 1. Prominent markings consistent with mild pulmonary venous congestion. 2. Status post mediastinotomy and valve replacement. Electronically Signed: Elijah Milner MD at 13:23 EDT Tel , Service support , Chest CT 04/13/18 13:35 IMPRESSION: Chronic interstitial lung changes without superimposed acute alveolar disease. Cardiomegaly. Multiple remote thoracic and lumbar compression fractures, including T5, T6, T7, and T12. Moderate retropulsion at the T12 level. Electronically Signed: Dean Medina MD at 15:29 EDT Tel , Service support , Renal Ultrasound 04/13/18 19:21 IMPRESSION: There is mild cortical thinning of the kidneys Urinary bladder aorta and IVC cannot be seen because of overlying bowel gas. Electronically Signed: Chau Mayfield MD at 21:35 EDT , Service support , Assessment/Plan All Active Problems Shortness of breath (Acute) Fracture of femoral neck, right, closed (Acute) Pre-op evaluation (Acute) 1. KIMBERLEY likely due to ATN, sepsis. Currently anuric with rising creatinine at 4.2. Baseline creatinine 0.95 in Feb 2017. FeNa <1% to suggest prerenal event however has mild diffuse edema with small pleural effusion likely due to pulmonary hypertension. Discussed with pt about dialysis. She is DNR [facility] and does not want dialysis. Spoke with pt daughter over telephone re: renal status. Will continue with antibx support, gentle hydration. Currently on lasix without diuretic effect. Oxygenation stable with CT chest without significant edema. 2. Sepsis with strep in blood. Urine c/s showing GNR. Continue with iv antibx. WBC remains elevated. Lactic acidosis improving 3. UTI c/s with GNR. 4. Chronic atrial fibrillation on coumadin at [facility], on hold for Supratherapeutic INR. 5. Pulmonary hypertension, valvular disease on chronic diuretics spironolactone and bumex at [facility]. 6. NSTEMI +troponins, cardiology consulted 6. Debilitation, [facility] resident
--- NOTE | 2018-04-14 08:19 | CON.PCM_ITS ---
Consultation - Renal 04/14/18 PCP/ Referring MD: Requesting physician: Dr Graves Primary care physician: Shelby Pena Reason for Consultation:: KIMBERLEY - History of Present Illness History of Present Illness: The patient is a 82 year old F admitted via ED on 04/13/2018 from extended care facility with complaints of shortness of breath, leg swelling, and cough past few days. Patient is a poor historian, hard of hearing. Chart reviewed. Consulted for KIMBERLEY. Creatinine 4.1 on admit. She remains anuric but pt states she [facility]. Baseline creatinine was 0.95 in February 2017. She had leukocytosis with fever, chills documented. Pancultured and started on iv cefepime and vanco. She had GPC on blood culture. She is on iv lasix. Patient was noted to have fever of 100 Fahrenheit with tachypnea on admission with RR of 33. CBC showed white cell count of 28.5 and platelets of 127. INR was supratherapeutic at 4 on coumadin for atrial fibrillation. She has a history of valvular disease. Chest x-ray showed pulmonary congestion with CT of the chest w/o iv contrast showing no obvious infiltrate or significant vascular congestion. She denies nausea, vomiting, diarrhea. Denies chest pain or shortness of breath despite mild dyspnea on exam. She is DNR [facility] according to hospitalist note. Discussed dialysis if renal fxn continues to decline. She did not want dialysis. - Allergies Allergies: Allergies No Known Allergies Allergy (Verified 04/13/18 11:41) - Current Medications Current Medications: Current Medications Acetaminophen (Tylenol) 1,000 mg PO DINNER [facility] Calamine/Phenol (Calmoseptine Ointment) 1 applic TOPICAL BID [facility]; Protocol Last Admin: 04/13/18 21:44 Dose: 1 applic Calcium Carbonate (Os-Roger 500) 1,000 mg PO DAILY@1200 [facility] Cholecalciferol (Vitamin D) 1,000 unit PO DAILY [facility] Docusate Sodium (Colace) 200 mg PO BID [facility] Last Admin: 04/13/18 21:44 Dose: 200 mg Ergocalciferol (Vitamin D) 50,000 unit PO Tu@1000 [facility] Ferrous Sulfate (Ferrous Sulfate) 325 mg PO DAILY@0800 [facility] Furosemide (Lasix) 40 mg IV BID@1000,1800 [facility] Last Admin: 04/13/18 17:54 Dose: 40 mg Vancomycin IV Pharmacy to Dose (1 ea/ Sodium Chloride) 500 mls @ 250 mls/hr IV X1 PRN; Protocol PRN Reason: Rx to Dose Cefepime HCl 1 gm/ Sodium (Chloride) 50 mls @ 100 mls/hr IV Q24 [facility] Last Admin: 04/13/18 21:45 Dose: 100 mls/hr Magnesium Hydroxide (Milk Of Magnesia) 30 ml PO DAILY PRN PRN PRN Reason: Constipation Magnesium Oxide (Mag-Ox 400) 400 mg PO QODAY [facility] Metoprolol Tartrate (Lopressor (Beta Noe)) 50 mg PO BID [facility] Last Admin: 04/13/18 21:43 Dose: 50 mg Pantoprazole Sodium (Protonix) 20 mg PO BID [facility] Last Admin: 04/13/18 21:45 Dose: 20 mg Sodium Chloride () 5 - 30 ml IV UD PRN PRN Reason: SALINE FLUSH Vancomycin HCl () 1 lab MISCELL. DAILY@0600 [facility] Vancomycin HCl (Vancomycin Renal/Hd Dosing) 1 unit MISCELL. 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 Denies: Anorexia, Chills, Fever Eyes: Denies: Blurred vision HEENT: Reports: Difficulty Hearing. Denies: Difficulty Swallowing, Sore Throat Cardiovascular: Reports: Edema. Denies: Chest Pain, Syncope Respiratory: Reports: Cough, Shortness of Breath - per chart. Pt denies it Gastrointestinal: Denies: Abdominal Pain, Constipation, Diarrhea, Nausea, Vomiting Genitourinary: Reports: - - denied change in urine output. Denies: Dysuria Musculoskeletal: Denies: Joint stiffness, Joint swelling Skin: Denies: Rash Neurological: Reports: Balance problems - [facility] Psychiatric: Denies: Depression Hematologic/ Lymphatic: Reports: Anemia Patient Problems: Active and Suspected Problems Shortness of breath (Acute) - Physical Exam General: Alert, Oriented x3, Cooperative, - - mild respiratory effort HEENT: EOMI Oral: Dry Mucosa Neck: Supple Lungs: Rales - faint rales in bases Cardiovascular: Irregular Rate - afib on monitor, No rub noted Abdomen: Bowel Sounds Present, Soft, Non Tender, Non-Distended Extremities: Edema - 2+, - - legs with SCD's applied Skin: - - mild erythema BLE Musculoskeletal: Muscle Wasting Lymphatic: - Neurological: - - generalized weakness, debilitated [facility] Psych/Mental Status: Normal Affect, Appropriate, Alert and oriented to time, place, person, mood and affect Vital Signs Temp Pulse Resp BP Pulse Ox 98.1 F 85 18 101/64 94 04/14/18 04:25 04/14/18 07:07 04/14/18 04:25 04/14/18 04:25 04/14/18 04:25 Oxygen Flow Rate (L/min) 1 Oxygen Delivery Method Nasal Cannula Weight: 110.223 kg Body Mass Index (BMI) 40.4 Intake and Output for Last 24 Hours 04/12/18 04/13/18 04/14/18 23:59 23:59 23:59 Intake Total 615 / 615 628 / 628 Output Total 100 / 100 Balance 615 / 615 528 / 528 Microbiology Past 72 Hours 04/13/18 15:41 Bacteria Detection (PCR) - Preliminary Blood Culture (Wb) - Anticubital Right Streptococcus agalactiae (B) Blood Culture - Preliminary 04/13/18 17:15 Blood Culture - Preliminary Blood Culture (Wb) - Anticubital Right Laboratory Tests Past 24 Hrs 04/13/18 04/13/18 04/13/18 12:05 12:05 12:05 WBC 28.5 H RBC 4.23 Hgb 12.1 Hct 37.9 MCV 89.6 MCH 28.6 MCHC 31.9 L RDW 15.0 H RDW Differential 48.9 H Plt Count 127 L MPV 11.0 Immature Gran % (Auto) 2.100 H Neut % (Auto) 93.2 H Lymph % (Auto) 1.9 L [place] % (Auto) 2.8 Eos % (Auto) 0.0 Baso % (Auto) 0.0 Absolute Neuts (auto) 26.5 H Absolute Lymphs (auto) 0.55 L Total Counted Not Reportable Nucleated RBC % 0.2 Differential Comment COMMENT Diff Path Review May foll Absolute Retic 0.05 PT 39.5 H INR 4.0 H* APTT 45.2 H Sodium 135 L Potassium 3.5 Chloride 91 L Carbon Dioxide 27.0 Anion Gap 17 H BUN 91 H Creatinine 4.12 H Estim Creat Clear Calc 7.69 Est GFR (MDRD) Af Amer 13 L Est GFR (MDRD) Non-Af 11 L BUN/Creatinine Ratio 22.1 H Glucose 91 Lactic Acid Calcium 8.8 Magnesium Total Bilirubin 1.00 AST 42 H ALT 19 Alkaline Phosphatase 168 H Troponin I 0.412 H B-Natriuretic Peptide Total Protein 7.8 Albumin 2.6 L Globulin 5.2 H Albumin/Globulin Ratio 0.5 L PTH Intact Urine Color Urine Clarity Urine pH Ur Specific [place] Urine Protein Urine Glucose (UA) Urine Ketones Urine Occult Blood Urine Nitrite Urine Bilirubin Urine Urobilinogen Ur Leukocyte Esterase Urine RBC Urine WBC Ur Squamous Epith Cells Urine Bacteria Urine Mucus Ur Random Sodium Urine Creatinine Random Vancomycin 04/13/18 04/13/18 04/13/18 12:05 12:50 14:40 WBC RBC Hgb Hct MCV MCH MCHC RDW RDW Differential Plt Count MPV Immature Gran % (Auto) Neut % (Auto) Lymph % (Auto) [place] % (Auto) Eos % (Auto) Baso % (Auto) Absolute Neuts (auto) Absolute Lymphs (auto) Total Counted Nucleated RBC % Differential Comment Diff Path Review Absolute Retic PT INR APTT Sodium Potassium Chloride Carbon Dioxide Anion Gap BUN Creatinine Estim Creat Clear Calc Est GFR (MDRD) Af Amer Est GFR (MDRD) Non-Af BUN/Creatinine Ratio Glucose Lactic Acid 3.1 H Calcium Magnesium Total Bilirubin AST ALT Alkaline Phosphatase Troponin I B-Natriuretic Peptide 748.0 H Total Protein Albumin Globulin Albumin/Globulin Ratio PTH Intact Urine Color Yellow Urine Clarity Sl. Cloudy Urine pH 5.0 Ur Specific [place] 1.020 Urine Protein 30 H Urine Glucose (UA) Normal Urine Ketones Negative Urine Occult Blood 150 H Urine Nitrite Positive H Urine Bilirubin 3 H Urine Urobilinogen 1 H Ur Leukocyte Esterase 500 H Urine RBC 0 SEEN Urine WBC 0-5 SEEN Ur Squamous Epith Cells 0-5 SEEN Urine Bacteria 3+ Urine Mucus 0 SEEN Ur Random Sodium Urine Creatinine Random Vancomycin 04/13/18 04/13/18 04/13/18 17:15 17:15 18:40 WBC RBC Hgb Hct MCV MCH MCHC RDW RDW Differential Plt Count MPV Immature Gran % (Auto) Neut % (Auto) Lymph % (Auto) [place] % (Auto) Eos % (Auto) Baso % (Auto) Absolute Neuts (auto) Absolute Lymphs (auto) Total Counted Nucleated RBC % Differential Comment Diff Path Review Absolute Retic PT INR APTT Sodium Potassium Chloride Carbon Dioxide Anion Gap BUN Creatinine Estim Creat Clear Calc Est GFR (MDRD) Af Amer Est GFR (MDRD) Non-Af BUN/Creatinine Ratio Glucose Lactic Acid 1.8 Calcium Magnesium Total Bilirubin AST ALT Alkaline Phosphatase Troponin I 0.410 H B-Natriuretic Peptide Total Protein Albumin Globulin Albumin/Globulin Ratio PTH Intact Urine Color Urine Clarity Urine pH Ur Specific [place] Urine Protein Urine Glucose (UA) Urine Ketones Urine Occult Blood Urine Nitrite Urine Bilirubin Urine Urobilinogen Ur Leukocyte Esterase Urine RBC Urine WBC Ur Squamous Epith Cells Urine Bacteria Urine Mucus Ur Random Sodium Urine Creatinine 194.00 Random Vancomycin 04/13/18 04/13/18 04/13/18 18:40 20:15 20:15 WBC RBC Hgb Hct MCV MCH MCHC RDW RDW Differential Plt Count MPV Immature Gran % (Auto) Neut % (Auto) Lymph % (Auto) [place] % (Auto) Eos % (Auto) Baso % (Auto) Absolute Neuts (auto) Absolute Lymphs (auto) Total Counted Nucleated RBC % Differential Comment Diff Path Review Absolute Retic PT INR APTT Sodium Potassium Chloride Carbon Dioxide Anion Gap BUN Creatinine Estim Creat Clear Calc Est GFR (MDRD) Af Amer Est GFR (MDRD) Non-Af BUN/Creatinine Ratio Glucose Lactic Acid Calcium Magnesium 2.5 Total Bilirubin AST ALT Alkaline Phosphatase Troponin I 0.325 H B-Natriuretic Peptide Total Protein Albumin Globulin Albumin/Globulin Ratio PTH Intact Urine Color Urine Clarity Urine pH Ur Specific [place] Urine Protein Urine Glucose (UA) Urine Ketones Urine Occult Blood Urine Nitrite Urine Bilirubin Urine Urobilinogen Ur Leukocyte Esterase Urine RBC Urine WBC Ur Squamous Epith Cells Urine Bacteria Urine Mucus Ur Random Sodium 17 Urine Creatinine Random Vancomycin 04/14/18 04/14/18 04/14/18 05:55 05:55 05:55 WBC 32.7 H* RBC 3.98 L Hgb 11.3 L Hct 36.4 L MCV 91.5 MCH 28.4 MCHC 31.0 L RDW 15.3 H RDW Differential 51.1 H Plt Count 114 L MPV 11.0 Immature Gran % (Auto) 0.400 Neut % (Auto) 90.7 H Lymph % (Auto) 4.2 L [place] % (Auto) 4.6 Eos % (Auto) 0.0 Baso % (Auto) 0.1 Absolute Neuts (auto) 29.7 H Absolute Lymphs (auto) 1.37 Total Counted Pending Nucleated RBC % Pending Differential Comment Diff Path Review Absolute Retic Pending PT 46.1 H INR 4.9 H* APTT Sodium 136 Potassium 3.9 Chloride 95 L Carbon Dioxide 24.0 Anion Gap 17 H BUN 105 H* Creatinine 4.28 H Estim Creat Clear Calc 9.28 Est GFR (MDRD) Af Amer 13 L Est GFR (MDRD) Non-Af 11 L BUN/Creatinine Ratio 24.5 H Glucose 86 Lactic Acid Calcium 8.6 Magnesium Total Bilirubin AST ALT Alkaline Phosphatase Troponin I B-Natriuretic Peptide Total Protein Albumin Globulin Albumin/Globulin Ratio PTH Intact Urine Color Urine Clarity Urine pH Ur Specific [place] Urine Protein Urine Glucose (UA) Urine Ketones Urine Occult Blood Urine Nitrite Urine Bilirubin Urine Urobilinogen Ur Leukocyte Esterase Urine RBC Urine WBC Ur Squamous Epith Cells Urine Bacteria Urine Mucus Ur Random Sodium Urine Creatinine Random Vancomycin 04/14/18 04/14/18 05:55 05:55 WBC RBC Hgb Hct MCV MCH MCHC RDW RDW Differential Plt Count MPV Immature Gran % (Auto) Neut % (Auto) Lymph % (Auto) [place] % (Auto) Eos % (Auto) Baso % (Auto) Absolute Neuts (auto) Absolute Lymphs (auto) Total Counted Nucleated RBC % Differential Comment Diff Path Review Absolute Retic PT INR APTT Sodium Potassium Chloride Carbon Dioxide Anion Gap BUN Creatinine Estim Creat Clear Calc Est GFR (MDRD) Af Amer Est GFR (MDRD) Non-Af BUN/Creatinine Ratio Glucose Lactic Acid Calcium Magnesium Total Bilirubin AST ALT Alkaline Phosphatase Troponin I B-Natriuretic Peptide Total Protein Albumin Globulin Albumin/Globulin Ratio PTH Intact Pending Urine Color Urine Clarity Urine pH Ur Specific [place] Urine Protein Urine Glucose (UA) Urine Ketones Urine Occult Blood Urine Nitrite Urine Bilirubin Urine Urobilinogen Ur Leukocyte Esterase Urine RBC Urine WBC Ur Squamous Epith Cells Urine Bacteria Urine Mucus Ur Random Sodium Urine Creatinine Random Vancomycin 17.1 H Clinical Impression(s) from Imaging Studies Chest X-Ray 04/13/18 12:55 IMPRESSION: 1. Prominent markings consistent with mild pulmonary venous congestion. 2. Status post mediastinotomy and valve replacement. Electronically Signed: Elijah Milner MD at 13:23 EDT Tel , Service support , Chest CT 04/13/18 13:35 IMPRESSION: Chronic interstitial lung changes without superimposed acute alveolar disease. Cardiomegaly. Multiple remote thoracic and lumbar compression fractures, including T5, T6, T7, and T12. Moderate retropulsion at the T12 level. Electronically Signed: Dean Medina MD at 15:29 EDT Tel , Service support , Renal Ultrasound 04/13/18 19:21 IMPRESSION: There is mild cortical thinning of the kidneys Urinary bladder aorta and IVC cannot be seen because of overlying bowel gas. Electronically Signed: Chau Mayfield MD at 21:35 EDT , Service support , Assessment/Plan All Active Problems Shortness of breath (Acute) Fracture of femoral neck, right, closed (Acute) Pre-op evaluation (Acute) 1. KIMBERLEY likely due to ATN, sepsis. Currently anuric with rising creatinine at 4.2. Baseline creatinine 0.95 in Feb 2017. FeNa <1% to suggest prerenal event however has mild diffuse edema with small pleural effusion likely due to pulmonary hypertension. Discussed with pt about dialysis. She is DNR [facility] and does not want dialysis. Spoke with pt daughter over telephone re: renal status. Will continue with antibx support, gentle hydration. Currently on lasix without diuretic effect. Oxygenation stable with CT chest without significant edema. 2. Sepsis with strep in blood. Urine c/s showing GNR. Continue with iv antibx. WBC remains elevated. Lactic acidosis improving 3. UTI c/s with GNR. 4. Chronic atrial fibrillation on coumadin at [facility], on hold for Supratherapeutic INR. 5. Pulmonary hypertension, valvular disease on chronic diuretics spironolactone and bumex at [facility]. 6. NSTEMI +troponins, cardiology consulted 6. Debilitation, [facility] resident
[2018-04-14 08:35] LABS: Differential Comment SCANNED
[2018-04-14] MEDS: Furosemide 40 MG/4 ML Vial IV (09:40)
[2018-04-14] MEDS: 0.9% NaCl Peripheral Flush Adult/Peds IV (09:40)
[2018-04-14] MEDS: Cefepime 1 GM in 0.9% NS 50 ML Minibag Q12 IV (09:43)
[2018-04-14] MEDS: Ferrous Sulfate 325 MG Tablet PO (09:44)
[2018-04-14] MEDS: Menthol/Lanolin/Calamine/Znox 113 GM Tube 1 APPLIC TOPICAL ×2 (09:44→21:14)
[2018-04-14] MEDS: Pantoprazole Sodium 20 MG Tablet PO ×2 (09:45→21:14)
[2018-04-14] MEDS: Metoprolol Tartrate 50 MG Tablet PO ×2 (09:45→21:14)
[2018-04-14] MEDS: Docusate Sodium 100 MG Capsule 200 MG PO (09:45)
--- NOTE | 2018-04-14 11:14 | NURSING ---
called [facility] to obtain advanced directives. None are on file there. aware.
--- NOTE | 2018-04-14 11:33 | PCM.CONS.C ---
Problem List (1) Lymphedema of both lower extremities Status: Chronic (2) Status post aortic valve replacement Status: Chronic (3) Pulmonary hypertension Status: Chronic (4) Chronic kidney disease, stage III (moderate) Status: Chronic (5) Atrial fibrillation Status: Chronic (6) On anticoagulant therapy Status: Chronic (7) HTN (hypertension) Status: Chronic Qualifiers: Hypertension type: unspecified Qualified Code(s): I10 - Essential (primary) hypertension (8) CAD (coronary artery disease) Status: Chronic Reason for Consult Date of Consultation: 04/14/18 Reason for Consultation: Coronary artery disease, atrial fibrillation, aortic valve replacement, hypertension, coronary disease History of Present Illness: The patient is a 82 year old F, somewhat hard of hearing, who lives in an extended care facility, nondiabetic, with a history of atrial fibrillation on chronic Coumadin therapy for the past 10 years, coronary artery disease status post angioplasty about 10 years ago at [facility], non-smoker, history of bypass surgery x3 about 6 years ago with reportedly aortic valve replacement. Patient states that she has never had a CVA. She lives in an assisted living center, and walks with a walker. The patient reportedly had developed a low-grade fever of 100, as well as shortness of breath, tachycardia, was confused and running into melchor with her scooter at the assisted living center. Patient was brought to the emergency room where she is was found to be in atrial fibrillation with rapid ventricular response, tachypnea, confused, and apparently had bilateral lower extremity cellulitis and a possible UTI. Blood cultures thus far have developed gram-positive cocci and she has been treated with antibiotic therapy IV with both cefepime and vancomycin. This morning the patient feels much better, and is much more lucid. This is confirmed by her family. Patient apparently has acute renal failure as her creatinine was 0.95 in February, and now is above 4.0. In addition she is supratherapeutic on her INR. She denies any bleeding issues. [] Past Medical History Allergies/Adverse Reactions: Allergies No Known Allergies Allergy (Verified 04/13/18 11:41) Home Medications: Ambulatory Orders Medication Instructions Recorded Ferrous Sulfate 325 mg PO DAILY 12/23/15 Metoprolol Tartrate [Lopressor 50 mg PO BID 12/23/15 (beta jignesh)] Ergocalciferol [Vitamin D] 50,000 unit PO TU 01/13/16 Acetaminophen [Mapap] 1,000 mg PO DINNER 02/08/17 Cholecalciferol (VIT D3) [Vitamin 1,000 unit PO DAILY #30 tablet 02/11/17 D3] Docusate Sodium [Colace] 200 mg PO BID #60 capsule 02/11/17 Bumetanide 1 mg PO DAILY #30 02/14/17 Bumetanide [Bumex] 2 mg NG LUNCH 04/13/18 Calcium (Elemental) [Os-Roger 500] 1,000 mg PO DAILY 04/13/18 Magnesium Oxide [Mag-Ox 400] 400 mg PO QODAY 04/13/18 Omeprazole [Prilosec] 20 mg PO BID 04/13/18 Spironolactone [Aldactone] 25 mg PO BID 04/13/18 Warfarin Sodium [Coumadin] 4 mg PO [id number] 04/13/18 Warfarin [Coumadin ([facility]KC)] 6 mg PO DILLON@1700 04/13/18 Past Medical History (Chronic Problems): Chronic Problems Lymphedema of both lower extremities (Chronic) 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) Chronic anemia (Chronic) Status post aortic valve replacement (Chronic) Pulmonary hypertension (Chronic) Chronic kidney disease, stage III (moderate) (Chronic) Atrial fibrillation (Chronic) On anticoagulant therapy (Chronic) 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 Denies: Fatigue, Night Sweats Cardiovascular: Reports: Shortness of Breath, Peripheral Edema, Palpitations. Denies: Chest Discomfort, Orthopnea, PND, Lightheadedness, Dizziness, Near Syncope, Syncope Respiratory: Denies: Cough, Sputum Production, Hemoptysis Gastrointestinal: Denies: Hematemesis, Hematochezia, Melena Genitourinary: Denies: Dysuria, Hematuria Skin: Denies: Rash Subjectve: Patient awake, alert, Objective: Vital Signs Temp Pulse Resp BP Pulse Ox 97.8 F 76 20 H 108/47 L 95 04/14/18 10:25 04/14/18 10:59 04/14/18 10:25 04/14/18 10:25 04/14/18 10:25 Oxygen Flow Rate (L/min) 3 Oxygen Delivery Method Nasal Cannula Weight: 243 lb Body Mass Index (BMI) 40.4 Intake and Output for Last 24 Hours 04/12/18 04/13/18 04/14/18 23:59 23:59 23:59 Intake Total 615 / 615 628 / 628 Output Total 100 / 100 Balance 615 / 615 528 / 528 General: Awake, Alert, Oriented x 3 HEENT: PERRL, EOMI, Sclera Non Icteric Neck: Supple, Good ROM, No Lymph Node Enlargement Lungs: Clear to auscultation Cardiovascular: Regular Rhythm, Normal S1, Normal S2, No Murmurs, No Rubs, No Gallops Vascular: No Carotid Bruits, Normal Femoral Pulses, Normal Radial Pulses, Normal Dorsalis Pedal Pulse, Normal Posterior Tibial Pulses Abdomen: Bowel Sounds Present, Soft, Non Tender, No HSM, No Organomegaly Extremities: No Cyanosis, No Clubbing, Bilateral Edema +2 Neurological: No Focal Motor or Sensory Deficit 04/13/18 12:05: Sodium 135 L, Potassium 3.5, Chloride 91 L, Carbon Dioxide 27.0, Anion Gap 17 H, BUN 91 H, Creatinine 4.12 H, Est GFR (MDRD) Af Amer 13 L, Est GFR (MDRD) Non-Af 11 L, BUN/Creatinine Ratio 22.1 H, Glucose 91, Calcium 8.8, Total Bilirubin 1.00, Troponin I 0.412 H 04/13/18 12:05: WBC 28.5 H, RBC 4.23, Hgb 12.1, Hct 37.9, MCV 89.6, MCH 28.6, MCHC 31.9 L, RDW 15.0 H, RDW Differential 48.9 H, Plt Count 127 L, MPV 11.0, Immature Gran % (Auto) 2.100 H, Neut % (Auto) 93.2 H, Lymph % (Auto) 1.9 L, [place] % (Auto) 2.8, Eos % (Auto) 0.0, Baso % (Auto) 0.0, Absolute Neuts (auto) 26.5 H, Total Counted Not Reportable, Nucleated RBC % 0.2 04/13/18 12:05: PT 39.5 H, INR 4.0 H*, APTT 45.2 H 04/13/18 12:05: Lactic Acid 3.1 H 04/13/18 12:50: B-Natriuretic Peptide 748.0 H 04/13/18 14:40: Urine Color Yellow, Urine Clarity Sl. Cloudy, Urine pH 5.0, Ur Specific [place] 1.020, Urine Protein 30 H, Urine Glucose (UA) Normal, Urine Ketones Negative, Urine Occult Blood 150 H, Urine Nitrite Positive H, Urine Bilirubin 3 H, Urine Urobilinogen 1 H, Ur Leukocyte Esterase 500 H, Urine RBC 0 SEEN, Urine WBC 0-5 SEEN 04/13/18 17:15: Lactic Acid 1.8 04/13/18 17:15: Troponin I 0.410 H 04/13/18 20:15: Troponin I 0.325 H 04/13/18 20:15: Magnesium 2.5 04/14/18 05:55: WBC 32.7 H*, RBC 3.98 L, Hgb 11.3 L, Hct 36.4 L, MCV 91.5, MCH 28.4, MCHC 31.0 L, RDW 15.3 H, RDW Differential 51.1 H, Plt Count 114 L, MPV 11.0, Immature Gran % (Auto) 0.400, Neut % (Auto) 90.7 H, Lymph % (Auto) 4.2 L, [place] % (Auto) 4.6, Eos % (Auto) 0.0, Baso % (Auto) 0.1, Absolute Neuts (auto) 29.7 H, Total Counted Not Reportable, Nucleated RBC % 0.2 04/14/18 05:55: Sodium 136, Potassium 3.9, Chloride 95 L, Carbon Dioxide 24.0, Anion Gap 17 H, BUN 105 H*, Creatinine 4.28 H, Est GFR (MDRD) Af Amer 13 L, Est GFR (MDRD) Non-Af 11 L, BUN/Creatinine Ratio 24.5 H, Glucose 86, Calcium 8.6 04/14/18 05:55: PT 46.1 H, INR 4.9 H* Rhythm: EKG: ECHO: Stress Test: Cardiac Cath: PCI: CT Surgery: Holter monitor: EPS: PPM: CXR: Chest CT Scan: Assessment/Plan 1. Atrial fibrillation: The patient presents with what appears to be an acute infection with gram-positive cocci in her urine, bilateral cellulitis, and minimal infiltrates on chest x-ray. She also presents with acute renal failure, and atrial fibrillation with rapid ventricular response on chronic Coumadin therapy. At this point I would recommend holding her Coumadin as she is supratherapeutic with her INR. Would recommend obtaining a 2D echo with Doppler, and a dobutamine echocardiogram tomorrow morning to assess for coronary ischemia. Should the patient require diagnostic coronary angiogram, my preference would be that she resolve her acute renal failure prior to any IV contrast dye exposure. She did undergo a CT scan last evening but without contrast. She most likely requires IV fluid resuscitation, as her BUN and creatinine appear to show her to be in prerenal failure. Appreciate renal consult, and continue IV fluids as well as Ace catheter for urine output surveillance. Would recommend holding her IV Lasix at this time given her prerenal status. She is supposedly had normal creatinine in February 2018. Recommend continuing metoprolol therapy for heart rate control and holding it should she become hypotensive. 2. Coronary artery disease: Patient is a history of coronary bypass surgery as well as suppose it aortic valve replacement. She will undergo a 2D echo with Doppler tomorrow as well as a dobutamine stress echocardiogram. If this is grossly abnormal for ischemia, she may require diagnostic coronary angiogram prior once her creatinine has improved. 3. Aortic valve replacement: Blood cultures are pending. We await a 2D echo with Doppler. Hopefully she has no evidence of endocarditis. She has no outward signs of endocarditis but does have chronic cellulitis in her lower extremities which may be a nidus for infection. Continue antibiotic therapy IV. 4. Thank you very much for the opportunity to participate in the cardiac care of your patient. Consultation time took place between 905 at 9:40 AM. All questions answered and discussed with family.. Code Visit Inpatient E&M: 03764 Init Hosp L2
[2018-04-14] MEDS: Calcium (Elemental) 500 MG Tablet 1000 MG PO (13:00)
--- NOTE | 2018-04-14 13:28 | PCM.PN.HOSP ---
Patient Problems: Active and Suspected Problems Shortness of breath (Acute) Subjective: Still not breathing back to baseline, feels SOB, still with edema, no chest pain Vitals/I&O's: Vital Signs Temp Pulse Resp BP Pulse Ox 97.8 F 76 20 H 108/47 L 95 04/14/18 10:25 04/14/18 10:59 04/14/18 10:25 04/14/18 10:25 04/14/18 10:25 Oxygen Flow Rate (L/min) 2 Oxygen Delivery Method Nasal Cannula Weight: 243 lb Body Mass Index (BMI) 40.4 Intake and Output for Last 24 Hours 04/12/18 04/13/18 04/14/18 23:59 23:59 23:59 Intake Total 615 / 615 1574 / 1574 Output Total 250 / 250 Balance 615 / 615 1324 / 1324 General: Alert, Oriented x3, Cooperative HEENT: Atraumatic, EOMI, Normocephalic Neck: Supple, No JVD Lungs: Normal air movement, No wheeze, Diminished Cardiovascular: Regular rate, Regular Rhythm, Normal S1, Normal S2, No murmurs Abdomen: Soft, Non Tender, Non-Distended, No Hepato-splenomegaly Extremities: Capillary Refill Less than 3 Seconds, Edema - 2+ pitting Skin: - - Bilateral karolyn wraps Neurological: Neuro grossly intact, Sensory exam intact to light touch and pain Psych/Mental Status: Normal Affect, Appropriate Microbiology Past 72 Hours 04/13/18 14:40 Urine Catheter - Ace Urine Culture - Preliminary GNR lactose health promotion coordinator 04/13/18 15:41 Blood Culture (Wb) - Anticubital Right Bacteria Detection (PCR) - Preliminary Streptococcus agalactiae (B) 04/13/18 15:41 Blood Culture (Wb) - Anticubital Right Blood Culture - Preliminary 04/13/18 17:15 Blood Culture (Wb) - Anticubital Right Blood Culture - Preliminary Laboratory Results 04/13/18 12:05: Sodium 135 L, Potassium 3.5, Chloride 91 L, Carbon Dioxide 27.0, Anion Gap 17 H, BUN 91 H, Creatinine 4.12 H, Estim Creat Clear Calc 7.69, Est GFR (MDRD) Af Amer 13 L, Est GFR (MDRD) Non-Af 11 L, BUN/Creatinine Ratio 22.1 H, Glucose 91, Calcium 8.8, Total Bilirubin 1.00, AST 42 H, ALT 19, Alkaline Phosphatase 168 H, Troponin I 0.412 H, Total Protein 7.8, Albumin 2.6 L, Globulin 5.2 H, Albumin/Globulin Ratio 0.5 L 04/13/18 12:05: Total Counted Not Reportable, Nucleated RBC % 0.2, Differential Comment COMMENT, Diff Path Review October rich, Absolute Retic 0.05 04/13/18 12:05: Lactic Acid 3.1 H 04/13/18 12:50: B-Natriuretic Peptide 748.0 H 04/13/18 14:40: Urine Color Yellow, Urine Clarity Sl. Cloudy, Urine pH 5.0, Ur Specific [place] 1.020, Urine Protein 30 H, Urine Glucose (UA) Normal, Urine Ketones Negative, Urine Occult Blood 150 H, Urine Nitrite Positive H, Urine Bilirubin 3 H, Urine Urobilinogen 1 H, Ur Leukocyte Esterase 500 H, Urine RBC 0 SEEN, Urine WBC 0-5 SEEN, Ur Squamous Epith Cells 0-5 SEEN, Urine Bacteria 3+, Urine Mucus 0 SEEN 04/13/18 17:15: Lactic Acid 1.8 04/13/18 17:15: Troponin I 0.410 H 04/13/18 18:40: Urine Creatinine 194.00 04/13/18 18:40: Ur Random Sodium 17 04/13/18 20:15: Troponin I 0.325 H 04/13/18 20:15: Magnesium 2.5 04/14/18 05:55: WBC 32.7 H*, RBC 3.98 L, Hgb 11.3 L, Hct 36.4 L, MCV 91.5, MCH 28.4, MCHC 31.0 L, RDW 15.3 H, RDW Differential 51.1 H, Plt Count 114 L, MPV 11.0, Immature Gran % (Auto) 0.400, Neut % (Auto) 90.7 H, Lymph % (Auto) 4.2 L, [place] % (Auto) 4.6, Eos % (Auto) 0.0, Baso % (Auto) 0.1, Absolute Neuts (auto) 29.7 H, Absolute Lymphs (auto) 1.37, Total Counted Not Reportable, Nucleated RBC % 0.2, Differential Comment SCANNED, Diff Path Review May foll, Absolute Retic 0.06 04/14/18 05:55: Sodium 136, Potassium 3.9, Chloride 95 L, Carbon Dioxide 24.0, Anion Gap 17 H, BUN 105 H*, Creatinine 4.28 H, Estim Creat Clear Calc 9.28, Est GFR (MDRD) Af Amer 13 L, Est GFR (MDRD) Non-Af 11 L, BUN/Creatinine Ratio 24.5 H, Glucose 86, Calcium 8.6 04/14/18 05:55: PT 46.1 H, INR 4.9 H* 04/14/18 05:55: PTH Intact Pending 04/14/18 05:55: Random Vancomycin 17.1 H Current Medications Acetaminophen (Tylenol) 1,000 mg PO DINNER [facility] Calamine/Phenol (Calmoseptine Ointment) 1 applic TOPICAL BID [facility]; Protocol Last Admin: 04/14/18 09:44 Dose: 1 applic Calcium Carbonate (Os-Roger 500) 1,000 mg PO DAILY@1200 [facility] Last Admin: 04/14/18 13:00 Dose: 1,000 mg Cholecalciferol (Vitamin D) 1,000 unit PO DAILY [facility] Last Admin: 04/14/18 09:45 Dose: 1,000 unit Docusate Sodium (Colace) 200 mg PO BID [facility] Last Admin: 04/14/18 09:45 Dose: 200 mg Ergocalciferol (Vitamin D) 50,000 unit PO Tu@1000 [facility] Ferrous Sulfate (Ferrous Sulfate) 325 mg PO DAILY@0800 [facility] Last Admin: 04/14/18 09:44 Dose: 325 mg Vancomycin IV Pharmacy to Dose (1 ea/ Sodium Chloride) 500 mls @ 250 mls/hr IV X1 PRN; Protocol PRN Reason: Rx to Dose Cefepime HCl 1 gm/ Sodium (Chloride) 50 mls @ 100 mls/hr IV Q24 [facility] Last Admin: 04/14/18 09:43 Dose: 100 mls/hr Sodium Chloride () 1,000 mls @ 50 mls/hr IV .Q20H [facility] Magnesium Hydroxide (Milk Of Magnesia) 30 ml PO DAILY PRN PRN PRN Reason: Constipation Magnesium Oxide (Mag-Ox 400) 400 mg PO QODAY [facility] Metoprolol Tartrate (Lopressor (Beta Noe)) 50 mg PO BID [facility] Last Admin: 04/14/18 09:45 Dose: 50 mg Pantoprazole Sodium (Protonix) 20 mg PO BID [facility] Last Admin: 04/14/18 09:45 Dose: 20 mg Sodium Chloride () 5 - 30 ml IV UD PRN PRN Reason: SALINE FLUSH Last Admin: 04/14/18 09:40 Dose: 10 ml Vancomycin HCl () 1 lab MISCELL. DAILY@0600 [facility] Last Admin: 04/14/18 09:56 Dose: 1 lab Vancomycin HCl (Vancomycin Renal/Hd Dosing) 1 unit MISCELL. DAILY@0800 [facility] Last Admin: 04/14/18 09:57 Dose: Not Given Medical Necessity - Tobacco Use Smoking Status: Former smoker Assessment/Plan All Active Problems Shortness of breath (Acute) Fracture of femoral neck, right, closed (Acute) Pre-op evaluation (Acute) 1. Sepsis 2/2 LLE cellulitis and UTI/Demand ischemia/Acute hypoxic respiratory failure/acute on chronic right sided heart failure/Prerenal KIMBERLEY to possibly ATN - Urine and blood cx pending - Urine with alactose health promotion coordinator and blood with strep, likely a contaminant - Cautious with IVF@50 cc/hr - DC lasix - Family is considering temporary dialysis if no improvement in the creatinine - Vanc and cefepime will wait for sensitivities to adjust - ID consult - lactate normalized - Maintain on Oxygen - Edematous d/t right sided heart failure (likely cor pulmonale from idiopathic pulm htn), previous cath with normal LVEF - Echo pending - troponin is trending down - Appreciate Cardiology and nephrology in put 2. A-fib/HTN/CAD - C/w BB but hold coumadin for supratherapeutic INR - Monitor rate and INR DVT prophylaxis: SCDs and supra-therapeutic INR Advance care plannin min was spent with the family discussion goals of care, difference between DNRCCA and DNRCC as well as palliative care vs hospice. Code Visit Inpatient E&M: 80778 Subs Hosp L2 Procedures: 74149 Advncd Care Plan 30 Min
--- NOTE | 2018-04-14 13:32 | PN_ITS ---
Patient Problems: Active and Suspected Problems Shortness of breath (Acute) Subjective: Still not breathing back to baseline, feels SOB, still with edema, no chest pain Vitals/I&O's: Vital Signs Temp Pulse Resp BP Pulse Ox 97.8 F 76 20 H 108/47 L 95 04/14/18 10:25 04/14/18 10:59 04/14/18 10:25 04/14/18 10:25 04/14/18 10:25 Oxygen Flow Rate (L/min) 2 Oxygen Delivery Method Nasal Cannula Weight: 243 lb Body Mass Index (BMI) 40.4 Intake and Output for Last 24 Hours 04/12/18 04/13/18 04/14/18 23:59 23:59 23:59 Intake Total 615 / 615 1574 / 1574 Output Total 250 / 250 Balance 615 / 615 1324 / 1324 General: Alert, Oriented x3, Cooperative HEENT: Atraumatic, EOMI, Normocephalic Neck: Supple, No JVD Lungs: Normal air movement, No wheeze, Diminished Cardiovascular: Regular rate, Regular Rhythm, Normal S1, Normal S2, No murmurs Abdomen: Soft, Non Tender, Non-Distended, No Hepato-splenomegaly Extremities: Capillary Refill Less than 3 Seconds, Edema - 2+ pitting Skin: - - Bilateral karolyn wraps Neurological: Neuro grossly intact, Sensory exam intact to light touch and pain Psych/Mental Status: Normal Affect, Appropriate Microbiology Past 72 Hours 04/13/18 14:40 Urine Catheter - Ace Urine Culture - Preliminary GNR lactose adjustment examiner 04/13/18 15:41 Blood Culture (Wb) - Anticubital Right Bacteria Detection (PCR) - Preliminary Streptococcus agalactiae (B) 04/13/18 15:41 Blood Culture (Wb) - Anticubital Right Blood Culture - Preliminary 04/13/18 17:15 Blood Culture (Wb) - Anticubital Right Blood Culture - Preliminary Laboratory Results 04/13/18 12:05: Sodium 135 L, Potassium 3.5, Chloride 91 L, Carbon Dioxide 27.0, Anion Gap 17 H, BUN 91 H, Creatinine 4.12 H, Estim Creat Clear Calc 7.69, Est GFR (MDRD) Af Amer 13 L, Est GFR (MDRD) Non-Af 11 L, BUN/Creatinine Ratio 22.1 H , Glucose 91, Calcium 8.8, Total Bilirubin 1.00, AST 42 H, ALT 19, Alkaline Phosphatase 168 H, Troponin I 0.412 H, Total Protein 7.8, Albumin 2.6 L, Globulin 5.2 H, Albumin/Globulin Ratio 0.5 L 04/13/18 12:05: Total Counted Not Reportable, Nucleated RBC % 0.2, Differential Comment COMMENT, Diff Path Review October rich, Absolute Retic 0.05 04/13/18 12:05: Lactic Acid 3.1 H 04/13/18 12:50: B-Natriuretic Peptide 748.0 H 04/13/18 14:40: Urine Color Yellow, Urine Clarity Sl. Cloudy, Urine pH 5.0, Ur Specific [place] 1.020, Urine Protein 30 H, Urine Glucose (UA) Normal, Urine Ketones Negative, Urine Occult Blood 150 H, Urine Nitrite Positive H, Urine Bilirubin 3 H, Urine Urobilinogen 1 H, Ur Leukocyte Esterase 500 H, Urine RBC 0 SEEN, Urine WBC 0-5 SEEN, Ur Squamous Epith Cells 0-5 SEEN, Urine Bacteria 3+, Urine Mucus 0 SEEN 04/13/18 17:15: Lactic Acid 1.8 04/13/18 17:15: Troponin I 0.410 H 04/13/18 18:40: Urine Creatinine 194.00 04/13/18 18:40: Ur Random Sodium 17 04/13/18 20:15: Troponin I 0.325 H 04/13/18 20:15: Magnesium 2.5 04/14/18 05:55: WBC 32.7 H*, RBC 3.98 L, Hgb 11.3 L, Hct 36.4 L, MCV 91.5, MCH 28.4, MCHC 31.0 L, RDW 15.3 H, RDW Differential 51.1 H, Plt Count 114 L, MPV 11.0, Immature Gran % (Auto) 0.400, Neut % (Auto) 90.7 H, Lymph % (Auto) 4.2 L, [place] % (Auto) 4.6, Eos % (Auto) 0.0, Baso % (Auto) 0.1, Absolute Neuts (auto) 29.7 H, Absolute Lymphs (auto) 1.37, Total Counted Not Reportable, Nucleated RBC % 0.2, Differential Comment SCANNED, Diff Path Review May foll, Absolute Retic 0.06 04/14/18 05:55: Sodium 136, Potassium 3.9, Chloride 95 L, Carbon Dioxide 24.0, Anion Gap 17 H, BUN 105 H*, Creatinine 4.28 H, Estim Creat Clear Calc 9.28, Est GFR (MDRD) Af Amer 13 L, Est GFR (MDRD) Non-Af 11 L, BUN/Creatinine Ratio 24.5 H , Glucose 86, Calcium 8.6 04/14/18 05:55: PT 46.1 H, INR 4.9 H* 04/14/18 05:55: PTH Intact Pending 04/14/18 05:55: Random Vancomycin 17.1 H Current Medications Acetaminophen (Tylenol) 1,000 mg PO DINNER [facility] Calamine/Phenol (Calmoseptine Ointment) 1 applic TOPICAL BID [facility]; Protocol Last Admin: 04/14/18 09:44 Dose: 1 applic Calcium Carbonate (Os-Roger 500) 1,000 mg PO DAILY@1200 [facility] Last Admin: 04/14/18 13:00 Dose: 1,000 mg Cholecalciferol (Vitamin D) 1,000 unit PO DAILY [facility] Last Admin: 04/14/18 09:45 Dose: 1,000 unit Docusate Sodium (Colace) 200 mg PO BID [facility] Last Admin: 04/14/18 09:45 Dose: 200 mg Ergocalciferol (Vitamin D) 50,000 unit PO Tu@1000 [facility] Ferrous Sulfate (Ferrous Sulfate) 325 mg PO DAILY@0800 [facility] Last Admin: 04/14/18 09:44 Dose: 325 mg Vancomycin IV Pharmacy to Dose (1 ea/ Sodium Chloride) 500 mls @ 250 mls/hr IV X1 PRN; Protocol PRN Reason: Rx to Dose Cefepime HCl 1 gm/ Sodium (Chloride) 50 mls @ 100 mls/hr IV Q24 [facility] Last Admin: 04/14/18 09:43 Dose: 100 mls/hr Sodium Chloride () 1,000 mls @ 50 mls/hr IV .Q20H [facility] Magnesium Hydroxide (Milk Of Magnesia) 30 ml PO DAILY PRN PRN PRN Reason: Constipation Magnesium Oxide (Mag-Ox 400) 400 mg PO QODAY [facility] Metoprolol Tartrate (Lopressor (Beta Noe)) 50 mg PO BID [facility] Last Admin: 04/14/18 09:45 Dose: 50 mg Pantoprazole Sodium (Protonix) 20 mg PO BID [facility] Last Admin: 04/14/18 09:45 Dose: 20 mg Sodium Chloride () 5 - 30 ml IV UD PRN PRN Reason: SALINE FLUSH Last Admin: 04/14/18 09:40 Dose: 10 ml Vancomycin HCl () 1 lab MISCELL. DAILY@0600 [facility] Last Admin: 04/14/18 09:56 Dose: 1 lab Vancomycin HCl (Vancomycin Renal/Hd Dosing) 1 unit MISCELL. DAILY@0800 [facility] Last Admin: 04/14/18 09:57 Dose: Not Given Medical Necessity - Tobacco Use Smoking Status: Former smoker Assessment/Plan All Active Problems Shortness of breath (Acute) Fracture of femoral neck, right, closed (Acute) Pre-op evaluation (Acute) 1. Sepsis 2/2 LLE cellulitis and UTI/Demand ischemia/Acute hypoxic respiratory failure/acute on chronic right sided heart failure/Prerenal KIMBERLEY to possibly ATN - Urine and blood cx pending - Urine with alactose adjustment examiner and blood with strep, likely a contaminant - Cautious with IVF@50 cc/hr - DC lasix - Family is considering temporary dialysis if no improvement in the creatinine - Vanc and cefepime will wait for sensitivities to adjust - ID consult - lactate normalized - Maintain on Oxygen - Edematous d/t right sided heart failure (likely cor pulmonale from idiopathic pulm htn), previous cath with normal LVEF - Echo pending - troponin is trending down - Appreciate Cardiology and nephrology in put 2. A-fib/HTN/CAD - C/w BB but hold coumadin for supratherapeutic INR - Monitor rate and INR DVT prophylaxis: SCDs and supra-therapeutic INR Advance care plannin min was spent with the family discussion goals of care, difference between DNRCCA and DNRCC as well as palliative care vs hospice. Code Visit Inpatient E&M: 78577 Subs Hosp L2 Procedures: 77957 Advncd Care Plan 30 Min
[2018-04-14] MEDS: Ipratropium/Albuterol Sulfate 3 ML AMPUL.NEB INHALATION ×2 (14:25→19:18)
[2018-04-14] MEDS: Acetaminophen 500 MG Tablet 1000 MG PO (17:41)
[2018-04-14] MEDS: 0.9% Normal Saline 1,000 ML 50 ML IV (17:42)
[2018-04-15] VITALS (16 sets, daily range): BP systolic 105–135; BP diastolic 57–68; PULSE 70–89; RESP 18–24; TEMP 36.6–37.1; O2SAT 95–98
--- NOTE | 2018-04-15 04:00 | EKG12_ITS ---
Test Reason : AM EKG Blood Pressure : / mmHG Vent. Rate : 076 BPM Atrial Rate : 076 BPM P-R Int : 000 ms QRS Dur : 086 ms QT Int : 416 ms P-R-T Axes : 000 087 053 degrees QTc Int : 468 ms Atrial fibrillation Low voltage QRS Cannot rule out Anterior infarct , age undetermined Abnormal ECG When compared with ECG of 13-APR-2018 11:41, MANUAL COMPARISON REQUIRED, DATA IS UNCONFIRMED Confirmed by CASSIE FISHER, REBECA ([id number]), publication editor REGINA LINTON ([id number]) on 04/22/2018 4:01:34 PM Referred By: DR IRWIN Confirmed By:REBECA MATTHEWS MD
[2018-04-15 04:43] LABS: Hematocrit 35.5 % (37-47); Hemoglobin 11.3 g/dl (12.0-15.0); Mean Corp Hgb Conc 31.8 g/gl (32-36); Mean Corpuscular Hgb 28.8 pg (27.0-32.0); Mean Corpuscular Volume 90.6 fL (81-99); Mean Platelet Vol. 11.5 fl (6.2-12.0); Platelet Count 115 K/mm3 (150-450); RBC Distribution Width CV 15.4 % (11.6-14.6); RBC Distribution Width SD 50.3 fl (35.1-43.9); Red Blood Count 3.92 M/mm3 (4.2-5.4); White Blood Count 25.4 K/mm3 (4.4-11.0)
[2018-04-15 04:44] LABS: Prothrombin Time (Protime)PT. 47.5 SECONDS (11.7-14.9); Scan Indicated on CBC? Y/N NO
[2018-04-15 04:45] LABS: Partial Thromboplast Time 47.5 Seconds (24.1-36.2)
[2018-04-15 05:00] LABS: International Normalized Ratio 5.1
[2018-04-15 05:16] LABS: Vancomycin, Random Level 13.4 ug/mL (0.0-15.0)
[2018-04-15 05:21] LABS: Albumin, Serum 2.3 g/dL (3.2-5.0); BUN 124 mg/dL (7-18); Calcium,Total 8.1 mg/dL (8.5-10.1); Chloride 95 mmol/L (98-107); Creatinine, Serum 4.59 mg/dL (0.55-1.02); EST Glomerular Filtration Rate 10 mL/min (>60); Est Glom Filt Rate - Afr Amer 12 mL/min (>60); Estimated Creatinine Clearance 8.65 ml/min; Glucose 100 mg/dL (74-106); Phosphorus 7.8 mg/dL (2.5-4.9); Potassium 3.8 mmol/L (3.5-5.1); Sodium Level 134 mmol/L (136-145)
[2018-04-15] MEDS: Phytonadione (Vit K) 10 MG/ML Ampul 5 MG PO (06:58)
[2018-04-15] MEDS: Ipratropium/Albuterol Sulfate 3 ML AMPUL.NEB INHALATION ×4 (07:27→19:09)
--- NOTE | 2018-04-15 07:51 | PCM.PROGNOTE ---
Subjective: Chief complaint: Follow-up after admission for sepsis due to bilateral lower extremity cellulitis, acute cystitis, found to have streptococcal bacteremia, also diagnosed with acute renal failure, hyperkalemia and non-ST elevation MS. Patient seen and examined. No acute events overnight. She mentioned that her breathing is almost the same compared to when she came in. Obviously, she is short of breath, dyspneic and tachypneic. She denied abdominal pain, nausea vomiting. She denied chest pain. She is maintaining her pulse ox at 96% on 2 L, other vital signs are stable. - Physical Exam General: Alert, Oriented x3, Cooperative, - - Short of breath, tachypneic. HEENT: Atraumatic, PERRLA, EOMI, Normocephalic Oral: Moist Mucosa, No Gingival or Mucosal Lesions/ Ulcerations Neck: Supple, No JVD, Negative Carotid Bruits, Trachea Midline, Thyroid Normal Size and Texture Lungs: No rhonchi, No wheeze, No rales, Diminished, Short of Breath, - - Decreased breath sounds bilateral, Cardiovascular: Regular rate, Regular Rhythm, Normal S1, Normal S2, PMI Normal Abdomen: Bowel Sounds Present, Soft, Non Tender, Non-Distended, No Hepato-splenomegaly, Obese Extremities: No clubbing, No cyanosis, - - Bilateral Britton wraps. Skin: No rashes, No breakdown Lymphatic: No Cervical, Supraclavicular, or Inguinal Adenopathy Neurological: Cranial nerves II-XII grossly intact, Motor Exam 5/5 strength throughout Psych/Mental Status: Flat Affect Vital Signs Temp Pulse Resp BP Pulse Ox 97.9 F 77 18 110/68 96 04/15/18 04:28 04/15/18 07:27 04/15/18 04:28 04/15/18 04:28 04/15/18 04:28 Oxygen Flow Rate (L/min) 2 Oxygen Delivery Method Nasal Cannula Weight: 243 lb Body Mass Index (BMI) 40.4 Intake and Output for Last 24 Hours 04/13/18 04/14/18 04/15/18 23:59 23:59 23:59 Intake Total 615 / 615 2107 / 2107 293 / 293 Output Total 305 / 305 120 / 120 Balance 615 / 615 1802 / 1802 173 / 173 Microbiology Past 72 Hours 04/13/18 17:15 Blood Culture - Final Blood Culture (Wb) - Anticubital Right Streptococcus agalactiae (B) 04/13/18 15:41 Bacteria Detection (PCR) - Final Blood Culture (Wb) - Anticubital Right Streptococcus agalactiae (B) Blood Culture - Final Streptococcus agalactiae (B) 04/13/18 14:40 Urine Culture - Preliminary Urine Catheter - Ace GNR lactose final operations technician Laboratory Tests Past 24 Hrs 04/14/18 04/14/18 04/15/18 05:55 05:55 04:22 WBC RBC Hgb Hct MCV MCH MCHC RDW RDW Differential Plt Count MPV Total Counted Not Reportable Nucleated RBC % 0.2 Differential Comment SCANNED Diff Path Review May foll Absolute Retic 0.06 PT INR APTT Sodium 136 134 L Potassium 3.9 3.8 Chloride 95 L 95 L Carbon Dioxide 24.0 23.0 Anion Gap 17 H BUN 105 H* 124 H* Creatinine 4.28 H 4.59 H Estim Creat Clear Calc 9.28 8.65 Est GFR (MDRD) Af Amer 13 L 12 L Est GFR (MDRD) Non-Af 11 L 10 L BUN/Creatinine Ratio 24.5 H 27.0 H Glucose 86 100 Calcium 8.6 8.1 L Phosphorus 7.8 H Albumin 2.3 L Random Vancomycin 04/15/18 04/15/18 04/15/18 04:22 04:22 04:22 WBC 25.4 H RBC 3.92 L Hgb 11.3 L Hct 35.5 L MCV 90.6 MCH 28.8 MCHC 31.8 L RDW 15.4 H RDW Differential 50.3 H Plt Count 115 L MPV 11.5 Total Counted Nucleated RBC % Differential Comment Diff Path Review Absolute Retic PT 47.5 H INR 5.1 H* APTT 47.5 H Sodium Potassium Chloride Carbon Dioxide Anion Gap BUN Creatinine Estim Creat Clear Calc Est GFR (MDRD) Af Amer Est GFR (MDRD) Non-Af BUN/Creatinine Ratio Glucose Calcium Phosphorus Albumin Random Vancomycin 13.4 Medical Necessity - Tobacco Use Smoking Status: Former smoker Assessment/Plan This is an 82 years old female patient presented to the emergency room because of shortness of breath and cough and she was found to have severe sepsis secondary to acute bilateral lower extremity cellulitis, acute renal failure and acute on chronic diastolic CHF. #1 severe sepsis: Secondary to bilateral lower extremity cellulitis and bacteremia as well as acute cystitis. She is on IV cefepime and vancomycin. She has been afebrile overnight, blood pressure and heart rate are stable, pulse ox is maintained on 2 L. Blood culture revealed Streptococcus agalactiae, sensitivity reviewed. She was started back on gentle IV fluids for hydration. She still have very poor urine output. Kidney function is worsening. Plan: DC IV vancomycin and cefepime, start IV Rocephin based on urine and blood cultures. #2 acute bilateral lower extremity cellulitis: Again, she is on IV cefepime and vancomycin as above. Plan to change to IV Rocephin based on blood and urine cultures. Vital signs are fairly stable at this point. #3 streptococcal bacteremia: On IV vancomycin and cefepime. Blood culture reviewed and Streptococcus agalactiae sensitive to Rocephin. Plan to DC IV vancomycin and cefepime as above, start IV Rocephin. #4 acute cystitis: Urine culture revealed Klebsiella pneumonia which was sensitive to Rocephin as well. Plan as above. #5 acute on chronic renal failure/hyperkalemia: Secondary to acute tubular necrosis and severe sepsis. Ultrasound of the kidneys revealed mild cortical thinning of the kidneys otherwise normal. Patient has been on IV fluids but his kidney function is still worsening, no improvement. Nephrology on the case. Functional status is discussed with the patient's family and refused because of all over prognosis. Patient was started back on gentle IV fluids for hydration, plan to repeat BMP tomorrow morning. #6 acute on chronic diastolic CHF: She is only on metoprolol. She is not on diuretics because of acute on chronic renal failure with worsening BUN and creatinine. She had 2D echocardiogram back on January, that revealed ejection fraction of 60%, severely enlarged left atrium, moderately enlarged, moderate to severe mitral stenosis, RVSP of 64 consistent with moderate to severe pulmonary hypertension. At this time, patient has no or little urine output. Dialysis is not an option because patient's family refused. #7 Coumadin induced coagulopathy: INR still trending up. At this time, no evidence of active bleeding. Coumadin held. Today's INR is 5.1. Patient received 1 dose of p.o. vitamin K. Plan to monitor and repeat INR tomorrow morning. #8 non-ST elevation MS: It is likely secondary to heart strain secondary to acute on chronic CHF as well as severe sepsis and infection. Patient denied any chest pain, troponins are trending down. She is only on metoprolol #9 hypertension: At this time, blood pressure stable. She is on metoprolol #10 chronic atrial fibrillation: Rate is controlled. INR is elevated at 5.1. She is on metoprolol for rate control. #11 coronary artery disease: EKG reviewed as above. Troponins are trending down. Plan to continue metoprolol. #12 DVT prophylaxis: INR is 5.1. #13 CODE STATUS: DNR CCA. Confirmed with patient's family. I spoke with the patient's family today again about the prognosis given patient's multiple acute problems. Patient stated that still did not want to go for dialysis. I explained to the patient's family that if her kidney function keeps worsening overnight, there is no option to treat her acute renal failure and accept dialysis. I brought the option of hospice and palliative care and they are open to this option but they wanted to see how patient will progress overnight and then decide tomorrow. At this time, patient will remain DNR CCA This note was generated with [employer] dictation software. It may contain incorrect words, spelling, and punctuation that were not noted in checking the note before signing. Code Visit Inpatient E&M: [id number] [facility] [place] Hosp L3
--- NOTE | 2018-04-15 07:55 | PN_ITS ---
Subjective: Chief complaint: Follow-up after admission for sepsis due to bilateral lower extremity cellulitis, acute cystitis, found to have streptococcal bacteremia, also diagnosed with acute renal failure, hyperkalemia and non-ST elevation IL. Patient seen and examined. No acute events overnight. She mentioned that her breathing is almost the same compared to when she came in. Obviously, she is short of breath, dyspneic and tachypneic. She denied abdominal pain, nausea vomiting. She denied chest pain. She is maintaining her pulse ox at 96% on 2 L, other vital signs are stable. - Physical Exam General: Alert, Oriented x3, Cooperative, - - Short of breath, tachypneic. HEENT: Atraumatic, PERRLA, EOMI, Normocephalic Oral: Moist Mucosa, No Gingival or Mucosal Lesions/ Ulcerations Neck: Supple, No JVD, Negative Carotid Bruits, Trachea Midline, Thyroid Normal Size and Texture Lungs: No rhonchi, No wheeze, No rales, Diminished, Short of Breath, - - Decreased breath sounds bilateral, Cardiovascular: Regular rate, Regular Rhythm, Normal S1, Normal S2, PMI Normal Abdomen: Bowel Sounds Present, Soft, Non Tender, Non-Distended, No Hepato- splenomegaly, Obese Extremities: No clubbing, No cyanosis, - - Bilateral Britton wraps. Skin: No rashes, No breakdown Lymphatic: No Cervical, Supraclavicular, or Inguinal Adenopathy Neurological: Cranial nerves II-XII grossly intact, Motor Exam 5/5 strength throughout Psych/Mental Status: Flat Affect Vital Signs Temp Pulse Resp BP Pulse Ox 97.9 F 77 18 110/68 96 04/15/18 04:28 04/15/18 07:27 04/15/18 04:28 04/15/18 04:28 04/15/18 04:28 Oxygen Flow Rate (L/min) 2 Oxygen Delivery Method Nasal Cannula Weight: 243 lb Body Mass Index (BMI) 40.4 Intake and Output for Last 24 Hours 04/13/18 04/14/18 04/15/18 23:59 23:59 23:59 Intake Total 615 / 615 2107 / 2107 293 / 293 Output Total 305 / 305 120 / 120 Balance 615 / 615 1802 / 1802 173 / 173 Microbiology Past 72 Hours 04/13/18 17:15 Blood Culture - Final Blood Culture (Wb) - Anticubital Right Streptococcus agalactiae (B) 04/13/18 15:41 Bacteria Detection (PCR) - Final Blood Culture (Wb) - Anticubital Right Streptococcus agalactiae (B) Blood Culture - Final Streptococcus agalactiae (B) 04/13/18 14:40 Urine Culture - Preliminary Urine Catheter - Ace GNR lactose redevelopment specialist Laboratory Tests Past 24 Hrs 04/14/18 04/14/18 04/15/18 05:55 05:55 04:22 WBC RBC Hgb Hct MCV MCH MCHC RDW RDW Differential Plt Count MPV Total Counted Not Reportable Nucleated RBC % 0.2 Differential Comment SCANNED Diff Path Review May foll Absolute Retic 0.06 PT INR APTT Sodium 136 134 L Potassium 3.9 3.8 Chloride 95 L 95 L Carbon Dioxide 24.0 23.0 Anion Gap 17 H BUN 105 H* 124 H* Creatinine 4.28 H 4.59 H Estim Creat Clear Calc 9.28 8.65 Est GFR (MDRD) Af Amer 13 L 12 L Est GFR (MDRD) Non-Af 11 L 10 L BUN/Creatinine Ratio 24.5 H 27.0 H Glucose 86 100 Calcium 8.6 8.1 L Phosphorus 7.8 H Albumin 2.3 L Random Vancomycin 04/15/18 04/15/18 04/15/18 04:22 04:22 04:22 WBC 25.4 H RBC 3.92 L Hgb 11.3 L Hct 35.5 L MCV 90.6 MCH 28.8 MCHC 31.8 L RDW 15.4 H RDW Differential 50.3 H Plt Count 115 L MPV 11.5 Total Counted Nucleated RBC % Differential Comment Diff Path Review Absolute Retic PT 47.5 H INR 5.1 H* APTT 47.5 H Sodium Potassium Chloride Carbon Dioxide Anion Gap BUN Creatinine Estim Creat Clear Calc Est GFR (MDRD) Af Amer Est GFR (MDRD) Non-Af BUN/Creatinine Ratio Glucose Calcium Phosphorus Albumin Random Vancomycin 13.4 Medical Necessity - Tobacco Use Smoking Status: Former smoker Assessment/Plan This is an 82 years old female patient presented to the emergency room because of shortness of breath and cough and she was found to have severe sepsis secondary to acute bilateral lower extremity cellulitis, acute renal failure and acute on chronic diastolic CHF. #1 severe sepsis: Secondary to bilateral lower extremity cellulitis and bacteremia as well as acute cystitis. She is on IV cefepime and vancomycin. She has been afebrile overnight, blood pressure and heart rate are stable, pulse ox is maintained on 2 L. Blood culture revealed Streptococcus agalactiae, sensitivity reviewed. She was started back on gentle IV fluids for hydration. She still have very poor urine output. Kidney function is worsening. Plan: DC IV vancomycin and cefepime, start IV Rocephin based on urine and blood cultures. #2 acute bilateral lower extremity cellulitis: Again, she is on IV cefepime and vancomycin as above. Plan to change to IV Rocephin based on blood and urine cultures. Vital signs are fairly stable at this point. #3 streptococcal bacteremia: On IV vancomycin and cefepime. Blood culture reviewed and Streptococcus agalactiae sensitive to Rocephin. Plan to DC IV vancomycin and cefepime as above, start IV Rocephin. #4 acute cystitis: Urine culture revealed Klebsiella pneumonia which was sensitive to Rocephin as well. Plan as above. #5 acute on chronic renal failure/hyperkalemia: Secondary to acute tubular necrosis and severe sepsis. Ultrasound of the kidneys revealed mild cortical thinning of the kidneys otherwise normal. Patient has been on IV fluids but his kidney function is still worsening, no improvement. Nephrology on the case. Functional status is discussed with the patient's family and refused because of all over prognosis. Patient was started back on gentle IV fluids for hydration, plan to repeat BMP tomorrow morning. #6 acute on chronic diastolic CHF: She is only on metoprolol. She is not on diuretics because of acute on chronic renal failure with worsening BUN and creatinine. She had 2D echocardiogram back on January, that revealed ejection fraction of 60%, severely enlarged left atrium, moderately enlarged, moderate to severe mitral stenosis, RVSP of 64 consistent with moderate to severe pulmonary hypertension. At this time, patient has no or little urine o utput. Dialysis is not an option because patient's family refused. #7 Coumadin induced coagulopathy: INR still trending up. At this time, no evidence of active bleeding. Coumadin held. Today's INR is 5.1. Patient received 1 dose of p.o. vitamin K. Plan to monitor and repeat INR tomorrow morning. #8 non-ST elevation IL: It is likely secondary to heart strain secondary to acute on chronic CHF as well as severe sepsis and infection. Patient denied any chest pain, troponins are trending down. She is only on metoprolol #9 hypertension: At this time, blood pressure stable. She is on metoprolol #10 chronic atrial fibrillation: Rate is controlled. INR is elevated at 5.1. She is on metoprolol for rate control. #11 coronary artery disease: EKG reviewed as above. Troponins are trending down. Plan to continue metoprolol. #12 DVT prophylaxis: INR is 5.1. #13 CODE STATUS: DNR CCA. Confirmed with patient's family. I spoke with the patient's family today again about the prognosis given patient's multiple acute problems. Patient stated that still did not want to go for dialysis. I explained to the patient's family that if her kidney function keeps worsening overnight, there is no option to treat her acute renal failure and accept dialysis. I brought the option of hospice and palliative care and they are open to this option but they wanted to see how patient will progress overnight and then decide tomorrow. At this time, patient will remain DNR CCA This note was generated with [employer] dictation software. It may contain incorrect words, spelling, and punctuation that were not noted in checking the note before signing. Code Visit Inpatient E&M: [id number] [facility] Hosp L3
[2018-04-15 08:35] LABS: PTHIN 290.7 pg/mL (18.4-80.1)
--- NOTE | 2018-04-15 09:19 | NURSING ---
wound photo: left posterior lower leg
[2018-04-15] MEDS: Cefepime 1 GM in 0.9% NS 50 ML Minibag Q12 IV (09:32)
[2018-04-15] MEDS: Menthol/Lanolin/Calamine/Znox 113 GM Tube 1 APPLIC TOPICAL ×2 (09:32→21:14)
[2018-04-15 11:16] LABS: Bedside Glucose 101 mg/dL (70-110)
--- NOTE | 2018-04-15 12:22 | PCM.PN.REN ---
Subjective: clinically unchanged, denies NV, CP. Scheduled for stress test today. Urine output poor. Creatinine remains elevated. DW pt son and dtr-in-law re dialysis and potential risks, benefits. Poor quality of health. - Physical Exam General: Alert, Oriented x3, Cooperative, No apparent distress Neck: Supple Lungs: Diminished Cardiovascular: Irregular Rate, Murmur Abdomen: Bowel Sounds Present, Soft, Non Tender, Non-Distended Extremities: Edema - 2+, mild erythema, SCD's applied Musculoskeletal: Muscle Wasting Psych/Mental Status: Flat Affect, Alert and oriented to time, place, person, mood and affect Vital Signs Temp Pulse Resp BP Pulse Ox 98.0 F 83 20 H 115/61 95 04/15/18 08:47 04/15/18 11:22 04/15/18 11:22 04/15/18 08:47 04/15/18 08:47 Oxygen Flow Rate (L/min) 2.5 Oxygen Delivery Method Nasal Cannula Weight: 110.223 kg Body Mass Index (BMI) 40.4 Intake and Output for Last 24 Hours 04/13/18 04/14/18 04/15/18 23:59 23:59 23:59 Intake Total 615 / 615 2107 / 2107 685 / 685 Output Total 305 / 305 245 / 245 Balance 615 / 615 1802 / 1802 440 / 440 Microbiology Past 72 Hours 04/13/18 14:40 Urine Culture - Final Urine Catheter - Ace Klebsiella pneumoniae sp pneum 04/13/18 17:15 Blood Culture - Final Blood Culture (Wb) - Anticubital Right Streptococcus agalactiae (B) 04/13/18 15:41 Bacteria Detection (PCR) - Final Blood Culture (Wb) - Anticubital Right Streptococcus agalactiae (B) Blood Culture - Final Streptococcus agalactiae (B) Laboratory Tests Past 24 Hrs 04/14/18 04/15/18 04/15/18 05:55 04:22 04:22 WBC 25.4 H RBC 3.92 L Hgb 11.3 L Hct 35.5 L MCV 90.6 MCH 28.8 MCHC 31.8 L RDW 15.4 H RDW Differential 50.3 H Plt Count 115 L MPV 11.5 PT INR APTT Sodium 134 L Potassium 3.8 Chloride 95 L Carbon Dioxide 23.0 BUN 124 H* Creatinine 4.59 H Estim Creat Clear Calc 8.65 Est GFR (MDRD) Af Amer 12 L Est GFR (MDRD) Non-Af 10 L BUN/Creatinine Ratio 27.0 H Glucose 100 Calcium 8.1 L Phosphorus 7.8 H Albumin 2.3 L PTH Intact 290.7 H Random Vancomycin 04/15/18 04/15/18 04:22 04:22 WBC RBC Hgb Hct MCV MCH MCHC RDW RDW Differential Plt Count MPV PT 47.5 H INR 5.1 H* APTT 47.5 H Sodium Potassium Chloride Carbon Dioxide BUN Creatinine Estim Creat Clear Calc Est GFR (MDRD) Af Amer Est GFR (MDRD) Non-Af BUN/Creatinine Ratio Glucose Calcium Phosphorus Albumin PTH Intact Random Vancomycin 13.4 POC Glucose 04/15/18 11:12 POC Glucose 101 Medical Necessity - Tobacco Use Smoking Status: Former smoker Assessment/Plan 1. KIMBERLEY likely due to ATN, sepsis. Currently olgiuric. Creatinine at 4.2. Baseline creatinine 0.95 in Feb 2017. FeNa <1% to suggest prerenal event however has mild diffuse edema with small pleural effusion likely due to pulmonary hypertension. Discussed with pt and pt family at bedside re: dialysis. Will increase iv fluid rate to 80cc/hr and continue to monitor renal function. No urgent indication for dialysis. Pt poor dialysis candidate due to multiple comorbid condition, poor quality of life. 2. Sepsis with strep in blood. Urine c/s showing GNR. Continue with iv antibx. WBC remains elevated. Lactic acidosis improving 3. UTI c/s with GNR. 4. Chronic atrial fibrillation on coumadin at [facility], on hold for Supratherapeutic INR. 5. Pulmonary hypertension, valvular disease on chronic diuretics spironolactone and bumex at [facility]. 6. NSTEMI +troponins, cardiology consulted. Stress test today 7. Debilitation, [facility] resident 8. SEJAL
--- NOTE | 2018-04-15 12:27 | PN.RENAL_ITS ---
Subjective: clinically unchanged, denies NV, CP. Scheduled for stress test today. Urine output poor. Creatinine remains elevated. DW pt son and dtr-in-law re dialysis and potential risks, benefits. Poor quality of health. - Physical Exam General: Alert, Oriented x3, Cooperative, No apparent distress Neck: Supple Lungs: Diminished Cardiovascular: Irregular Rate, Murmur Abdomen: Bowel Sounds Present, Soft, Non Tender, Non-Distended Extremities: Edema - 2+, mild erythema, SCD's applied Musculoskeletal: Muscle Wasting Psych/Mental Status: Flat Affect, Alert and oriented to time, place, person, mood and affect Vital Signs Temp Pulse Resp BP Pulse Ox 98.0 F 83 20 H 115/61 95 04/15/18 08:47 04/15/18 11:22 04/15/18 11:22 04/15/18 08:47 04/15/18 08:47 Oxygen Flow Rate (L/min) 2.5 Oxygen Delivery Method Nasal Cannula Weight: 110.223 kg Body Mass Index (BMI) 40.4 Intake and Output for Last 24 Hours 04/13/18 04/14/18 04/15/18 23:59 23:59 23:59 Intake Total 615 / 615 2107 / 2107 685 / 685 Output Total 305 / 305 245 / 245 Balance 615 / 615 1802 / 1802 440 / 440 Microbiology Past 72 Hours 04/13/18 14:40 Urine Culture - Final Urine Catheter - Ace Klebsiella pneumoniae sp pneum 04/13/18 17:15 Blood Culture - Final Blood Culture (Wb) - Anticubital Right Streptococcus agalactiae (B) 04/13/18 15:41 Bacteria Detection (PCR) - Final Blood Culture (Wb) - Anticubital Right Streptococcus agalactiae (B) Blood Culture - Final Streptococcus agalactiae (B) Laboratory Tests Past 24 Hrs 04/14/18 04/15/18 04/15/18 05:55 04:22 04:22 WBC 25.4 H RBC 3.92 L Hgb 11.3 L Hct 35.5 L MCV 90.6 MCH 28.8 MCHC 31.8 L RDW 15.4 H RDW Differential 50.3 H Plt Count 115 L MPV 11.5 PT INR APTT Sodium 134 L Potassium 3.8 Chloride 95 L Carbon Dioxide 23.0 BUN 124 H* Creatinine 4.59 H Estim Creat Clear Calc 8.65 Est GFR (MDRD) Af Amer 12 L Est GFR (MDRD) Non-Af 10 L BUN/Creatinine Ratio 27.0 H Glucose 100 Calcium 8.1 L Phosphorus 7.8 H Albumin 2.3 L PTH Intact 290.7 H Random Vancomycin 04/15/18 04/15/18 04:22 04:22 WBC RBC Hgb Hct MCV MCH MCHC RDW RDW Differential Plt Count MPV PT 47.5 H INR 5.1 H* APTT 47.5 H Sodium Potassium Chloride Carbon Dioxide BUN Creatinine Estim Creat Clear Calc Est GFR (MDRD) Af Amer Est GFR (MDRD) Non-Af BUN/Creatinine Ratio Glucose Calcium Phosphorus Albumin PTH Intact Random Vancomycin 13.4 POC Glucose 04/15/18 11:12 POC Glucose 101 Medical Necessity - Tobacco Use Smoking Status: Former smoker Assessment/Plan 1. KIMBERLEY likely due to ATN, sepsis. Currently olgiuric. Creatinine at 4.2. Baseline creatinine 0.95 in Feb 2017. FeNa <1% to suggest prerenal event however has mild diffuse edema with small pleural effusion likely due to pulmonary hypertension. Discussed with pt and pt family at bedside re: dialysis. Will increase iv fluid rate to 80cc/hr and continue to monitor renal function. No urgent indication for dialysis. Pt poor dialysis candidate due to multiple comorbid condition, poor quality of life. 2. Sepsis with strep in blood. Urine c/s showing GNR. Continue with iv antibx. WBC remains elevated. Lactic acidosis improving 3. UTI c/s with GNR. 4. Chronic atrial fibrillation on coumadin at [facility], on hold for Supratherapeutic INR. 5. Pulmonary hypertension, valvular disease on chronic diuretics spironolactone and bumex at [facility]. 6. NSTEMI +troponins, cardiology consulted. Stress test today 7. Debilitation, [facility] resident 8. SEJAL
[2018-04-15] MEDS: Ferrous Sulfate 325 MG Tablet PO (13:51)
[2018-04-15] MEDS: Calcium (Elemental) 500 MG Tablet 1000 MG PO (13:51)
[2018-04-15] MEDS: Pantoprazole Sodium 20 MG Tablet PO ×2 (13:52→21:14)
[2018-04-15] MEDS: Magnesium Oxide 400 MG Tablet PO (13:52)
[2018-04-15] MEDS: Metoprolol Tartrate 50 MG Tablet PO ×2 (13:52→21:14)
--- NOTE | 2018-04-15 13:53 | CASEMGMT ---
SW was told physician spoke with family about Hospice/Palliative Care. They were going to wait and see how she does, but the son is asking to talk with Hospice today. SW spoke with patient's son, and confirmed he would like to talk with Hospice today. KATELYN told him that SW will fax the referral and someone from Hospice will call him to set up a time to meet. He thanked KATELYN. KATELYN called Hospice and spoke with Harmony regarding referral and faxed information. Melani OSORIO MSW
[2018-04-15 15:17] LABS: Pathologist Review Reviewed
[2018-04-15] MEDS: Acetaminophen 500 MG Tablet 1000 MG PO (15:19)
[2018-04-15 15:21] LABS: Pathologist Review Reviewed
[2018-04-15] MEDS: 0.9% Normal Saline 1,000 ML 80 ML IV (15:43)
[2018-04-15] MEDS: SEVELAMER CARBONATE 800 MG TABLET PO (18:04)
--- NOTE | 2018-04-15 22:58 | NURSING ---
Spoke with patients granddaughter at 2130 - updated on patients condition. No further questions. Will be in to see patient in the AM.
[2018-04-16] VITALS (9 sets, daily range): BP systolic 115–137; BP diastolic 65–77; PULSE 78–102; RESP 20–30; TEMP 36.7–36.8; O2SAT 94–97
[2018-04-16] MEDS: Ipratropium/Albuterol Sulfate 3 ML AMPUL.NEB INHALATION ×3 (02:20→10:54)
[2018-04-16] MEDS: 0.9% Normal Saline 1,000 ML 80 ML IV (04:59)
[2018-04-16] MEDS: Nystatin Powder 15gm Bottle 1 APPLIC TOPICAL (05:01)
[2018-04-16 06:50] LABS: Absolute Lymphocyte Count 1.16 X10^3/ul (0.83-4.51); Absolute Neutrophil Count 20.8 X10^3/uL (2.0-7.7); Basophil# 0.01 X10^3/uL; Eosinophil# 0.01 X10^3/uL; Hemoglobin 12.2 g/dl (12.0-15.0); Lymphocyte # 1.16 X10^3/ul (4.0); Lymphocyte % 5.1 % (19-41); Mean Corpuscular Hgb 29.8 pg (27.0-32.0); Mean Corpuscular Volume 90.2 fL (81-99); Mean Platelet Vol. 11.5 fl (6.2-12.0); Monocyte# 0.68 X10^3/uL; Neutrophil # 20.77 X10^3/uL (2.7-7.7); Neutrophil % 90.8 % (47-70); Platelet Count 149 K/mm3 (150-450); RBC Distribution Width CV 15.5 % (11.6-14.6); RBC Distribution Width SD 50.7 fl (35.1-43.9); White Blood Count 22.9 K/mm3 (4.4-11.0)
[2018-04-16 06:55] LABS: International Normalized Ratio 2.7; Prothrombin Time (Protime)PT. 28.6 SECONDS (11.7-14.9)
[2018-04-16 06:57] LABS: Differential Indicated SCAN CRITERIA MET; POSITIVE COUNT NO; POSITIVE DIFFERENTIAL YES; POSITIVE MORPHOLOGY YES
[2018-04-16 07:22] LABS: Albumin, Serum 2.4 g/dL (3.2-5.0); BUN 133 mg/dL (7-18); BUN/Creat Ratio 27.4 RATIO (10-20); Calcium,Total 8.5 mg/dL (8.5-10.1); Chloride 98 mmol/L (98-107); Creatinine, Serum 4.86 mg/dL (0.55-1.02); EST Glomerular Filtration Rate 9 mL/min (>60); Est Glom Filt Rate - Afr Amer 11 mL/min (>60); Estimated Creatinine Clearance 8.17 ml/min; Glucose 102 mg/dL (74-106); Phosphorus 8.1 mg/dL (2.5-4.9); Sodium Level 135 mmol/L (136-145)
[2018-04-16 07:23] LABS: Differential Comment SCANNED
--- NOTE | 2018-04-16 07:43 | PN_ITS ---
Subjective: Chief complaint: Follow-up after admission for sepsis due to bilateral lower extremity cellulitis and acute cystitis, found to have streptococcal bacteremia and also diagnosed with acute on chronic renal failure, hyperkalemia and acute on chronic diastolic CHF. Patient seen and examined. No acute events overnight. She did not complain much as yesterday but she is very short of breath, dyspneic and tachypneic. She denied chest pain or abdominal pain. Her urine output still very low, no improvement. Her kidney function still worsening. She is afebrile, blood pressure and heart rate are stable, pulse ox is maintained on 2 L. - Physical Exam General: Alert, Cooperative, - - She is in moderate to severe respiratory distress HEENT: Atraumatic, PERRLA, EOMI, Normocephalic Oral: Moist Mucosa, No Gingival or Mucosal Lesions/ Ulcerations Neck: Supple, No JVD, Negative Carotid Bruits, Trachea Midline, Thyroid Normal Size and Texture Lungs: No wheeze, Diminished, Rales, Rhonchi, Short of Breath, Tachypneic, - - Markedly decreased breath sounds bilateral, scattered rhonchi, Rales. Cardiovascular: Regular rate, Regular Rhythm, Normal S1, Normal S2, PMI Normal Abdomen: Bowel Sounds Present, Soft, Non Tender, Non-Distended, No Hepato- splenomegaly, Obese Extremities: No clubbing, No cyanosis, No edema Skin: No rashes, No breakdown Lymphatic: No Cervical, Supraclavicular, or Inguinal Adenopathy Neurological: Cranial nerves II-XII grossly intact, Neuro grossly intact Psych/Mental Status: Flat Affect Vital Signs Temp Pulse Resp BP Pulse Ox 98.1 F 93 24 H 115/65 97 04/16/18 03:11 04/16/18 07:10 04/16/18 03:11 04/16/18 03:11 04/16/18 03:11 Oxygen Flow Rate (L/min) 2 Oxygen Delivery Method Nasal Cannula Weight: 243 lb Body Mass Index (BMI) 40.4 Intake and Output for Last 24 Hours 04/14/18 04/15/18 04/16/18 23:59 23:59 23:59 Intake Total 2107 / 2107 1382 / 1382 764 / 764 Output Total 305 / 305 345 / 345 100 / 100 Balance 1802 / 1802 1037 / 1037 664 / 664 Microbiology Past 72 Hours 10/27/18 14:40 Urine Culture - Final Urine Catheter - Ace Klebsiella pneumoniae sp pneum 04/13/18 17:15 Blood Culture - Final Blood Culture (Wb) - Anticubital Right Streptococcus agalactiae (B) 04/13/18 15:41 Bacteria Detection (PCR) - Final Blood Culture (Wb) - Anticubital Right Streptococcus agalactiae (B) Blood Culture - Final Streptococcus agalactiae (B) Laboratory Tests Past 24 Hrs 04/13/18 04/14/18 04/14/18 12:05 05:55 05:55 WBC RBC Hgb Hct MCV MCH MCHC RDW RDW Differential Plt Count MPV Immature Gran % (Auto) Neut % (Auto) Lymph % (Auto) [place] % (Auto) Eos % (Auto) Baso % (Auto) Absolute Neuts (auto) Absolute Lymphs (auto) Total Counted Differential Comment Diff Path Review Reviewed Reviewed PT INR Sodium Potassium Chloride Carbon Dioxide BUN Creatinine Estim Creat Clear Calc Est GFR (MDRD) Af Amer Est GFR (MDRD) Non-Af BUN/Creatinine Ratio Glucose Calcium Phosphorus Albumin PTH Intact 290.7 H 04/16/18 04/16/18 04/16/18 06:28 06:28 06:28 WBC 22.9 H RBC 4.10 L Hgb 12.2 Hct 37.0 MCV 90.2 MCH 29.8 MCHC 33.0 RDW 15.5 H RDW Differential 50.7 H Plt Count 149 L MPV 11.5 Immature Gran % (Auto) 1.100 H Neut % (Auto) 90.8 H Lymph % (Auto) 5.1 L [place] % (Auto) 3.0 Eos % (Auto) 0.0 Baso % (Auto) 0.0 Absolute Neuts (auto) 20.8 H Absolute Lymphs (auto) 1.16 Total Counted Not Reportable Differential Comment SCANNED Diff Path Review PT 28.6 H INR 2.7 Sodium 135 L Potassium 4.0 Chloride 98 Carbon Dioxide 22.0 BUN 133 H* Creatinine 4.86 H Estim Creat Clear Calc 8.17 Est GFR (MDRD) Af Amer 11 L Est GFR (MDRD) Non-Af 9 L BUN/Creatinine Ratio 27.4 H Glucose 102 Calcium 8.5 Phosphorus 8.1 H Albumin 2.4 L PTH Intact POC Glucose 04/15/18 11:12 POC Glucose 101 Medical Necessity - Tobacco Use Smoking Status: Former smoker Assessment/Plan This is an 82 years old female patient presented to the emergency room because of shortness of breath and cough and she was found to have severe sepsis secondary to acute bilateral lower extremity cellulitis, acute on chronic renal failure and acute on chronic diastolic CHF. #1 severe sepsis: Secondary to bilateral lower extremity cellulitis and bacteremia as well as acute cystitis. She is on IV Rocephin, adjusted based on her cultures. She has been afebrile overnight, blood pressure and heart rate are stable, pulse ox is maintained on 2 L. Blood culture revealed Streptococcus agalactiae, sensitivity reviewed. She has very poor urine output, kidney function is worsening. Yesterday, I spoke with the patient's family in details and they are considering hospice and palliative care. #2 acute bilateral lower extremity cellulitis: Again, she is on IV Rocephin as above. Vital signs are fairly stable at this point. #3 streptococcal bacteremia: On IV Rocephin. Blood culture reviewed and Streptococcus agalactiae sensitive to Rocephin. #4 acute cystitis: Urine culture revealed Klebsiella pneumonia which was sensitive to Rocephin as well. Plan as above. #5 acute on chronic renal failure: Secondary to acute tubular necrosis and severe sepsis. Ultrasound of the kidneys revealed mild cortical thinning of the kidneys otherwise normal. Her BUN and creatinine continued to worsen although she has been on gentle IV fluids for hydration. Urine output is very poor. Nephrology on the case. Family and the patient herself refused dialysis. Plan to discuss with the family again regarding hospice and palliative care. #6 acute on chronic diastolic CHF: She is only on metoprolol. She is not on diuretics because of acute on chronic renal failure with worsening BUN and creatinine. 2D echocardiogram revealed ejection fraction of 65%, severe mitral stenosis, severe pulmonary hypertension, severely enlarged right atrium and moderately enlarged left atrium. Plan as above. #7 Coumadin induced coagulopathy: INR still trending up. At this time, no evidence of active bleeding. Coumadin held. Today's INR is down to 2.7.. Patient received 1 dose of p.o. vitamin K. #8 non-ST elevation [place]: It is likely secondary to heart strain secondary to acute on chronic CHF as well as severe sepsis and infection. Patient denied any chest pain, troponins are trending down. She is only on metoprolol #9 hypertension: At this time, blood pressure stable. She is on metoprolol #10 chronic atrial fibrillation: Rate is controlled. INR is elevated at 2.7. She is on metoprolol for rate control. #11 coronary artery disease: EKG reviewed as above. Troponins are trending down. Plan to continue metoprolol. #12 DVT prophylaxis: INR is 2.7. #13 CODE STATUS: DNR CCA. Confirmed with patient's family. Plan to discuss with the family again today about hospice and palliative care. This note was generated with [employer] software. It may contain incorrect words, spelling, and punctuation that were not noted in checking the note before signing.
--- NOTE | 2018-04-16 08:47 | PN.RENAL_ITS ---
Subjective: arrousable but more lethargic today. DW nursing. Pt has pain to movement. Unable to complete stress test yesterday. Hospice evaluation yesterday. Renal fx continues to decline with poor urine output. - Physical Exam General: Lethargic Lungs: Diminished, Using Accessory Muscles Cardiovascular: Irregular Rate Abdomen: Bowel Sounds Present, Soft, Non Tender, Non-Distended Extremities: Edema Psych/Mental Status: - - lethargic Vital Signs Temp Pulse Resp BP Pulse Ox 98.1 F 93 20 H 115/65 94 04/16/18 03:11 04/16/18 07:10 04/16/18 07:05 04/16/18 03:11 04/16/18 07:05 Oxygen Flow Rate (L/min) 2 Oxygen Delivery Method Nasal Cannula Weight: 110.223 kg Body Mass Index (BMI) 40.4 Intake and Output for Last 24 Hours 04/14/18 04/15/18 04/16/18 23:59 23:59 23:59 Intake Total 2107 / 2107 1382 / 1382 764 / 764 Output Total 305 / 305 345 / 345 100 / 100 Balance 1802 / 1802 1037 / 1037 664 / 664 Microbiology Past 72 Hours 04/13/18 14:40 Urine Culture - Final Urine Catheter - Ace Klebsiella pneumoniae sp pneum 04/13/18 17:15 Blood Culture - Final Blood Culture (Wb) - Anticubital Right Streptococcus agalactiae (B) 04/13/18 15:41 Bacteria Detection (PCR) - Final Blood Culture (Wb) - Anticubital Right Streptococcus agalactiae (B) Blood Culture - Final Streptococcus agalactiae (B) Laboratory Tests Past 24 Hrs 04/13/18 04/14/18 04/16/18 12:05 05:55 06:28 WBC RBC Hgb Hct MCV MCH MCHC RDW RDW Differential Plt Count MPV Immature Gran % (Auto) Neut % (Auto) Lymph % (Auto) [place] % (Auto) Eos % (Auto) Baso % (Auto) Absolute Neuts (auto) Absolute Lymphs (auto) Total Counted Differential Comment Diff Path Review Reviewed Reviewed PT INR Sodium 135 L Potassium 4.0 Chloride 98 Carbon Dioxide 22.0 BUN 133 H* Creatinine 4.86 H Estim Creat Clear Calc 8.17 Est GFR (MDRD) Af Amer 11 L Est GFR (MDRD) Non-Af 9 L BUN/Creatinine Ratio 27.4 H Glucose 102 Calcium 8.5 Phosphorus 8.1 H Albumin 2.4 L 04/16/18 04/16/18 06:28 06:28 WBC 22.9 H RBC 4.10 L Hgb 12.2 Hct 37.0 MCV 90.2 MCH 29.8 MCHC 33.0 RDW 15.5 H RDW Differential 50.7 H Plt Count 149 L MPV 11.5 Immature Gran % (Auto) 1.100 H Neut % (Auto) 90.8 H Lymph % (Auto) 5.1 L [place] % (Auto) 3.0 Eos % (Auto) 0.0 Baso % (Auto) 0.0 Absolute Neuts (auto) 20.8 H Absolute Lymphs (auto) 1.16 Total Counted Not Reportable Differential Comment SCANNED Diff Path Review PT 28.6 H INR 2.7 Sodium Potassium Chloride Carbon Dioxide BUN Creatinine Estim Creat Clear Calc Est GFR (MDRD) Af Amer Est GFR (MDRD) Non-Af BUN/Creatinine Ratio Glucose Calcium Phosphorus Albumin POC Glucose 04/15/18 11:12 POC Glucose 101 Medical Necessity - Tobacco Use Smoking Status: Former smoker Assessment/Plan 1. KIMBERLEY likely due to ATN, sepsis. Creatinine rising, remains oliguric. Pt poor dialysis candidate due to multiple comorbid condition, poor quality of life. Hospice consulted. 2. Sepsis with strep in blood. Urine c/s showing GNR. Continue with iv antibx. WBC remains elevated. 3. UTI c/s with GNR. 4. Chronic atrial fibrillation on coumadin at [facility], on hold for Supratherapeutic INR. 5. Pulmonary hypertension, valvular disease s/p AVR 6. NSTEMI +troponins, cardiology consulted. Stress test incomplete yesterday
--- NOTE | 2018-04-16 09:36 | NURSING ---
Was in to change dressing to the left lower leg. lots of family present at bedside crying. according to progress notes, patient has declined and hospice has been consulted. will check back later. did not change dressing at this time.
--- NOTE | 2018-04-16 09:48 | CASEMGMT ---
Per RN patient is doing much worse today and would really benefit from going to the Inpatient Hospice Facility. She said the physician is going to talk with the family today. SW let Belle at Hospice know this information. Melani OSORIO MSW
[2018-04-16] MEDS: Menthol/Lanolin/Calamine/Znox 113 GM Tube 1 APPLIC TOPICAL (10:56)
--- NOTE | 2018-04-16 11:59 | DS.PCM_ITS ---
Discharge Date and Diagnosis Date of Admission: 04/13/18 Date of Discharge: 04/16/18 - Primary Discharge Diagnosis #1 severe sepsis. #2 acute bilateral lower extremity cellulitis. #3 streptococcal bacteremia. #4 Klebsiella pneumonia acute cystitis. #5 acute hypoxic respiratory failure. #6 acute on chronic renal failure. #7 acute on chronic diastolic CHF. #8 Coumadin induced coagulopathy. #8 non-ST elevation [place]. 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 Prominent markings consistent with mild pulmonary venous congestion. 2. Status post mediastinotomy and valve replacement. Electronically Signed: Elijah Milner MD at 13:23 EDT Tel , Service support , Chest CT 04/13/18 13:35 IMPRESSION: Chronic interstitial lung changes without superimposed acute alveolar disease. Cardiomegaly. Multiple remote thoracic and lumbar compression fractures, including T5, T6, T7, and T12. Moderate retropulsion at the T12 level. Electronically Signed: Dean Medina MD at 15:29 EDT Tel , Service support , Renal Ultrasound 04/13/18 19:21 IMPRESSION: There is mild cortical thinning of the kidneys Urinary bladder aorta and IVC cannot be seen because of overlying bowel gas. Electronically Signed: Chau Mayfield MD at 21:35 EDT , Service support , Consultations 04/14/18 15:38 Consult: Onc/Wound/yarding and folding machine operator Routine Comment: Reason for Consult:: ALICIA Saucedo, nephrology. Dr. Pierre, cardiology. Operations: - - Hemiarthroplasty, right hip, 02/09/17. Procedures: 2-D Echocardiogram, EKG Summary of Care Provided: The patient is a 82 year old F admitted because of shortness of breath and cough and she was found to have multiple acute problems including severe sepsis secondary to acute bilateral lower extremity cellulitis and acute cystitis as well as streptococcal bacteremia and also found to have acute on chronic renal failure and acute on chronic diastolic congestive heart failure complicated by acute hypoxic respiratory failure. She was treated with IV cefepime and va ncomycin for severe sepsis secondary to bilateral leg cellulitis and acute cystitis as well as streptococcal bacteremia. His urine culture revealed Klebsiella pneumoniae. Blood culture revealed Streptococcus agalactiae. There was no obvious source of this bacteremia and urine culture revealed different type of bacteria. Although patient was mostly afebrile during this hospital stay and her blood pressure and heart rate was stable, her respiratory status worsened secondary to acute on chronic diastolic CHF with oliguria and worsening kidney function. 2D echocardiogram revealed ejection fraction 65%, severe mitral stenosis, severe pulmonary hypertension with RVSP of 86. Her baseline creatinine has been around 1.9 mg/dL and on admission, it was up to 4.21 mg/dL. Nephrology was consulted and she was started on gentle IV fluids for hydration. In spite of hydration, her kidney function just continued to decline. Kidney ultrasound revealed mild cortical thinning of the kidney is otherwise normal. Nephrology and myself discussed the option of hemodialysis to the patient and family and they refused given her age and multiple acute on chronic medical problems. She was continued on very gentle hydration with IV fluids but her kidney function continued to decline and her urine output was very poor. After another discussion with the patient's family regarding hemodialysis, the patient herself and her family refused to go for dialysis given her age and multiple acute on chronic medical problems and probable subsequent poor quality of life. He was found to have highly elevated INR secondary to Coumadin for which she received vitamin K and her INR improved. There was no evidence of active bleeding. Upon agreement of the patient and her family, hospice and palliative care team consulted and decision was made to transfer the patient to inpatient hospice facility. Patient was transferred to inpatient hospice facility. - Physical Exam General: Alert, Cooperative, - - very short of breath, distress. HEENT: PERRLA, EOMI, Normocephalic Oral: Moist Mucosa, No Gingival or Mucosal Lesions/ Ulcerations Neck: Supple, No JVD, Negative Carotid Bruits, Trachea Midline, Thyroid Normal Size and Texture Lungs: Clear to auscultation, No rhonchi, No rales, Diminished, Short of Breath, Tachypneic, Using Accessory Muscles, Wheezes Cardiovascular: Regular rate, Regular Rhythm, Normal S1, Normal S2, PMI Normal Abdomen: Bowel Sounds Present, Soft, Non Tender, Non-Distended, No Hepato- splenomegaly, Obese Extremities: No clubbing, No cyanosis, No edema Skin: No rashes, No breakdown Lymphatic: No Cervical, Supraclavicular, or Inguinal Adenopathy Neurological: Cranial nerves II-XII grossly intact, Neuro grossly intact Psych/Mental Status: Flat Affect Vital Signs Temp Pulse Resp BP Pulse Ox 98.2 F 102 H 20 H 137/77 H 96 04/16/18 09:18 04/16/18 10:54 04/16/18 10:54 04/16/18 09:18 04/16/18 09:18 Oxygen Flow Rate (L/min) 2 Oxygen Delivery Method Nasal Cannula Weight: 243 lb Body Mass Index (BMI) 40.4 Intake and Output for Last 24 Hours 04/14/18 04/15/18 04/16/18 23:59 23:59 23:59 Intake Total 2107 / 2107 1382 / 1382 764 / 764 Output Total 305 / 305 345 / 345 100 / 100 Balance 1802 / 1802 1037 / 1037 664 / 664 Microbiology Past 72 Hours 04/13/18 14:40 Urine Culture - Final Urine Catheter - Ace Klebsiella pneumoniae sp pneum 04/13/18 17:15 Blood Culture - Final Blood Culture (Wb) - Anticubital Right Streptococcus agalactiae (B) 04/13/18 15:41 Bacteria Detection (PCR) - Final Blood Culture (Wb) - Anticubital Right Streptococcus agalactiae (B) Blood Culture - Final Streptococcus agalactiae (B) Laboratory Tests Past 24 Hrs 04/13/18 04/14/18 04/16/18 12:05 05:55 06:28 WBC RBC Hgb Hct MCV MCH MCHC RDW RDW Differential Plt Count MPV Immature Gran % (Auto) Neut % (Auto) Lymph % (Auto) [place] % (Auto) Eos % (Auto) Baso % (Auto) Absolute Neuts (auto) Absolute Lymphs (auto) Total Counted Differential Comment Diff Path Review Reviewed Reviewed PT INR Sodium 135 L Potassium 4.0 Chloride 98 Carbon Dioxide 22.0 BUN 133 H* Creatinine 4.86 H Estim Creat Clear Calc 8.17 Est GFR (MDRD) Af Amer 11 L Est GFR (MDRD) Non-Af 9 L BUN/Creatinine Ratio 27.4 H Glucose 102 Calcium 8.5 Phosphorus 8.1 H Albumin 2.4 L 04/16/18 04/16/18 06:28 06:28 WBC 22.9 H RBC 4.10 L Hgb 12.2 Hct 37.0 MCV 90.2 MCH 29.8 MCHC 33.0 RDW 15.5 H RDW Differential 50.7 H Plt Count 149 L MPV 11.5 Immature Gran % (Auto) 1.100 H Neut % (Auto) 90.8 H Lymph % (Auto) 5.1 L [place] % (Auto) 3.0 Eos % (Auto) 0.0 Baso % (Auto) 0.0 Absolute Neuts (auto) 20.8 H Absolute Lymphs (auto) 1.16 Total Counted Not Reportable Differential Comment SCANNED Diff Path Review PT 28.6 H INR 2.7 Sodium Potassium Chloride Carbon Dioxide BUN Creatinine Estim Creat Clear Calc Est GFR (MDRD) Af Amer Est GFR (MDRD) Non-Af BUN/Creatinine Ratio Glucose Calcium Phosphorus Albumin Home Medications: Medications to take at Discharge Ferrous Sulfate 325 mg PO DAILY 12/23/15 Metoprolol Tartrate [Lopressor (beta jignesh)] 50 mg PO BID 12/23/15 Ergocalciferol [Vitamin D] 50,000 unit PO TU 01/13/16 Acetaminophen [Mapap] 1,000 mg PO DINNER 02/08/17 Cholecalciferol (VIT D3) [Vitamin D3] 1,000 unit PO DAILY #30 tablet 02/11/17 Docusate Sodium [Colace] 200 mg PO BID #60 capsule 02/11/17 Bumetanide 1 mg PO DAILY #30 02/14/17 Bumetanide [Bumex] 2 mg NG LUNCH 04/13/18 Calcium (Elemental) [Os-Roger 500] 1,000 mg PO DAILY 04/13/18 Magnesium Oxide [Mag-Ox 400] 400 mg PO QODAY 04/13/18 Omeprazole [Prilosec] 20 mg PO BID 04/13/18 Spironolactone [Aldactone] 25 mg PO BID 04/13/18 Warfarin Sodium [Coumadin] 4 mg PO [id number] 04/13/18 Warfarin [Coumadin ([facility])] 6 mg PO DILLON@1700 04/13/18 Primary Care Physician: Shelby Pena MD [Primary Care Provider] - Medical Necessity - Tobacco Use Smoking Status: Former smoker Meaningful Use Info Meaningful Use Diagnoses (Choose all that apply): CHF - CHF MELISA/ARB ordered at discharge?: No Reason MELISA/ARB not ordered?: Worsening renal function Documented LVEF (%): 65 Code Visit Inpatient E&M: 91953 Disch Hosp
--- NOTE | 2018-04-16 12:08 | CASEMGMT ---
SW called [facility] and let them know patient will be going to the inpatient Hospice unit today. Her Medical Administrative Technician is Mery Davis, they will notify her. Plan: [facility] Melani LAZO
== END 2018-04-16 12:13 | disposition hospice, inpatient (51) | DRG 871 ==
LOC: ED 12:52 → PCU 16:34
PROVIDERS: Family Medicine; Internal Medicine Nephrology; Admitting Provider Student in an Organized Health Care Education/Training Program; Emergency Provider Emergency Medicine; Family Provider Internal Medicine; PCP Internal Medicine; Visit Provider Hospitalist
DX: A40.1 Sepsis due to streptococcus, group B (principal); I50.33 Acute on chronic diastolic (congestive) heart failure; J96.01 Acute respiratory failure with hypoxia; N17.0 Acute kidney failure with tubular necrosis; I21.4 Non-ST elevation (NSTEMI) myocardial infarction; L03.116 Cellulitis of left lower limb; E87.2 Acidosis; L03.115 Cellulitis of right lower limb; N30.00 Acute cystitis without hematuria; I13.0 Hypertensive heart and chronic kidney disease with heart failure and stage 1 through stage 4 chronic kidney disease, or unspecified chronic kidney disease; I87.332 Chronic venous hypertension (idiopathic) with ulcer and inflammation of left lower extremity; L97.929 Non-pressure chronic ulcer of unspecified part of left lower leg with unspecified severity; D62 Acute posthemorrhagic anemia; R65.20 Severe sepsis without septic shock; R79.1 Abnormal coagulation profile; I48.2 Chronic atrial fibrillation; Z66 Do not resuscitate; B96.1 Klebsiella pneumoniae [K. pneumoniae] as the cause of diseases classified elsewhere; Z95.2 Presence of prosthetic heart valve; Z79.01 Long term (current) use of anticoagulants; I25.10 Atherosclerotic heart disease of native coronary artery without angina pectoris; Z51.5 Encounter for palliative care; N18.3 Chronic kidney disease, stage 3 (moderate); M80.88XD Other osteoporosis with current pathological fracture, vertebra(e), subsequent encounter for fracture with routine healing; I27.20 Pulmonary hypertension, unspecified; F80.9 Developmental disorder of speech and language, unspecified; I89.0 Lymphedema, not elsewhere classified
CPT/HCPCS: 36415; 51702; 71045; 71250; 76770; 80048; 80053; 80069; 80202; 81001; 82570; 82962; 83605; 83735; 83880; 83970; 84300; 84484; 85025; 85027; 85610; 85730; 87040; 87077; 87086; 87088; 87149; 87186; 92523; 93005; 93306; 94002; 94640; 97110; 97163; 97166; 97530; 97802; 99251; 99285; J7030; J7040; A4216; G0463; J1940